=== PATIENT | female | born 1965 | race Caucasian/White ===

== ENCOUNTER 2017-01-24 21:48 | Inpatient (IN) | payer MEDICARE, OTHER ==
[~2017-01-24] VITALS: Ht 154.9 cm; Wt 74.0 kg
[~2017-01-24 21:48] MED LIST: ABILIFY2 MG PO; ACCOLATE20 MG PO; ADVAIR DISK1 INH; APAP OR; ASPIRIN81 MG PO; BACTRIM DS1 TAB PO; BUSPIRONE5 MG PO; CEPHALEXIN500 MG PO; CIPRO500 MG OR; COMBIVENT IN; DALIRESP500 MCG PO; DONEPEZIL10 MG PO; DOXYCYCL HYC100 M3 OR; DUONEB IN; EFFEXOR XR150 MG OR; EFFEXOR XR75 MG PO; FERR SULFATE325 MG PO; FIORICET PO; FLEXERIL10 MG PO; FLOVENT HFA44 MCG IN; FLUTICASONE50 MCG; GABAPENTIN300 MG PO; HUMULI1; HYDROCHLOROT12.5 MG PO; HYDROCO/APAP1 TA9 PO; K-PHO1 OR; LASIX 40 MG TAB40 MG PO; LEVAQUIN750 MG PO; LEVEMIR SC; LEVEMIR1000 UNITS SC; LORTAB 1010 MG PO; LOSARTAN POT50 MG PO; MEDDOSEPAK OR; MEDDOSEPAK PO; MEMANTINE HCL5 MG PO; NORCO1 TAB PO; NORVASC10 M1 PO; NOVOLIN R SC; NOVOLOG100 IU/1 M SC; NYSTATIN100000 M1 PO; OXYBUTYNIN5 MG PO; OXYCOD OR; PREDNISONE10 MG PO; PREVACID15 M1 PO; PREVACID30 M1 PO; PROBIOTIC COLON PO; PROTONIX40 MG PO; PROVENTIL INH17 GM IN; PROVENTIL0.083 % IN; PROZAC40 MG PO; RANITIDINE150 MG PO; RESTORIL15 MG PO; RISPERDAL0.25 MG PO; RISPERDAL0.5 MG PO; RISPERDAL1 M1 OR; RISPERIDONE0.5 MG PO; ROBITUSSIN AC10 ML PO; SINGULAIR 10 MG10 MG PO; SYMBICORT 80-4.5MCG IN; SYMBICORT1 AE1 IN; TOPAMAX25 MG PO; TRAZODONE50 MG PO; VENLAFAXINE HC150 MG PO; VENTOLIN HFA IN; XANAX XR0.5 MG PO; [UNRECOGNIZED DRUG - OTHER] PO
[2017-01-24 22:59] LABS: HEMATOCRIT 38.1 % (37.0-47.0); HEMOGLOBIN 11.6 g/dl (12.0-16.0); IMMATURE GRANULOCYTES 0.9 % (0.0-1.0); MEAN CELL VOLUME 102.7 fL CALC (80.0-100.0); MEAN CORPUSCULAR HGB 31.3 pG CALC (26.0-32.0); MEAN CORPUSCULAR HGB CONC 30.4 g/L CALC (32.0-36.0); NEUT# 10.12 thou/uL (2.00-7.15); RED BLOOD COUNT 3.71 mill/uL (4.20-5.60); RED CELL DISTRI WIDTH 14.7 % (11.5-15.5)
[2017-01-24 23:08] LABS: ALBUMIN 3.9 g/dL (3.2-5.0); ALKALINE PHOSPHATASE 122 u/l (38-126); ANION GAP 16 (6-22 (CALC)); BILIRUBIN, TOTAL 0.4 mg/dL (0.0-1.4); BUN 19 mg/dL (7-17); BUN/CREATININE RATIO 30 (12-20 (CALC)); CALCIUM 9.1 mg/dL (8.4-10.2); CARBON DIOXIDE 32 mmol/l (22-30); CHLORIDE 98 mmol/l (95-108); CREATININE 0.6 mg/dL (0.5-1.0); GFR > 60 ML/MIN (>=60 (CALC)); GFR FOR AFR.AMER. > 60 ML/MIN (>=60 (CALC)); GLUCOSE 105 mg/dL (65-105); POTASSIUM 3.2 mmol/l (3.5-5.1); SGOT/AST 19 u/l (14-36); SGPT/ALT 28 u/l (9-52); SODIUM 143 mmol/l (137-146); TOTAL PROTEIN 7.4 g/dL (6.3-8.2)
[2017-01-24 23:19] LABS: MYOGLOBIN 176 ng/mL (0 - 62)
[2017-01-25 02:21] LABS: URINE BILIRUBIN - DIPSTICK NEGATIVE (NEGATIVE); URINE BLOOD DIPSTICK NEGATIVE (NEGATIVE); URINE CLARITY CLEAR; URINE COLOR YELLOW; URINE GLUCOSE - DIPSTICK NEGATIVE (NEGATIVE); URINE KETONE NEGATIVE (NEGATIVE); URINE LEUK ESTERASE NEGATIVE (NEGATIVE); URINE NITRITE - DIPSTICK NEGATIVE (Negative); URINE PH 5.5 (4.5-8.0); URINE PROTEIN - DIPSTICK TRACE mg/dL (NEG-TRACE); URINE SPECIFIC GRAVITY >=1.030; URINE UROBILINOGEN - DIPSTICK 0.2 E.U./dL (0.2)
[2017-01-25 02:25] LABS: COCAINE NEGATIVE (NEGATIVE); METHADONE NEGATIVE (NEGATIVE); TETRAHYDROCANNABIONOL NEGATIVE (NEGATIVE)
[2017-01-25 02:26] LABS: BARBITURATES NEGATIVE (NEGATIVE); TRICYLIC ANTIDEPRESSANTS NEGATIVE (NEGATIVE)
[2017-01-25 02:27] LABS: OXCYCODONE NEGATIVE (NEGATIVE)
[2017-01-25 05:00] VITALS: BP 102/61; BP 93/61
[2017-01-25 07:47] VITALS: BP 97/60
[2017-01-25 15:38] VITALS: BP 95/50
[2017-01-25 19:10] VITALS: BP 101/71
[2017-01-25 20:21] LABS: CHOLESTEROL HDL RATIO 3.5 (<4.4 (CALC))
[2017-01-25 23:40] VITALS: BP 106/67
[2017-01-26 04:40] VITALS: BP 102/66
[2017-01-26 04:47] LABS: HEMATOCRIT 34.4 % (37.0-47.0); HEMOGLOBIN 10.7 g/dl (12.0-16.0); MEAN CELL VOLUME 101.2 fL CALC (80.0-100.0); MEAN CORPUSCULAR HGB 31.5 pG CALC (26.0-32.0); MEAN CORPUSCULAR HGB CONC 31.1 g/L CALC (32.0-36.0); RED BLOOD COUNT 3.4 mill/uL (4.20-5.60); RED CELL DISTRI WIDTH 13.9 % (11.5-15.5)
[2017-01-26 05:04] LABS: ANION GAP 16 (6-22 (CALC)); BUN 9 mg/dL (7-17); BUN/CREATININE RATIO 16 (12-20 (CALC)); CALCIUM 8.8 mg/dL (8.4-10.2); CARBON DIOXIDE 29 mmol/l (22-30); CHLORIDE 100 mmol/l (95-108); CREATININE 0.6 mg/dL (0.5-1.0); GFR > 60 ML/MIN (>=60 (CALC)); GFR FOR AFR.AMER. > 60 ML/MIN (>=60 (CALC)); GLUCOSE 261 mg/dL (65-105); MAGNESIUM 2.2 mg/dL (1.6-2.3); POTASSIUM 4.3 mmol/l (3.5-5.1); SODIUM 140 mmol/l (137-146)
[2017-01-26 08:10] VITALS: BP 113/71
[2017-01-26 11:05] VITALS: BP 108/59
[2017-01-26 15:02] VITALS: BP 100/55
[2017-01-26] MEDS ORDERED: MONTELUKAST SOD10 MG PO (17:12)
[2017-01-26] MEDS ORDERED: NORFLEX30 MG/M1 PO (17:13)
[2017-01-26] MEDS ORDERED: NOVOLIN 70/30 SC (17:16)
[2017-01-26] MEDS ORDERED: PROAIR HFA108 MCG/AC IN (18:14)
[2017-01-26] MEDS ORDERED: PROTONIX40 M2 PO (18:15)
[2017-01-26] MEDS ORDERED: RESTASIS0.05 % OU (18:19)
[2017-01-26] MEDS ORDERED: RISPERIDONE0.5 MG PO (18:20)
[2017-01-26] MEDS ORDERED: SYMBICORT1 AE1 IN (18:20)
[2017-01-26] MEDS ORDERED: TOPAMAX50 M1 PO (18:25)
[2017-01-26] MEDS ORDERED: [UNRECOGNIZED DRUG - OTHER] SC (18:33)
[2017-01-26] MEDS ORDERED: ZYRTEC10 M5 PO (18:34)
[2017-01-26] MEDS ORDERED: ABILIFY5 MG PO (18:35)
[2017-01-26] MEDS ORDERED: BUSPIRONE15 MG PO (18:36)
[2017-01-26] MEDS ORDERED: DALIRESP500 MCG PO (18:36)
[2017-01-26] MEDS ORDERED: FIORICET PO (18:37)
[2017-01-26] MEDS ORDERED: FLONASE AL50 MCG/ACT (18:39)
[2017-01-26] MEDS ORDERED: FLUOXETINE20 MG PO (18:39)
[2017-01-26] MEDS ORDERED: GABAPENTIN100 MG PO (18:40)
[2017-01-26] MEDS ORDERED: MEMANTINE HCL10 MG PO (18:41)
[2017-01-26] MEDS ORDERED: LEVEMIR100 UNIT/M SC (18:42)
[2017-01-26 20:40] VITALS: BP 108/65
[2017-01-27] VITALS (7 sets, daily range): BP systolic 102–136; BP diastolic 61–71
[2017-01-27 06:43] LABS: HEMATOCRIT 34.6 % (37.0-47.0); HEMOGLOBIN 10.8 g/dl (12.0-16.0); IMMATURE GRANULOCYTES 1.7 % (0.0-1.0); MEAN CELL VOLUME 101.8 fL CALC (80.0-100.0); MEAN CORPUSCULAR HGB 31.8 pG CALC (26.0-32.0); MEAN CORPUSCULAR HGB CONC 31.2 g/L CALC (32.0-36.0); NEUT# 15.38 thou/uL (2.00-7.15); RED BLOOD COUNT 3.4 mill/uL (4.20-5.60); RED CELL DISTRI WIDTH 14.2 % (11.5-15.5)
[2017-01-27 07:05] LABS: ANION GAP 14 (6-22 (CALC)); BUN 11 mg/dL (7-17); BUN/CREATININE RATIO 18 (12-20 (CALC)); CALCIUM 9.2 mg/dL (8.4-10.2); CARBON DIOXIDE 29 mmol/l (22-30); CHLORIDE 103 mmol/l (95-108); CREATININE 0.6 mg/dL (0.5-1.0); GFR > 60 ML/MIN (>=60 (CALC)); GFR FOR AFR.AMER. > 60 ML/MIN (>=60 (CALC)); GLUCOSE 126 mg/dL (65-105); POTASSIUM 4.4 mmol/l (3.5-5.1); SODIUM 142 mmol/l (137-146)
[2017-01-28 04:07] VITALS: BP 117/79
[2017-01-28 04:56] LABS: ANION GAP 14 (6-22 (CALC)); BUN 18 mg/dL (7-17); BUN/CREATININE RATIO 28 (12-20 (CALC)); CALCIUM 9.1 mg/dL (8.4-10.2); CARBON DIOXIDE 27 mmol/l (22-30); CHLORIDE 104 mmol/l (95-108); CREATININE 0.7 mg/dL (0.5-1.0); GFR > 60 ML/MIN (>=60 (CALC)); GFR FOR AFR.AMER. > 60 ML/MIN (>=60 (CALC)); GLUCOSE 209 mg/dL (65-105); POTASSIUM 4.3 mmol/l (3.5-5.1); SODIUM 141 mmol/l (137-146)
[2017-01-28 05:55] LABS: HEMATOCRIT 38.2 % (37.0-47.0); HEMOGLOBIN 11.7 g/dl (12.0-16.0); IMMATURE GRANULOCYTES 3.9 % (0.0-1.0); MEAN CELL VOLUME 102.7 fL CALC (80.0-100.0); MEAN CORPUSCULAR HGB 31.5 pG CALC (26.0-32.0); MEAN CORPUSCULAR HGB CONC 30.6 g/L CALC (32.0-36.0); NEUT# 8.58 thou/uL (2.00-7.15); RED BLOOD COUNT 3.72 mill/uL (4.20-5.60); RED CELL DISTRI WIDTH 14.7 % (11.5-15.5)
[2017-01-28 08:23] VITALS: BP 116/73
[2017-01-28 11:00] VITALS: BP 106/67
[2017-01-28] MEDS ORDERED: PREDNISONE10 MG PO (12:36)
[2017-01-28] MEDS ORDERED: LEVAQUIN750 MG PO (12:36)
== END 2017-01-28 13:55 | DRG 189 ==
LOC: ENPENDDIS → ED 21:48 → ED-I 01-25 01:33 → ED 01-25 01:54 → MS2 01-25 01:55
PROVIDERS: Emergency Medicine; Internal Medicine; Nurse Practitioner Family; ADMIT Internal Medicine; ATTEND Internal Medicine
DX: J96.22 Acute and chronic respiratory failure with hypercapnia (principal); G93.40 Encephalopathy, unspecified; E87.2 Acidosis; J44.0 Chronic obstructive pulmonary disease with (acute) lower respiratory infection; F03.90 Unspecified dementia, unspecified severity, without behavioral disturbance, psychotic disturbance, mood disturbance, and anxiety; J44.1 Chronic obstructive pulmonary disease with (acute) exacerbation; J96.21 Acute and chronic respiratory failure with hypoxia; J20.9 Acute bronchitis, unspecified; E11.9 Type 2 diabetes mellitus without complications; F31.9 Bipolar disorder, unspecified; G89.4 Chronic pain syndrome; S00.03XA Contusion of scalp, initial encounter; M51.26 Other intervertebral disc displacement, lumbar region; S82.831A Other fracture of upper and lower end of right fibula, initial encounter for closed fracture; R55 Syncope and collapse; W19.XXXA Unspecified fall, initial encounter; Y92.009 Unspecified place in unspecified non-institutional (private) residence as the place of occurrence of the external cause; Z99.81 Dependence on supplemental oxygen; Z79.4 Long term (current) use of insulin; Z87.891 Personal history of nicotine dependence; Z87.01 Personal history of pneumonia (recurrent)
CPT/HCPCS: J1650

== ENCOUNTER 2017-04-13 15:08 | Emergency (ER) | payer MEDICARE, OTHER ==
[~2017-04-13 15:08] MED LIST changes: +ABILIFY5 MG PO; +BUSPIRONE15 MG PO; +FLONASE AL50 MCG/ACT; +FLUOXETINE20 MG PO; +GABAPENTIN100 MG PO; +LEVEMIR100 UNIT/M SC; +MEMANTINE HCL10 MG PO; +MONTELUKAST SOD10 MG PO; +NORFLEX30 MG/M1 PO; +NOVOLIN 70/30 SC; +PROAIR HFA108 MCG/AC IN; +PROTONIX40 M2 PO; +RESTASIS0.05 % OU; +TOPAMAX50 M1 PO; +ZYRTEC10 M5 PO; +[UNRECOGNIZED DRUG - OTHER] SC
== END 2017-04-13 15:23 | disposition left against medical advice (07) ==
LOC: ED 15:08 → LWOBS 15:23
DX: Z91.19 Patient's noncompliance with other medical treatment and regimen (principal)

== ENCOUNTER 2017-07-26 13:38 | Emergency (ER) | payer MEDICARE, OTHER ==
[~2017-07-26] VITALS: Ht 154.9 cm; Wt 70.0 kg
[2017-07-26] MEDS ORDERED: MOTRIN400 MG PO (15:52)
[2017-07-26 16:30] VITALS: BP 117/81
== END 2017-07-26 16:30 | disposition home or self-care (01) ==
LOC: ED 13:38
DX: M25.512 Pain in left shoulder (principal); W18.39XA Other fall on same level, initial encounter; Y93.01 Activity, walking, marching and hiking; Y92.009 Unspecified place in unspecified non-institutional (private) residence as the place of occurrence of the external cause; M25.522 Pain in left elbow; I10 Essential (primary) hypertension

== ENCOUNTER 2018-12-07 11:01 | Inpatient (IN) | payer MEDICARE, OTHER ==
[2018-12-07] VITALS (12 sets, daily range): BP systolic 109–145; BP diastolic 64–92
[~2018-12-07] VITALS: Ht 154.9 cm; Wt 84.0 kg
[~2018-12-07 11:01] MED LIST changes: +MOTRIN400 MG PO
--- NOTE | 2018-12-07 11:01 | NUR ---
P IMMEDIATELY TO TX ROOM VIA WC IN RESP DISTRESS, SKIN PALE AND THOMPSON, PT ALERT
--- NOTE | 2018-12-07 11:10 | NUR ---
PT SITTING UPRIGHT IN STRECHER IN TRIPOD POSITION. DAUGHTER REPORTS INCREASED SOB X 1 WEEK. SHE ALSO REPORTS MOTHER HAS BEEN IN AND OUT OF HOPITAL FOR PNEUMONIA AND COPD CHANGES. PT SAO2 85% ON 3L NC AT THIS TIME. RR, 30. NUMEROUS ATTEMPTS MADE FOR IV ACCESS. DR LAST AT BEDSIDE AND IV ACCESS OBTAINED. NEB TREATMENT INITIATED.
--- NOTE | 2018-12-07 11:20 | NUR ---
PT PLACED ON BIPAP.
[2018-12-07 11:30] LABS: HEMATOCRIT 35.5 % (37.0-47.0); HEMOGLOBIN 10.8 g/dl (12.0-16.0); MEAN CELL VOLUME 102.6 fL CALC (80.0-100.0); MEAN CORPUSCULAR HGB 31.2 pG CALC (26.0-32.0); MEAN CORPUSCULAR HGB CONC 30.4 g/L CALC (32.0-36.0); RED BLOOD COUNT 3.46 mill/uL (4.20-5.60)
[2018-12-07 11:34] LABS: IMMATURE GRANULOCYTES 8.4 % (0.0-5.0); NEUT# 2.64 thou/uL (2.00-7.15)
[2018-12-07 11:50] LABS: ALBUMIN 3.7 g/dL (3.2-5.0); ALKALINE PHOSPHATASE 147 u/l (38-126); ANION GAP 13 (6-22 (CALC)); BILIRUBIN, TOTAL 0.5 mg/dL (0.0-1.4); BUN 8 mg/dL (7-17); BUN/CREATININE RATIO 18 (12-20 (CALC)); CARBON DIOXIDE 27 mmol/l (22-30); CHLORIDE 106 mmol/l (95-108); CREATININE 0.5 mg/dL (0.5-1.0); GFR > 60 ML/MIN (>=60 (CALC)); GFR FOR AFR.AMER. > 60 ML/MIN (>=60 (CALC)); POTASSIUM 3.6 mmol/l (3.5-5.1); SGOT/AST 16 u/l (14-36); SODIUM 143 mmol/l (137-146)
--- NOTE | 2018-12-07 11:50 | NUR ---
PT WANTING BIPAP TAKEN OFF, RT AT BEDSIDE AND EXPLAINED IMPORTANCE AND NEED OF BIPAP. PT AGREED TO LEAVE IT ON. PT BP 89/66, NOTIFIED. PT ALSO REPORTS MIDSTERNAL CHEST PAIN AFTER STARTING BIPAP AND REQUESTING SOMETHING FOR PAIN.
[2018-12-07 12:00] LABS: MYOGLOBIN 15 ng/mL (0 - 62)
--- NOTE | 2018-12-07 12:30 | NUR ---
PT RESTING COMFORTABLY IN STRETCHER IN NAD. PT TALKING THROUGH BIPAP WITH FAMILY MEMBER AND LAUGHING. RT AT BEDSIDE MAKING CHANGES TO BIPAP. IV FLUIDS AND ROCEPHIN INFUSING. PT REPORTS CONTINUED PAIN TO CHEST. NOTIFIED.
--- NOTE | 2018-12-07 13:05 | NUR ---
PT REPORT TO PAUL STARR.
--- NOTE | 2018-12-07 13:25 | NUR ---
PT TOLERATING BIPAP WELL WITH O2 SAT 95%. FAMILY AT BEDSIDE. UPDATED PT ON POC AND ADMIT.
--- NOTE | 2018-12-07 13:45 | NUR ---
AT BEDSIDE TALKING WITH FAMILY. FAMILY WANTS PATIENT TO STAY AT [facility] IF POSSIBLE
--- NOTE | 2018-12-07 14:00 | NUR ---
PT CONTINUES WITH IVF BOLUS ORDERED, TOLERATING WELL. NO RESP DISTRESS. MAEW. ALERT AND ORIENTED X3.
--- NOTE | 2018-12-07 14:06 | NUR ---
Dr Mendoza at bedside to examine pt
--- NOTE | 2018-12-07 14:20 | NUR ---
INITIATED ALEXA FOR PT COMFORT.EXPLAINED TO PT AND FAMILY. PT UNBALE TO RELATE ALL MEDS OR VERIFY WITH LIST THAT WAS BROUGHT. FAMILY SENT HOME TO GET MEDICATION BOTTLES AND BRING TO BEDSIDE.
--- NOTE | 2018-12-07 15:05 | NUR ---
PT MEDICATED FOR 7/10 PAIN TO LEFT SIDED RIBS. PT REPORTS PAIN TO LEFT RIBS SINCE LAST BRONCOSCOPY "A FEW WEEKS AGO". PT UPDATED ON PLAN FOR ADMISSION AND WAIT TIME. IV FLUIDS INFUSING WITH NO DIFFICULTY. DAUGHTER AT BEDSIDE. PT TOLERTING BIPAP, SAO2 96%.
[2018-12-07 15:21] LABS: URINE BILIRUBIN - DIPSTICK NEGATIVE (NEGATIVE); URINE BLOOD DIPSTICK NEGATIVE (NEGATIVE); URINE COLOR YELLOW; URINE GLUCOSE - DIPSTICK 500 mg/dL (NEGATIVE); URINE KETONE NEGATIVE (NEGATIVE); URINE LEUK ESTERASE NEGATIVE (NEGATIVE); URINE NITRITE - DIPSTICK NEGATIVE (Negative); URINE PH 6.5 (4.5-8.0); URINE PROTEIN - DIPSTICK TRACE mg/dL (NEG-TRACE); URINE SPECIFIC GRAVITY >=1.030; URINE UROBILINOGEN - DIPSTICK 0.2 E.U./dL (0.2)
[2018-12-07 15:25] LABS: BARBITURATES NEGATIVE (NEGATIVE); COCAINE NEGATIVE (NEGATIVE); METHADONE NEGATIVE (NEGATIVE); OXCYCODONE NEGATIVE (NEGATIVE); TETRAHYDROCANNABIONOL NEGATIVE (NEGATIVE); TRICYLIC ANTIDEPRESSANTS NEGATIVE (NEGATIVE)
--- NOTE | 2018-12-07 15:35 | NUR ---
MD AND PTS CARE NURSE NOTIFIED OF LACTIC ACID 5.0.
--- NOTE | 2018-12-07 15:37 | NUR ---
REPORT CALLED TO PAUL NOBLE.
--- NOTE | 2018-12-07 15:53 | NUR ---
SWEETIE LAZO DISCUSSED CONTINUED HYPOTENSION AND ELEVATED LACTIC ACID. NEW ORDERS RECEIVED, PLAN FOR CENTRAL LINE PLACEMENT DISCUSSED WITH DR LAST. PT TALKING THROUGH MASK TO FAMILY AND HAS AGREED FOR CENTRAL LINE PLACEMENT. VERISITE OBTAINED.
--- NOTE | 2018-12-07 16:25 | NUR ---
CENTRAL LINE INITIATED TO RIGHT SUBCLAVIAN BY DR LAST. PT TOLERATED WELL, BLOOD RETURN NOTED TO ALL 3 PORTS.
--- NOTE | 2018-12-07 16:51 | NUR ---
LEVOPHED INITAIED AT 8 MCG/MIN BP 95/63 AT THIS TIME.
--- NOTE | 2018-12-07 16:52 | NUR ---
Admission Note Report Given to: PAUL NOBLE Transported by: Wheelchair X Stretcher Transported with: X Nurse Transporter X Patent IV X O2 X Auto Body Mechanic Apprentice PT TO ICU ROOM 5 ON BIPAP IN STABLE CONDITION ON LEVOPHED INFUSION. PT CARE RELINQUISHED TO PAUL NOBLE.
--- NOTE | 2018-12-07 17:05 | NUR ---
PT ADMITTED TO ICU BED 5 FROM ED, PT TRANFERRED FROM STRETCHER TO BED WITH AX3. PT IS ON BIPAP, SEE RT NOTES. PT HAS 22G TO RFA/SL, 22G TO LH WITH NS RUNNING AT 999ML/HR. NO S/S OF REDNESS/SWELLING OR INFILTRATION NOTED AT SITE. PT HAS CENTRAL LINE/TL TO R SUBCLAVIAN WITH LEVOPHED AT 8MCG/MIN PER PROTOCOL, NO S/S OF INFILTRATION NOTED AT THIS TIME.ASSESSMENT COMPLETED. SEPSIS PROTOCOL IN PLACE. PT A&OX3, ABLE TO MAKE NEEDS KNOWN. ORIENTED TO ROOM, UNIT AND CALL LIGHT. CALL LIGHT IN REACH, WILL MONITOR.
--- NOTE | 2018-12-07 19:10 | NUR ---
PATIENT IS ALERT AND ORIENTED X4. ON CONTINUOUS BIPAP. COARSE LUNG SOUNDS ON RIGHT FRONT AND POSTERIOR SIDES. PUPILS 4 MM SLUGGISH. AFEBRILE. SINUS RHYTHM. ABDOMEN DISTENDED AND SOFT, ACTIVE BOWEL SOUNDS, RADIAL AND PEDAL PULSES STRONG, NO PEDAL EDEMA. NO OPEN SKIN AREAS JUST BRUISING. RIGHT SUBCLAVIAN TRIPLE LUMEN CENTRAL LINE INTACT AND BROWN AND RED LUMENS FLUSH AND RETURN BLOOD PROPERLY. WHITE LUMEN FLUSHES BUT DOES NOT RETURN BLOOD. LEVOPHED DRIP IS INFUSING AT 5 MCG/HR OR 18.8 ML/HR. RFA 22 GAUGE IV INTACT AND FLUSHES PROPERLY, LH 22 GAUGE INTACT AND FLUSHES PROPERLY. PATIENT HAS BEEN EDUCATED ABOUT BIPAP AND PLAN OF CARE, I HAVE REPORTED TO HER THE MEDICATIONS SHE WILL BE RECEIVING TONIGHT. CALL LIGHT WITHIN REACH.
--- NOTE | 2018-12-07 21:00 | NUR ---
DAUGHTER AND MALE VISITOR AT BEDSIDE.
--- NOTE | 2018-12-07 21:20 | NUR ---
I HAVE MET AT BEDSIDE WITH PATIENT'S DAUGHTER AND HAVE GIVEN UPDATES. BOX OF MEDICATIONS WAS BROUGHT EARLIER BY DAUGHTER AND I ASKED HER IF ALL THE MEDICATIONS IN THE BOX WERE CURRENT, DAUGHTER SAID IT WAS BEST TO CALL HER PHARMACIES WHICH ARE [facility] AND [facility] TO GET AN ACCURATE LIST. DAUGHTER AND I HAVE LOOKED AT ALL MEDICATIONS IN THE BOX, EMPTY LYRICA BOTTLE FOUND, AND MEDICATION BOTTLE OF FIORICET IN BOX, DAUGHTER WILL BE TAKING BOX OF MEDICATIONS HOME WHICH PATIENT AGREES.
--- NOTE | 2018-12-07 22:14 | NUR ---
PATIENT HOB 45 DEGREES. ON BIPAP. NO ACUTE DISTRESS SHOWN. I HAVE EXPLAINED TO HER BS IS 350 AND HAVE GIVEN HER 4 UNITS INSULIN, DAUGHTER HAD BROUGHT HER A PEPSI AND POURED IT IN A CUP, I HAVE GIVEN PATIENT WATER AND ENCOURAGED HER TO DRINK WATER, TO HELP CONTROL BLOOD SUGAR WELL, PATIENT REPORTS SHE HAS NOT DRANK OUT OF THE PEPSI. CALL LIGHT WITHIN REACH.
[2018-12-08] VITALS (34 sets, daily range): BP systolic 83–120; BP diastolic 56–80
--- NOTE | 2018-12-08 00:03 | NUR ---
RT IN ROOM. PATIENT WITH HOB 45 DEGREES, SLEEPING. NO ACUTE DISTRESS SHOWN. ON CONTINUOUS BIPAP, SATS 92%. NO NEEDS AT THIS TIME. AFEBRILE. LEVOPHED AT 2.5 MCG/MIN. NORMAL SALINE AT 100ML/HR. CALL LIGHT WITHIN REACH.
--- NOTE | 2018-12-08 01:07 | NUR ---
ASSISTED PATIENT TO BEDSIDE COMMODE WITH MINIMAL ASSIST. BIPA ON. PATIENT WEARS PULL UP BRIEFS AND SHE IS INCONTINENT AT TIMES. URINE IS YELLOW AND CLEAR. TRANSFERRED BACK TO BED SAFELY. CALL LIGHT WITHIN REACH.
--- NOTE | 2018-12-08 02:00 | NUR ---
PATIENT WITH HOB 45 DEGREES, SLEEPING. NO ACUTE DISTRESS SHOWN, CONTINUES TO BE ON BIPAP. SATS 92%. NO NEEDS AT THIS TIME. CALL LIGHT WITHIN REACH.
--- NOTE | 2018-12-08 03:00 | NUR ---
RT IN ROOM.
--- NOTE | 2018-12-08 04:35 | NUR ---
PATIENT WITH HOB 45 DEGREES, ON CONTINUOUS BIPAP, SATS 91%-93%. NO ACUTE DISTRESS SHOWN. LUNGS SOUNDS ARE COARSE AND EXPIRATORY WHEEZING NOTED POSTERIORLY. PATIENT SLEEPING BUT ABLE TO AROUSE EASILY. ASSISTED TO REMOVE MASK TO DRINK WATER. NO NEEDS AT THIS TIME. CALL LIGHT WITHIN REACH. WILL CONTINUE TO MONITOR.
[2018-12-08 05:20] LABS: MEAN CELL VOLUME 102.9 fL CALC (80.0-100.0); MEAN CORPUSCULAR HGB 31.5 pG CALC (26.0-32.0); MEAN CORPUSCULAR HGB CONC 30.6 g/L CALC (32.0-36.0); RED BLOOD COUNT 2.76 mill/uL (4.20-5.60)
[2018-12-08 05:37] LABS: CHOLESTEROL HDL RATIO 4.7 (<4.4 (CALC)); HEMATOCRIT 28.4 % (37.0-47.0); HEMOGLOBIN 8.7 g/dl (12.0-16.0); MAGNESIUM 1.9 mg/dL (1.6-2.3)
[2018-12-08 05:40] LABS: ANION GAP 7 (6-22 (CALC)); BUN 8 mg/dL (7-17); BUN/CREATININE RATIO 19 (12-20 (CALC)); CARBON DIOXIDE 31 mmol/l (22-30); CHLORIDE 107 mmol/l (95-108); CREATININE 0.4 mg/dL (0.5-1.0); GFR > 60 ML/MIN (>=60 (CALC)); GFR FOR AFR.AMER. > 60 ML/MIN (>=60 (CALC)); POTASSIUM 3.7 mmol/l (3.5-5.1); SODIUM 142 mmol/l (137-146)
--- NOTE | 2018-12-08 06:15 | NUR ---
PATIENT SLEEPING, EASILY AROUSES. ON CONTINUOUS BIPAP, SATS 90%. NORMAL SALINE INFUSING AT 100 ML/HR. NO REPORTS OF PAIN, NO NEEDS AT THIS TIME. CALL LIGHT WITHIN REACH. WILL CONTINUE TO MONITOR.
--- NOTE | 2018-12-08 06:45 | NUR ---
RESPIRATORY REMOVED PT FROM BIPAP AND PLACED PT ON O2 4L NC.
--- NOTE | 2018-12-08 07:00 | NUR ---
PT RESTING IN BED AWAKE. PT IS ALERT AND ORIENTED X3. SHIFT ASSESSMENT COMPLETED AT THIS TIME. IV PATENT X3. CALL LIGHT IN REACH. WILL CONTINUE TO MONITOR.
--- NOTE | 2018-12-08 07:30 | NUR ---
ASSISTED PT TO BSC TO VOID. PT ABLE TO TRANSFER SELF WITH MINIMAL ASSIST.
--- NOTE | 2018-12-08 07:40 | NUR ---
OBTIANED NORSE CULTURE FOR HISTORY OF MRSA PER PATIENT AND PLACED PT ON CONTACT PRECAUTIONS
--- NOTE | 2018-12-08 07:45 | NUR ---
PT SET UP FOR AM MEAL
--- NOTE | 2018-12-08 09:45 | NUR ---
PT RESTING IN BED AWAKE TALKING ON PHONE RESP ARE EVEN AND UNLABORED. NO DISTRESS NOTED. CALL LIGHT IN REACH. WILL CONTINUE TO MONITOR.
--- NOTE | 2018-12-08 10:30 | NUR ---
OBTAINED CONSENT FROM PATIENT FOR MEDICAL RECORD RELEASE FOR [facility] AND [facility]. RELEASES FAXED TO BOTH FOR RECORDS
--- NOTE | 2018-12-08 10:45 | NUR ---
DR JOVEL AT BEDSIDE TO DISCUSS PLAN OF CARE WITH PATIENT
--- NOTE | 2018-12-08 10:53 | NUR ---
DAUGHTER ABISAI CALLED UPSET SHOUTING ON PHONE AND THREATENING TO SHOW OUT AND WANTING ANOTHER DRUG TEST TO BE DONE STATING MOTHER IS TO SICK TO DO DRUGS AND THREATENING TO COME HOSPITAL AND SHOW OUT. DAUGHTER ALSO UPSET THAT PATIENT WAS TOLD TO CLEAN OUT MEDICINE CONTAINER AND HAVE DAUGHTER BRING BACK MEDICINE TO UPDATE MED LIST. DAUGHTER ASKED NOT TO YELL AT STAFF. DAUGHTER HUNG UP PHONE
--- NOTE | 2018-12-08 11:01 | NUR ---
EXPLAINED TO BRISEYDA THAT DAUGHTER CALLED STAFF YELLING AND UPSET AND REQUESTED THAT PATIENT BE RETESTED. EXPLAINED THAT PATIENT TESTED POSITIVE IN 2017. PT CONTINUES TO DENY DRUG USE. EXPLAINED THAT WE COULD RETEST. FRESH HAT AND URINE SPECIMEN CUP IN ROOM FOR PATIENT TO VOID. PT AGREED TO BE RETESTED.
--- NOTE | 2018-12-08 11:45 | NUR ---
DAUGHTER ABISAI CALLED AGAIN UPSET ABOUT DRUG TEST AND WANTIGN TO BE NOTIFIED ONCE REPEAT IS DOEN. EXPLAINED THAT THE PATIENT COULD NOTIFY HER. DAUGHTER WAS UPSET. PATIENT GAVE PERMISSION TO NOTIFY DAUGHTER ABISAI OF REPEAT UDS SHE IS HER POA. DAUGHTER STATES THAT SHE IS UNABLE TO BRING MEDICATIONS DUE TO NO TRANSPORTATION. EXPLAINED THAT WAS OK. DAUGHTER VERY UPSET AT THIS TIME STILL. AFTER SPEAKING WITH PATIENT WE DECIDED TO HAVE DA[facility] AND GO THROUGH MEDICATION BOX VIA PHONE WITH NURSE AND PROVIDE MEDICATION LIST.
--- NOTE | 2018-12-08 12:30 | NUR ---
PT REFUSED ALL PERSONAL CARE STATING THAT SHE IS TIRED AND WILL WAIT UNTIL TOMORROW
--- NOTE | 2018-12-08 12:54 | NUR ---
VISITORS INTO ROOM AT THIS TIME.
--- NOTE | 2018-12-08 13:10 | NUR ---
NURSE INTO ROOM TO DISCUSS PLAN OF CARE WITH VISITORS PER PT REQUEST. PLAN OF CARE REVIEWED WITH FRIEND JUNAID. EXPLAINED THAT WE ARE AWAITING MEDICAL RECORDS FROM PREVIOUS ADMITS FROM [facility] AND [facility]. JUNAID STATES THAT SHE WILL GO AND DEVELOPMENT TECHNICAL LEAD MEDICATIONS AND BRING TO HOSPITAL FOR MEDCIATION RECONCILLIATION.
--- NOTE | 2018-12-08 13:30 | NUR ---
PT ASSISTED UP TO BSC TO VOID. URINE SPECIMEN OBTAINED DRUG SCREEN AND SENT TO LAB PER PATIENT AND DAUGHTER REQUEST.
[2018-12-08 13:43] LABS: BARBITURATES NEGATIVE (NEGATIVE); COCAINE NEGATIVE (NEGATIVE); METHADONE NEGATIVE (NEGATIVE); OXCYCODONE NEGATIVE (NEGATIVE); TETRAHYDROCANNABIONOL NEGATIVE (NEGATIVE); TRICYLIC ANTIDEPRESSANTS NEGATIVE (NEGATIVE)
--- NOTE | 2018-12-08 14:01 | NUR ---
REVIEWED UDS RESULTS WITH PATIENT. OFFERRED TO CALL RESULTS TO DAUGHTER PER PREVIOUS REQUEST. PATIENT STATES SHE HAS BEEN UNABLE TO REACH DAUGHTER AT THIS TIME AND WILL LET HER KNOW THE RESULTS SOON SHE IS ABLE TO GET IN TOUCH WITH HER.
--- NOTE | 2018-12-08 14:40 | NUR ---
FRIEND JUNAID AT BEDSIDE AND BROUGHT HOME MEDICATIONS IN. MADE LIST OF ALL HOME MEDICAITONS. DAUGHTER DEMETRIA ON PHONE OFFERRED TO RN CORRECTIONS RESULTS OF URINE DRUG SCREEN FRIEND JUNAID STATES THAT DAUGHTER WILL NOT SPEAK TO THIS NURSE. THIS NURSE VERBALIZED UNDERSTANDING. FRIEND STATED SHE WOULD NOTIFY OF RESULTS. CODE PROVIDED TO JUNAID TO PROVIDE TO NECESSARY FAMILY MEMBERS TO BE ABLE TO CALL FOR UPDATES.
[2018-12-08] MEDS ORDERED: BENZTROPINE0.5 MG PO (14:45)
[2018-12-08] MEDS ORDERED: BACLOFEN10 MG PO (14:47)
[2018-12-08] MEDS ORDERED: PREDNISONE10 MG PO (14:49)
[2018-12-08] MEDS ORDERED: PROTONIX40 MG PO (15:00)
[2018-12-08] MEDS ORDERED: RISPERDAL1 M1 PO (15:02)
[2018-12-08] MEDS ORDERED: DALIRESP500 MCG PO (15:03)
[2018-12-08] MEDS ORDERED: LYRICA25 MG PO (15:03)
[2018-12-08] MEDS ORDERED: MOTRIN800 MG PO (15:04)
[2018-12-08] MEDS ORDERED: PROZAC40 MG PO (15:06)
[2018-12-08] MEDS ORDERED: TRAZODONE300 MG PO (15:07)
[2018-12-08] MEDS ORDERED: TOPAMAX50 M1 PO (15:08)
[2018-12-08] MEDS ORDERED: ARIPIPRAZOLE5 MG PO (15:08)
[2018-12-08] MEDS ORDERED: ZANTAC150 M1 PO (15:10)
[2018-12-08] MEDS ORDERED: SINGULAIR10 MG PO (15:12)
[2018-12-08] MEDS ORDERED: EFFEXOR XR150 MG PO (15:14)
[2018-12-08] MEDS ORDERED: LEVEMIR100 UNIT/M SC (15:25)
[2018-12-08] MEDS ORDERED: [UNRECOGNIZED DRUG - OTHER] OU (15:32)
--- NOTE | 2018-12-08 16:00 | NUR ---
PT SITTING UP IN BED TALKING ON PHONE. CALL LIGHT IN REACH. WILL CONTINUE TO MONITOR
--- NOTE | 2018-12-08 16:45 | NUR ---
PER PATIENT REQUEST IV site LH discontinued, cath intact. No edema , no redness, voices no discomfort.
--- NOTE | 2018-12-08 17:14 | NUR ---
PT ASSISTED TO BSC TO VOID
--- NOTE | 2018-12-08 17:45 | NUR ---
PT SET UP FOR PM MEAL.
--- NOTE | 2018-12-08 18:15 | NUR ---
PT SITTING UP IN BED WATCHING TV. RESP ARE EVEN AND UNLABORED. NO DISTRESS NOTED. CALL LIGHT IN REACH. WILL CONTINUE TO MONITOE.
--- NOTE | 2018-12-08 19:35 | NUR ---
PATIENT IS SITTING UP IN BED. ON 4 LITERS NASAL CANNULA. NO ACUTE RESPIRATORY DISTRESS NOTED. ALERT AND ORIENTED X4. PUPILS 4MM AND SLUGGISH. ABDOMEN SOFT AND DISTENDED WITH ACTIVE BOWEL SOUNDS. PATIENT HAS POSTERIOR COARSE AND EXPIRATORY WHEEZING LS. NO EDEMA PRESENT. RADIAL AND PEDAL PULSES STRONG. URINE IS YELLOW AND CLEAR, INCONTINENT AT TIMES, WEARS PULL UP BRIEFS. NO SKIN ISSUES. REPORTS NO PAIN. RIGHT SUBCLAVIAN CENTRAL LINE TRIPLE LUMEN FLUSHES IN ALL AND ONLY RETURNS BLOOD IN BROWN AND BLUE LINES. RFA 22 GAUGE IV IS INTACT AND FLUSHES PROPERLY. NORMAL SALINE INFUSING AT 100ML/HR. PATIENT HAS A LOOSE NONPRODUCTIVE COUGH. NO NEEDS AT THIS TIME. CALL LIGHT WITHIN REACH WILL CONTINUE TO MONITOR.
--- NOTE | 2018-12-08 21:30 | NUR ---
PATIENT REQUESTED TO SLEEP WITH N/C., NOT TO BE PLACED ON BIPAP. RN WILL CALL IF SPO2 DROP LOWER THAN 90%
--- NOTE | 2018-12-08 21:40 | NUR ---
PATIENT ASSISTED TO BSC WITH MINIMAL ASSIST. BRIEF WAS CHANGED DUE TO INCONTINENCE. PATIENT SAFELY TRANSFERRED BACK TO BED WITH HOB 45 DEGREES. BECOMES SHORT OF BREATH WITH EXERTION. ON 4 LITERS NASAL CANNULA. CALL LIGHT WITHIN REACH.
[2018-12-09] VITALS (20 sets, daily range): BP systolic 101–146; BP diastolic 57–84
--- NOTE | 2018-12-09 00:10 | NUR ---
PATIENT WITH HOB 45 DEGREES, ON NASAL CANNULA AT 4 LITERS/MIN. NO ACUTE DISTRESS SHWON. SLEEPING, AROUSES EASILY. AFEBRILE. SELF REPOSITIONS. NO COMPLAINTS OF PAIN. CALL LIGHT WITHIN REACH. WILL CONTINUE TO MOITOR.
--- NOTE | 2018-12-09 00:30 | NUR ---
PATIENT ASSISTED TO AND FROM BSC WITH MINIMAL ASSIST. SHORT OF BREATH WITH EXERTION. CALL LIGHT WITHIN REACH.
--- NOTE | 2018-12-09 02:19 | NUR ---
PATIENT WITH HOB 45 DEGREES, ON NASAL CANNULA AT 4L/MIN. NO ACUTE DISTRESS SHOWN. CALL IGHT WITHIN REACH.
--- NOTE | 2018-12-09 04:43 | NUR ---
PATIENT ASSISTED TO AND FROM [facility] WITH MINIMAL ASSIST, SHE HAD 200ML AND WAS INCONTINENT ON HER BRIEF. ON 4 LITERS NASAL CANNULA. SOB WITH EXERTION. NO COMPLAINTS OF PAIN. CALL LIGHT WITHIN REACH.
[2018-12-09 05:17] LABS: HEMATOCRIT 29.2 % (37.0-47.0); HEMOGLOBIN 8.7 g/dl (12.0-16.0); MEAN CELL VOLUME 105.8 fL CALC (80.0-100.0); MEAN CORPUSCULAR HGB 31.5 pG CALC (26.0-32.0); MEAN CORPUSCULAR HGB CONC 29.8 g/L CALC (32.0-36.0); RED BLOOD COUNT 2.76 mill/uL (4.20-5.60); RED CELL DISTRI WIDTH 19.7 % (11.5-15.5)
--- NOTE | 2018-12-09 06:14 | NUR ---
PATIENT IS SLEEPING, EASILY AROUSES. ON 4 LITERS NASAL CANNULA, SATS 94%. NO ACUTE DISTRESS SHOWN. NO NEEDS AT THIS TIME. WILL CONTINUE TO MONITOR. CALL LIGHT WITHIN RECH.
[2018-12-09 06:15] LABS: ANION GAP 6 (6-22 (CALC)); BUN 11 mg/dL (7-17); BUN/CREATININE RATIO 22 (12-20 (CALC)); CARBON DIOXIDE 34 mmol/l (22-30); CHLORIDE 106 mmol/l (95-108); CREATININE 0.5 mg/dL (0.5-1.0); GFR > 60 ML/MIN (>=60 (CALC)); GFR FOR AFR.AMER. > 60 ML/MIN (>=60 (CALC)); MAGNESIUM 2.2 mg/dL (1.6-2.3); POTASSIUM 3.7 mmol/l (3.5-5.1); SODIUM 142 mmol/l (137-146)
--- NOTE | 2018-12-09 07:20 | NUR ---
PT RESTING IN BED WITH EYES CLOSED AROUSES TO VERBAL STIMULI. PT IS ALERT AND ORIENTED X3.SHIFT ASSESSMENT COMPLETED AT THIS TIME. IV PATNET X2. CALL LIGHT IN REACH. WILL CONTINUE TO MONITOR.
--- NOTE | 2018-12-09 07:40 | NUR ---
PT ASSISTED TO BSC FOR VOID AND BM. MINIMAL ASSIST.
--- NOTE | 2018-12-09 07:45 | NUR ---
PT SET UP FOR AM MEAL
[2018-12-09] MEDS ORDERED: FLONASE AL50 MCG/ACT (08:43)
[2018-12-09] MEDS ORDERED: SYMBICORT1 AE1 IN (08:44)
[2018-12-09] MEDS ORDERED: POM PO ×2 (08:45→08:55)
[2018-12-09] MEDS ORDERED: MEMANTINE HCL10 MG PO (08:48)
[2018-12-09] MEDS ORDERED: PERCOCET1 TA4 PO (08:57)
--- NOTE | 2018-12-09 09:05 | NUR ---
PT TO MS FLOOR VIA WC FOR SHOWER ON O2 4L NC. PT TOLERATED WELL.
--- NOTE | 2018-12-09 09:50 | NUR ---
PT RETURNED TO ICU BED 5 VIA WC. PT REFUSED ORAL CARE. CALL LIGHT IN REACH. WILL CONTINUE TO MONITOR.
--- NOTE | 2018-12-09 11:00 | NUR ---
DR MARQUES AT BEDSIDE TO DISCUSS PLAN OF CARE WITH PATIENT
--- NOTE | 2018-12-09 11:30 | NUR ---
PT SET UP FOR NOON MEAL
--- NOTE | 2018-12-09 11:45 | NUR ---
FRIEND JUNAID CALLED AND STATES THAT HOME O2 MACHINE HAD MOLD IN IT. SPOKE TO DR MARQUES WILL PLACE CASE MANAGEMENT CONSULT
--- NOTE | 2018-12-09 12:00 | NUR ---
TYPED UPDATED MED LIST PROVIDED FOR PATIENT WITH EDUCATION ON IMPORTANCE OF MAINTAINING AN UP TO DATE MED LIST. SPACE PROVIDED ON THIS LIST TO ADD NEW MEDS WELL. PATIENT AND FRIEND JUNAID VERBALIZED UNDERSTANDING.
--- NOTE | 2018-12-09 13:04 | NUR ---
MEDICATED PT PER MAR FOR PAIN AND COUGH. PT ASSISTED TO BSC TO VOID AND BM AND THEN BACK TO BED. CALL LIGHT IN REACH. WILL CONTINUE TO MONITOR
--- NOTE | 2018-12-09 14:00 | NUR ---
PT SITTING UP IN BED TALKING ON PHONE. RESP ARE EVEN AND UNLABORED. NO DISTRESS NOTED.CALL LIGHT IN REACH. WILL CONTINUE TO MONITOR.
--- NOTE | 2018-12-09 16:00 | NUR ---
PT SITTING UP IN BED WATCHING TV. RESP ARE EVEN ADN UNLABORED. NO DISTRESS NOTED. CALL LIGHT IN REACH. WILL CONTINUE TO MONITOR.
--- NOTE | 2018-12-09 17:26 | NUR ---
PT SET UP FOR PM MEAL AND MEDICATED PER SEP FOR PAIN AND COUGH. CALL LIGHT IN REACH. WILL CONTINUE TO MONITOR.
--- NOTE | 2018-12-09 18:50 | NUR ---
REPORT FROM Mattie HAUSER RN. ASSUMED PT. CARE.
--- NOTE | 2018-12-09 20:05 | NUR ---
PT. FOUND RESTING IN BED IN NO DISTRESS. RESPS EVEN AND UNLABORED. SKIN WARM AND DRY. AFEBRILE. C/O 7/10 PAIN TO LT. CHEST WALL WORSE WITH INSPIRATION, COUGH, DEEP BREATHING AND PALPATION. PT. DENIES OTHER COMPLAINT OF PAIN. PT. AMBULATORY TO AND FROM BEDSIDE COMMODE WITHOUT DIFFICULTIES. WATCHING TELEVISION AND SPEAKING ON TELEPHONE WITH FULL SENTENCES. ABD SOFT, DISTENDED. CALL LIGHT WITHIN REACH. SPO2 IS 85-94% ON 2L NC AT THIS TIME. LUNGS COARSE WITH WHEEZES THROUGHOUT. NO COUGH APPRECIATED AT THIS TIME. PT. ENCOURAGED TO PROVIDE SPUTUM SPECIMEN SOON POSSIBLE. ALERT, ORIENTED X 3. WILL CONTINUE TO MONITOR.
--- NOTE | 2018-12-09 21:14 | NUR ---
NEB TREATMENT IN PROGRESS AT THIS TIME.
--- NOTE | 2018-12-09 22:18 | NUR ---
PT. MEDICATED AND PROVIDED SNACK. ASSISTED TO BSC. TOLERATED WELL WITH MILD DUGGAN. BACK TO BED AND PLACED BACK ON THE MONITOR. REMAINS STABLE ON 2L NC. WILL CONTINUE TO ASSESS.
[2018-12-10] VITALS (11 sets, daily range): BP systolic 118–152; BP diastolic 68–90
--- NOTE | 2018-12-10 00:10 | NUR ---
PT. RESTING IN BED WITH EYES CLOSED. RESPS EVEN, SHALLOW, UNLABORED AT THIS TIME. BP/HR STABLE AT THIS TIME. CALL LIGHT WITHIN REACH. WILL CONTINUE TO MONITOR.
--- NOTE | 2018-12-10 02:05 | NUR ---
PT. INCONTINENT IN HER BRIEF. LINENS CHANGED AT THIS TIME. PT. ASSISTED TO BSC AND THEN BACK TO BED. REMAINS STABLE AT THIS TIME. CALL LIGHT PLACED BACK WITHIN REACH. WILL CONTINUE TO ASSESS.
--- NOTE | 2018-12-10 04:02 | NUR ---
LIGHTS DIMMED FOR COMFORT. IV FLUIDS CONTINUE TO INFUSE ORDERED. RESPS REMAINS EVEN, SHALLOW AND UNLABORED. SPO2 IS 94% ON 2L NC. CALL LIGHT REMAINS WITHIN REACH.
--- NOTE | 2018-12-10 05:01 | NUR ---
LABS DRAWN AT THIS TIME. PT. REMAINS RESTING IN BED WITH EYES CLOSED. DENIES OTHER COMPLAINTS.
[2018-12-10 05:22] LABS: HEMATOCRIT 30.2 % (37.0-47.0); MEAN CELL VOLUME 104.9 fL CALC (80.0-100.0); MEAN CORPUSCULAR HGB 31.3 pG CALC (26.0-32.0); MEAN CORPUSCULAR HGB CONC 29.8 g/L CALC (32.0-36.0); RED BLOOD COUNT 2.88 mill/uL (4.20-5.60); RED CELL DISTRI WIDTH 19.1 % (11.5-15.5)
[2018-12-10 05:41] LABS: ANION GAP 6 (6-22 (CALC)); BUN 15 mg/dL (7-17); BUN/CREATININE RATIO 30 (12-20 (CALC)); CARBON DIOXIDE 37 mmol/l (22-30); CHLORIDE 101 mmol/l (95-108); CREATININE 0.5 mg/dL (0.5-1.0); GFR > 60 ML/MIN (>=60 (CALC)); GFR FOR AFR.AMER. > 60 ML/MIN (>=60 (CALC)); POTASSIUM 3.7 mmol/l (3.5-5.1); SODIUM 140 mmol/l (137-146)
--- NOTE | 2018-12-10 07:00 | NUR ---
PT SITTING UP IN BED WATCHING TV. PT IS ALERT AND ORITNED X3. SHIFT ASSESSMENT COMPLETED AT THIS TIME. IV PATENT X2. CALL LIGHT IN REACH. WILL CONTINUE TO MONITOR.
--- NOTE | 2018-12-10 07:45 | NUR ---
PT SET UP FOR AM MEAL
--- NOTE | 2018-12-10 08:30 | NUR ---
PT HAD REMOVED O2. PT IS 77% ON ROOM AIR. INSTRUCTED PT TO PLACE O2 BACK ON AND THE IMPORTANCE OF LEAVING O2 IN PLACE.PT VERBALIZED UNDERSTANDING.
--- NOTE | 2018-12-10 10:30 | NUR ---
DR HIGGINS AT BEDSIDE TO DISCUSS PLAN OF CARE
--- NOTE | 2018-12-10 11:30 | NUR ---
PT SET UP FOR NOON MEAL
--- NOTE | 2018-12-10 11:52 | NUR ---
JACK QUIROGA CALLED FOR UPDATE. VERY UPSET THAT PT HAD STATED SHE WAS BEING TRANSFERRED. EXPLAINED THAT AT THIS TIME THE PATIENT WAS NOT BEING TRANSFERRED. REVEIWED PLAN OF CARE WITH JUNAID VIA PHONE. JUNAID REQUESTED THAT PATIENT NOT BE TRANSFERRED TO [facility]. REQUESTING IF TRANSFER IS NEEDED TO TRNASFER TO [facility]. DR HIGGINS INFORMED OF FAMILY AND PATIENT REQUEST.
--- NOTE | 2018-12-10 13:47 | NUR ---
PT SITTING UP IN BED AWAKE WATCHING TV. RESP ARE EVEN AND UNLABORED. NO DISTRESS NOTED. CALL LIGHT IN REACH. WILL CONTINUE TO MONITOR
--- NOTE | 2018-12-10 14:10 | NUR ---
PT TO RADIOLOGY VIA WHEELCHAIR ON O2 2L NC.
--- NOTE | 2018-12-10 14:35 | NUR ---
PT RETURNED FROM RADIOLOGY VIA WHEELCHAIR IN STABLE CONDITION. ASSISTED BACK TO BED.
--- NOTE | 2018-12-10 16:30 | NUR ---
#22 RFA IV site discontinued, cath intact. No edema , no redness, voices no discomfort.
--- NOTE | 2018-12-10 17:30 | NUR ---
PT SET UP FOR PM MEAL.
--- NOTE | 2018-12-10 18:00 | NUR ---
PT SITTING UP IN BED WATCHING TV. RESP ARE EVEN AND UNLABORED. CALL LIGHT IN REACH. WILL CONTINUE TO MONITOR
--- NOTE | 2018-12-10 18:45 | NUR ---
REPORT FROM Mattie HAUSER RN. ASSUMED PT. CARE.
--- NOTE | 2018-12-10 20:55 | NUR ---
PT. FOUND AWAKE, ALERT, ORIENTED X 3 IN NO DISTRESS. RESPS EVEN, SHALLOW, UNLABORED. SKIN IS WARM AND DRY. PEARL. GARSIA. DENIES COMPLAINTS OF SOB AT THIS TIME. NO COUGH NOTED. DIMINISHED WITH EXP WHEEZES NOTED THROUGHT. ABD DISTENDED, SOFT. BOWEL SOUNDS PRESENT IN ALL QUADS. STATES HER PAIN HAS BEEN BETTER TODAY AND CURRENTLY RATES A 6/10 TO LT. CHEST WALL. PT. DENIES OTHER COMPLAINTS AT THIS TIME. SITTING UP AND DRINKING COFFEE. BP/HR STABLE. SPOW IS 97% ON 2.5L NC.
--- NOTE | 2018-12-10 21:23 | NUR ---
FAMILY AT BEDSIDE AT THIS TIME. PT. ASSISTED TO BSC.
--- NOTE | 2018-12-10 23:46 | NUR ---
PT. MEDICATED WITH SLEEPING PILL AND COUGH MEDICATION PER REQUEST. IV ANTIBIOTICS INFUSING WITHOUT SX OF INFILTRATION OR REACTIONS. CALL LIGHT REMANIS WITHIN REACH. WILL CONTINUE TO ASSESS.
[2018-12-11] VITALS (10 sets, daily range): BP systolic 117–144; BP diastolic 71–90
--- NOTE | 2018-12-11 00:05 | NUR ---
ZOSYN INFUSED. NO REACTIONS NOTED. PT. FOUND RESTING WITH EYES CLOSED IN NO DISTRESS. RESPS EVEN, SHALLOW, UNLABORED. CALL LIGHT REMAINS WITHIN REACH. WILL CONTINUE TO MONITOR.
--- NOTE | 2018-12-11 02:15 | NUR ---
PT. RESTING IN BED WITH SNORING RESPIRATIONS AT THIS TIME. SPO2/HR STABLE. CALL LIGHT REMAINS WITHIN REACH. WILL CONTIUE TO ASSESS.
--- NOTE | 2018-12-11 04:30 | NUR ---
PT. AWAKE, ALERT, ORIENTED X 3. PT. RESTED CONTINUOUS SINCE 23:45 UNTIL THIS TIME. STATES SHE WAS ABLE TO GET SOME UNINTERRUPTED SLEEP. ASSISTED TO BSC AND BACK TO BED. C/O / PAIN AND WAS MEDICATED PER PHYSICIAN ORDERS. PROVIDED WITH COFFEE PER HER REQUEST. WILL CONTINUE TO ASSESS.
--- NOTE | 2018-12-11 05:00 | NUR ---
LAB SPECIMENS OBTAINED AND ALL CENTRAL LINES FLUSHED PER PROTOCOL AT THIS TIME. WILL CONTINUE TO ASSESS.
[2018-12-11 05:21] LABS: HEMATOCRIT 32.4 % (37.0-47.0); HEMOGLOBIN 9.8 g/dl (12.0-16.0); IMMATURE GRANULOCYTES 5.3 % (0.0-5.0); MEAN CELL VOLUME 105.2 fL CALC (80.0-100.0); MEAN CORPUSCULAR HGB 31.8 pG CALC (26.0-32.0); MEAN CORPUSCULAR HGB CONC 30.2 g/L CALC (32.0-36.0); PLATELET COUNT 234 thou/uL (130-400); RED BLOOD COUNT 3.08 mill/uL (4.20-5.60); RED CELL DISTRI WIDTH 18.8 % (11.5-15.5)
[2018-12-11 05:41] LABS: ALBUMIN 3.2 g/dL (3.2-5.0); ALKALINE PHOSPHATASE 101 u/l (38-126); ANION GAP 8 (6-22 (CALC)); BILIRUBIN, TOTAL 0.4 mg/dL (0.0-1.4); BUN 16 mg/dL (7-17); BUN/CREATININE RATIO 33 (12-20 (CALC)); CARBON DIOXIDE 36 mmol/l (22-30); CHLORIDE 101 mmol/l (95-108); CREATININE 0.5 mg/dL (0.5-1.0); GFR > 60 ML/MIN (>=60 (CALC)); GFR FOR AFR.AMER. > 60 ML/MIN (>=60 (CALC)); LIPASE 53 u/l (23-300); MAGNESIUM 2.1 mg/dL (1.6-2.3); POTASSIUM 3.6 mmol/l (3.5-5.1); SGOT/AST 27 u/l (14-36); SODIUM 142 mmol/l (137-146); TOTAL PROTEIN 5.8 g/dL (6.3-8.2)
[2018-12-11 05:49] LABS: AMYLASE < 30 u/l (30-110)
--- NOTE | 2018-12-11 06:05 | NUR ---
PT. FOUND RESTING WITH EYES CLOSED AND IN NO DISTRESS. RESPS REMAIN EVEN, SHALLOW AND UNLABORED. ZOSYN INITIATED AT THIS TIME AND SOLUMEDROL GIVEN PER MD ORDERS. WILL CONTINUE TO ASSESS.
[2018-12-11 06:16] LABS: MANUAL DIFFERENTIAL YES
[2018-12-11 06:17] LABS: OTHER CELL TYPE 2; PLATELET ESTIMATE NORMAL
--- NOTE | 2018-12-11 07:20 | NUR ---
PT ALERT AND ORIENTED SITTING UP IN BED, AM ASSESSMENT COMPLETED SEE INTERVENTIONS, SKIN WARM AND DRY, WITH NO BREAKDOWN NOTED, ABD SOFT BS ACTIVE WITH LAST BM LAST PM PER REPORT, O2 ON AT 2L VIA NC WITH SATS MAINTAINED, PT HAS EXERTIONAL SOB NOT NEW PER PT, LUNG SOUNDS COARSE WTIH MOIST MINIMALLY PRODUCTIVE COUGH, CONTACT PRECAUTIONS MAINTAINED FOR HX OF MRSA, NO EDEMA NOTED, TELE READING SR RATE 80-90'S BP STABLE AND PT AFEBRILE, SAFETY MEASURES REINFORCED, CALL PASCAL WITHIN REACH, WILL CONTINUE TO MONITOR.
--- NOTE | 2018-12-11 08:15 | NUR ---
PT OOB TO BSC INDEPENDENTLY, CONTINENT OF URINE AND LARGE SOFT BROWN BM, SELF YANI CARE PROVIDED, AND BACK TO BED, CALL PASCAL WITHIN REACH.
--- NOTE | 2018-12-11 09:25 | NUR ---
TAKES AM MEDIATIONS W/O INCIDENT, OFFERS NO NEW COMPLAINTS, CALL PASCAL WITHIN REACH
--- NOTE | 2018-12-11 10:19 | NUR ---
IN TO SEE PATIENT
--- NOTE | 2018-12-11 10:23 | NUR ---
PT AWARE OF PLANNED TRASNFER, WILL CALL MED SURG FOR BED PLACEMENT, DIETARY AWARE OF PT REQUEST FOR UN-SWEET TEA.
--- NOTE | 2018-12-11 11:37 | NUR ---
PT EDUCATED REGARDING BACTROBAN OINTMENT AND USAGE, INCLUDING REASON FOR ADMNISTRATION, EXPECTATIONS AND POSSIBLE SIDE EFFECTS, ALL QUESTIONS ANSWERED PT USES W/O INCIDENT, ACCU CHECKC OMPLETED AND COVERAGE GIVEN ORDERED, WILL CONTINUE TO MONITOR.
--- NOTE | 2018-12-11 11:38 | NUR ---
SET UP ASSIST PROVIDED FOR AFTERNOON MEAL, CALL PASCAL WITHIN REACH
--- NOTE | 2018-12-11 12:10 | NUR ---
TOLERATED MEAL W/O INCIDENT, CALL PASCAL WITHIN REACH
--- NOTE | 2018-12-11 13:13 | NUR ---
COFFEE PROVIDED FOR PT REQUESTED, COMFORT MEASURES PROVIDED WELL, CALL PASCAL WITHIN REACH, WILL CONTINUE TO MONITOR.
--- NOTE | 2018-12-11 14:54 | NUR ---
LIGHT BULB REPLACER AT BEDSIDE FOR ECHO ORDERED, PT OFFERS NO COMPLAINTS, CALL PASCAL WITHIN REACH
--- NOTE | 2018-12-11 15:33 | NUR ---
REPORT CALLED TO TAMMY BURDICK ON MED SURG, ROOM [id number] ASSIGNED.
--- NOTE | 2018-12-11 15:45 | NUR ---
PT ARRIVED TO FLOOR VIA W/C ACCOMPANIED BY PAUL CHAVEZ; PT AMBULATED WITH SLOW STEADY GAIT TO DIGITAL GAIT, WT AND VITALS OBTAINED; RESP EVEN AND UNLABORED ON 02@2L NC; RT CENTRAL LINE, NS KVO; PT ASK FOR A FAN; VOICE NO OTHER CONCERNS; CALL PASCAL IN REACH; SAFETY PRECAUTION REINFORCED;
--- NOTE | 2018-12-11 16:38 | NUR ---
PT SITTING UP ON EDGE OF BED WITH ONE LEG IN BED, OTHER LEG HANDING OUT; ASK FOR COFFEE AND CRAKERS (DONE); RESP SOME WHAT LABORED; NO S/S OF DISTRESS NOTED;
--- NOTE | 2018-12-11 19:14 | NUR ---
REPORT RECEIVED FROM DAY NURSE. PT IN BED NO S/O DISTRESS. IV ANTIBIOTIC THERAPY IS JUST COMPLETING. PT ASSISTED TO BSC PRIOR TO US LEAVING THE ROOM. DAY NURSE STAYED W/PT TO ASSIST IN GETTING BACK TO BED. PT IS ASKING FOR COFFEE/PROVIDED.
--- NOTE | 2018-12-11 21:06 | NUR ---
PT ASSISTED TO BSC/MODERATE BROWN SOFT STOOL W/URINE OUTPUT. PT BRIEF SOAKED/CHANGED TO BRIEFS BROUGHT FROM HOME/REQUEST AND NEW GOWN CHANGED. PT MEDICATED ORDERS PROVIDE AND ASSESSMENT COMPLETED AT THIS TIME. PT IS ASKING FOR SANDWICH AND COKE/DENIES DIET COKE. ACCU-CHECK SHOWS BLOOD SUGAR AT 205 AT THIS TIME/SNACK PROVIDED. PT ASSISTED BACK TO BED. DENIES ANY OTHER NEEDS AT THIS TIME, CALL LIGHT AT SIDE.
--- NOTE | 2018-12-12 00:23 | NUR ---
PT MEDICATED ORDERS PROVIDE W/IV ANTIBIOTIC THERAPY. PT RQUESTING COFFEE/DECAF PROVIDED DUE TO PT PREVIOUS REQUEST FOR SLEEPING PILL EARLIER AND PROVIDED. DENIES ANY OTHER NEEDS AT THIS TIME.
[2018-12-12 03:38] VITALS: BP 123/80
--- NOTE | 2018-12-12 03:50 | NUR ---
BLOOD DRAWN FROM CENTRAL LINE FOR LAB DRAWS. SITE FLUSHED ORDERS PROVIDE. PT SITTING UP IN BED AWAKE W/TV ON AND LIGHTS OFF. DENIES BEING ABLE TO SLEEP AND HAS ASKED FOR COFFEE MULTIPLE TIMES THROUGHOUT THE NIGHT/PROVIDED DECAF TWICE. DENIES ANY NEEDS AT THIS TIME. BSC BEDSIDE, PT ASKED TO CALL FOR ASSISTANCE PRIOR TO AMBULATING. CALL LIGHT IN HAND.
--- NOTE | 2018-12-12 05:29 | NUR ---
PT MEDICATED W/IV ANTIBIOTIC THERAPY AND NEW IV FLUIDS. NEW TUBING CHANGED OUT. IV SITE APPEARS HEALTHY AT THIS TIME.
[2018-12-12 05:49] LABS: HEMATOCRIT 32.4 % (37.0-47.0); HEMOGLOBIN 9.9 g/dl (12.0-16.0); IMMATURE GRANULOCYTES 5.9 % (0.0-5.0); MEAN CELL VOLUME 106.2 fL CALC (80.0-100.0); MEAN CORPUSCULAR HGB 32.5 pG CALC (26.0-32.0); MEAN CORPUSCULAR HGB CONC 30.6 g/L CALC (32.0-36.0); RED BLOOD COUNT 3.05 mill/uL (4.20-5.60)
[2018-12-12 06:08] LABS: ALBUMIN 3.2 g/dL (3.2-5.0); ALKALINE PHOSPHATASE 131 u/l (38-126); ANION GAP 9 (6-22 (CALC)); BILIRUBIN, TOTAL 0.4 mg/dL (0.0-1.4); BUN 15 mg/dL (7-17); BUN/CREATININE RATIO 29 (12-20 (CALC)); CARBON DIOXIDE 37 mmol/l (22-30); CHLORIDE 97 mmol/l (95-108); CREATININE 0.5 mg/dL (0.5-1.0); GFR > 60 ML/MIN (>=60 (CALC)); GFR FOR AFR.AMER. > 60 ML/MIN (>=60 (CALC)); MAGNESIUM 2.1 mg/dL (1.6-2.3); POTASSIUM 3.5 mmol/l (3.5-5.1); SGOT/AST 18 u/l (14-36); SODIUM 139 mmol/l (137-146); TOTAL PROTEIN 5.6 g/dL (6.3-8.2)
[2018-12-12 06:36] LABS: MANUAL DIFFERENTIAL YES
[2018-12-12 06:37] LABS: OTHER CELL TYPE 5
[2018-12-12 06:38] LABS: PLATELET COUNT 254 thou/uL (130-400)
--- NOTE | 2018-12-12 06:55 | NUR ---
REPORT RECEIVED FROM PAUL CABRERA; PT APPEARS TO BE SLEEPING; NO S/S OF DISTRESS NOTED; CALL PASCAL IN REACH.
[2018-12-12 08:14] VITALS: BP 142/85
--- NOTE | 2018-12-12 08:41 | NUR ---
PT SITTING UP IN BED EATING BREAKFAST AND WATCHING TV; ASSESSMENT COMPLETED; 02@2L NC; TRIPLE LUMEN CENTRAL LINE, FLUSHED, NS INFUSING AT 100CC/HR; VITALS STABLE; AM MEDS ADMINISTERED, TOLERATED WELL; BSC, CALL PASCAL IN REACH; NO DISTRESS NOTED; VOICE NO CONCERNS; WILL CONTINUE TO MONITOR.
--- NOTE | 2018-12-12 12:01 | NUR ---
PT SITTING UP IN BED EATING LUNCH; ZOSYN INFUSING WITHOUT DIFFICULTY; 02@2L NC; BSC & CALL PASCAL IN REACH; PT VOICE NO CONCERNS; WILL CONTINUE TO MONITOR.
--- NOTE | 2018-12-12 13:20 | NUR ---
DR HIGGINS AT BEDSIDE TO DISCUSS POC;
--- NOTE | 2018-12-12 14:37 | NUR ---
PT AMBULATING IN HER ROOM WITH PHYSICAL THERAPY; NO S/S OF DISTRESS NOTED;
[2018-12-12] MEDS ORDERED: PREDNISONE10 MG PO (14:47)
[2018-12-12] MEDS ORDERED: LEVAQUIN500 MG PO (14:48)
[2018-12-12] MEDS ORDERED: LASIX20 MG PO (14:49)
[2018-12-12] MEDS ORDERED: SONATA5 MG PO (14:49)
--- NOTE | 2018-12-12 14:50 | NUR ---
PT WAS SEEN FOR WALKER PRESCRIPTION. SHE TELLS ME THAT THE WALKER SHE HAS AT HOME WAS TOO BIG FOR HER. SHE HAS WEAKNESS ON B LE, L WEAKER THAN R WITH NUMBNESS ON B FEET DUE TO DIABETIC NEUROPATHY. SHE REPORTS THAT SHE HAS HAD MULTIPLE FALLS AT HOME BECAUSE OF THIS. ASSESSMENT OF BALANCE SHOWED MILD IMPAIRMENT WITH ABILITY TO REGAIN BALANCE THROUGH STEPPING STRATEGY. STANDING TOLERANCE = >1 MIN. GAIT ASSESSMENT SHOWED INCORRECT WAY OF UTILIZING A WALKER SHE TENDS TO PUSH THE WALKER WHILE SHE STAYS BEHIND IT. THIS WAS CORRECTED, PT WAS ABLE TO DEMONSTRATE CORRECTLY. PROPER FITTING WALKER WAS LEFT IN THE ROOM FOR DME REFERENCE.
[2018-12-12 16:00] VITALS: BP 112/71
--- NOTE | 2018-12-12 17:32 | NUR ---
PT SITTING UP IN RECLINER; 02@2L; D/C INSTRUCTIONS GIVEN TO PT ALONG WITH HOME MEDS AND NEW PRESCRIPTIONS; PT VERBALIZED UNDERSTANDING; PT WANTS TO EAT SUPPER BEFORE SHE GOES. TOLD HER TO PUSH RED BUTTON FINANCE LECTURER PASCAL WHEN RIDE GETS HERE.
--- NOTE | 2018-12-12 19:06 | NUR ---
R SUBCLAVIAN CENTRAL LINE D/C'D FOR DISCHARGE HOME. SUTURES REMOVED. 20 CM 7FR LINE REMOVED. PRESSURE HELD FOR 5 MINUTES PER PROTOCOL. GAUZE/TRANSPARENT DRESSING APPLIED.
--- NOTE | 2018-12-12 19:08 | NUR ---
Discharge instructions given. Patient verbalizes understanding of same. Discharged in stable condition via Wheelchair to Home with family. All belongings sent with pt, along with 02
== END 2018-12-12 19:08 | disposition home health service (06) | DRG 871 ==
LOC: ED 11:01 → ED-I 12:50 → ED 14:16 → ICU 14:17 → MS2 12-11 15:42
PROVIDERS: Emergency Medicine; Internal Medicine Nephrology; ADMIT Internal Medicine; ATTEND Internal Medicine
PROC: 5A09357 Assistance with Respiratory Ventilation, Less than 24 Consecutive Hours, Continuous Positive Airway Pressure (ICD-10-PCS; principal; 2018-12-07)
PROC: 02HV33Z Insertion of Infusion Device into Superior Vena Cava, Percutaneous Approach (ICD-10-PCS; 2018-12-07)
DX: A41.9 Sepsis, unspecified organism (principal); J96.22 Acute and chronic respiratory failure with hypercapnia; J96.21 Acute and chronic respiratory failure with hypoxia; R65.21 Severe sepsis with septic shock; J18.8 Other pneumonia, unspecified organism; J43.9 Emphysema, unspecified; I95.89 Other hypotension; I10 Essential (primary) hypertension; E11.9 Type 2 diabetes mellitus without complications; G89.4 Chronic pain syndrome; F31.9 Bipolar disorder, unspecified; F03.90 Unspecified dementia, unspecified severity, without behavioral disturbance, psychotic disturbance, mood disturbance, and anxiety; F41.9 Anxiety disorder, unspecified; F17.200 Nicotine dependence, unspecified, uncomplicated; Z87.01 Personal history of pneumonia (recurrent); Z99.81 Dependence on supplemental oxygen; Z79.4 Long term (current) use of insulin; Z22.322 Carrier or suspected carrier of Methicillin resistant Staphylococcus aureus

== ENCOUNTER 2018-12-24 09:53 | Emergency (ER) | payer MEDICARE, OTHER ==
[~2018-12-24] VITALS: Ht 154.9 cm; Wt 78.0 kg
[~2018-12-24 09:53] MED LIST changes: +ARIPIPRAZOLE5 MG PO; +BACLOFEN10 MG PO; +BENZTROPINE0.5 MG PO; +EFFEXOR XR150 MG PO; +LASIX20 MG PO; +LEVAQUIN500 MG PO; +LYRICA25 MG PO; +MOTRIN800 MG PO; +PERCOCET1 TA4 PO; +POM PO; +RISPERDAL1 M1 PO; +SINGULAIR10 MG PO; +SONATA5 MG PO; +TRAZODONE300 MG PO; +ZANTAC150 M1 PO; +[UNRECOGNIZED DRUG - OTHER] OU
[2018-12-24 10:53] LABS: ANION GAP 17 (6-22 (CALC)); BUN 17 mg/dL (7-17); BUN/CREATININE RATIO 35 (12-20 (CALC)); CHLORIDE 104 mmol/l (95-108); CREATININE 0.5 mg/dL (0.5-1.0); GFR > 60 ML/MIN (>=60 (CALC)); GFR FOR AFR.AMER. > 60 ML/MIN (>=60 (CALC)); POTASSIUM 3.8 mmol/l (3.5-5.1); SODIUM 143 mmol/l (137-146)
[2018-12-24 10:58] LABS: CARBON DIOXIDE 26 mmol/l (22-30)
[2018-12-24 11:45] LABS: MEAN CELL VOLUME 100.5 fL CALC (80.0-100.0); MEAN CORPUSCULAR HGB 31.6 pG CALC (26.0-32.0); MEAN CORPUSCULAR HGB CONC 31.4 g/L CALC (32.0-36.0); NEUT# 10.44 thou/uL (2.00-7.15); RED BLOOD COUNT 4.02 mill/uL (4.20-5.60)
[2018-12-24 11:47] LABS: HEMATOCRIT 40.4 % (37.0-47.0); HEMOGLOBIN 12.7 g/dl (12.0-16.0); IMMATURE GRANULOCYTES 4.8 % (0.0-5.0)
[2018-12-24 15:01] VITALS: BP 121/71
== END 2018-12-24 16:11 | disposition home or self-care (01) ==
LOC: ED 09:53
PROVIDERS: Family Medicine
DX: I20.9 Angina pectoris, unspecified (principal); I10 Essential (primary) hypertension; J44.9 Chronic obstructive pulmonary disease, unspecified; E11.9 Type 2 diabetes mellitus without complications; Z79.4 Long term (current) use of insulin

== ENCOUNTER 2019-01-01 12:10 | Observation (INO) | payer MEDICARE, OTHER ==
[~2019-01-01] VITALS: Ht 154.9 cm; Wt 78.5 kg
--- NOTE | 2019-01-01 12:13 | NUR ---
PT DIRECTLY TO ROOM 12 VIA WHEELCHAIR, PT CONVERSTATIONALLY DYSPNIC. MD AWARE OF PT STATUS.
[2019-01-01 13:02] LABS: HEMATOCRIT 40.3 % (37.0-47.0); HEMOGLOBIN 12.6 g/dl (12.0-16.0); IMMATURE GRANULOCYTES 1.3 % (0.0-5.0); MEAN CORPUSCULAR HGB 31.9 pG CALC (26.0-32.0); MEAN CORPUSCULAR HGB CONC 31.3 g/L CALC (32.0-36.0); NEUT# 6.92 thou/uL (2.00-7.15); RED BLOOD COUNT 3.95 mill/uL (4.20-5.60); RED CELL DISTRI WIDTH 16.3 % (11.5-15.5)
[2019-01-01 13:21] LABS: ALKALINE PHOSPHATASE 132 u/l (38-126); BUN 8 mg/dL (7-17); BUN/CREATININE RATIO 19 (12-20 (CALC)); CHLORIDE 100 mmol/l (95-108); CREATININE 0.4 mg/dL (0.5-1.0); GFR > 60 ML/MIN (>=60 (CALC)); GFR FOR AFR.AMER. > 60 ML/MIN (>=60 (CALC)); POTASSIUM 3.5 mmol/l (3.5-5.1); SGOT/AST 15 u/l (14-36); SODIUM 142 mmol/l (137-146)
[2019-01-01 13:22] LABS: ALBUMIN 3.9 g/dL (3.2-5.0); ANION GAP 13 (6-22 (CALC)); BILIRUBIN, TOTAL 0.7 mg/dL (0.0-1.4); CARBON DIOXIDE 33 mmol/l (22-30)
--- NOTE | 2019-01-01 13:59 | NUR ---
PT PROVIDED MEDS ORDERED, NO ACUTE RESPIRATORY DISTRESS NOTED. MAGNESIUM INFUSING AT THIS TIME.
[2019-01-01] MEDS ORDERED: PREDNISONE10 MG PO (14:08)
--- NOTE | 2019-01-01 14:28 | NUR ---
EDP SPEAKS WITH PT REGARDING ADMISSION, WHICH WAS AGREED UPON. ABG DRAWN BY RT.
--- NOTE | 2019-01-01 15:55 | NUR ---
REPORT TO TAMMY, TO ROOM SOON.
[2019-01-01 16:03] VITALS: BP 111/80
--- NOTE | 2019-01-01 16:36 | NUR ---
PT ARRIVED TO FLOOR @1600 VIA STRETCHER IN STABLE CONDITION, ACCOMPANIED BY ARNIE RN; PT AMBULATED TO STANDING DIGITAL SCALE; WT AND VITALS OBTAINED; 02@3L NC; MARSA SWAB OBTAINED, LT NARE; SKIN INTACT; RT SIDE OF FACE APPEARS SWOLLEN; PT'S AWARE OF SWOLLEN FACIAL CHEEK BUT NOT SURE WHEN AND HOW IT HAPPENED; C/O OF NO PAIN OR DISCOMFORT AT THIS TIME; STATES SHE HAS A PRODUCTIVE COUGH AND BEEN SPITTING UP SM AMT OF GREENISH SPUTUM; NO COUGH NOTED SINCE SHE GOT HERE; ORIENT TO ROOM AND CALL PASCAL SYSTEM.
--- NOTE | 2019-01-01 17:35 | NUR ---
PT SITTING UP IN BED EATING SUPPER; 02@3L NC; RESP LABORED; VOICE NO CONCERNS; CALL PASCAL IN REACH.
[2019-01-01 17:37] LABS: URINE BILIRUBIN - DIPSTICK NEGATIVE (NEGATIVE); URINE BLOOD DIPSTICK NEGATIVE (NEGATIVE); URINE COLOR YELLOW; URINE GLUCOSE - DIPSTICK >=1000 mg/dL (NEGATIVE); URINE KETONE 15 mg/dL (NEGATIVE); URINE LEUK ESTERASE NEGATIVE (NEGATIVE); URINE NITRITE - DIPSTICK NEGATIVE (Negative); URINE PROTEIN - DIPSTICK NEGATIVE (NEG-TRACE); URINE UROBILINOGEN - DIPSTICK 0.2 E.U./dL (0.2)
[2019-01-01 19:37] VITALS: BP 117/78
--- NOTE | 2019-01-01 20:10 | NUR ---
WENT IN TO SPEAK WITH PT. HER DAUGHTER CALLED AND REPORTED THAT SHE CALLED HER SAYING THE HOSPITAL WAS NOT DOING ANYTHING FOR HER AND THAT SHE WILL GO HOME IF WE ARE NOT GOING TO DO ANYTHING. WENT IN AND SPOKE WITH PT. IN REGARDS TO HER CONCERNS. PT. REPORTS SHE SHOUD BE GETTING ANTIBIOTICS AND IF SHE IS NOT GOING TO GET ANY THEN WHY IS SHE HERE. PT. REQUESTS THAT THIS SHELL TRIM TOOL SETTER SPEAK WITH MD IRRIGATION SUPERVISOR TO ASK IF SHE NEEDS ANTIBIOTICS. PT. IS EDUCATED ON SOLU-MEDROL AND DUONEBS THAT SHE IS RECEIVING FOR HER LUNGS WELL TREATMENT FOR ELEVATED BS. PT. VERBALIZES UNDERSTANDING. WILL CALL MD PER HER REQUEST TO ASK IN REGARDS TO ANTIBIOTICS.
--- NOTE | 2019-01-01 20:15 | NUR ---
SPOKE WITH DR. ALCANTARA AND NOTIFIED HIM OF PREVIOUS NOTE WELL CT RESULTS. PER MD NO ANTIBIOTICS AT THIS TIME. ORDERS RECEIVED TO INCREASE SLIDING SCALE AND LEVEMIR R/T ELEVATED BLOOD SUGARS. WILL CARRY THESE OUT.
--- NOTE | 2019-01-01 20:20 | NUR ---
NOTIFIED PT. OF UPDATE IN POC AND PT. IS IN AGREEMENT WITH TREATMENT. PT. IS EDUCATED ON DIABETIC DIET WELL SIDE EFFECTS OF INSULIN ELEVATING BS WELL. PT. WILL CONTINUOUSLY CALL FOR MORE SUGAR PACKETS FOR HER SWEET TEA AND SNACKS. PT. VERBALIZES SHE WILL CALL HER DAUGHTER AND UPDATE HER THERE IS NO NEED FOR STAFF MEMBER TO CALL HER BACK.
--- NOTE | 2019-01-01 21:10 | NUR ---
UPDATED MD ON BS FOR PM BEING 430 AND OF ORDERED INSULINS TO BE GIVEN. NO NEW ORDERS RECEIVED.
--- NOTE | 2019-01-01 21:29 | NUR ---
SCHED. MEDS GIVEN. NO DISTRESS NOTED; EDUCATED AGAIN ON DIABETIC DIET. CALL LIGHT IS IN REACH.
--- NOTE | 2019-01-01 23:12 | NUR ---
PT. SITTING UP IN BED; SCHED MEDS GIVEN. PT. AGAIN ASKING FOR MORE FOOD; EDUCATED AGAIN ON DIET AND ALSO PROVIDED WITH SALTINE CRACKERS. DENIES FURTHER NEEDS. CALL LIGHT IS IN REACH.
--- NOTE | 2019-01-02 01:58 | NUR ---
PT. RESTING IN BED ON RIGHT SIDE WITH EYES CLOSED; RESP. EVEN AND UNLABORED. NO DISTRESS NOTED. CALL LIGHT IS IN REACH; WILL CONTINUE TO MONITOR.
[2019-01-02 02:50] VITALS: BP 116/78
--- NOTE | 2019-01-02 02:50 | NUR ---
PT. C/O SEVERE CRAIG AND MEDICATED WITH ORDERED PERCOCET; WILL REASSESS. VSS. NO DISTRESS NOTED. BSC EMPTIED. CALL LIGHT IS IN REACH.
--- NOTE | 2019-01-02 05:19 | NUR ---
SCHED MED GIVEN. DENIES NEEDS. CALL LIGHT IS IN REACH.
--- NOTE | 2019-01-02 06:45 | NUR ---
REPORT RECEIVED FROM PAUL SANCHEZ; PT LAYING IN BED ON RT SIDE; RESP EVEN AND UNLABORED ON 02@3L; CALL APSCAL IN REACH.
[2019-01-02 07:16] VITALS: BP 102/70
--- NOTE | 2019-01-02 07:23 | NUR ---
PT APPEARS TO BE SLEEPING BUT EASILY AWAKENS; VITALS OBTAINED; #20G LFA, FLUSHED WELL, SITE APPEARS HEALTHY; ACCU CHECK (362) MEDICATED PER EMAR; C/O OF NO PAIN; EMPTIED 300CC CLEAR, YELLOW URINE FROM BSC; CALL PASCAL IN REACH; SAFETY PRECAUTION REINFORCE;
--- NOTE | 2019-01-02 11:44 | NUR ---
PT SITTING UP IN BED EATING LUNCH; RESP EVEN AND UNLABORED, 02@3L NC; C/O OF HEADACHE 12/23, MEDICATED PER EMAR; VOICE NO OTHER CONCERNS.
--- NOTE | 2019-01-02 11:47 | NUR ---
DR HIGGINS AT BEDSIDE TO DISCUSS POC
--- NOTE | 2019-01-02 14:09 | NUR ---
PT SITTING UP IN BED, AWAKE; LUNCH TRAY PICKED UP, ATE 100% OF MEAL; IV INTACT, S/LOCKED; CALL PASCAL IN REACH; VOICE NO CONCERNS.
--- NOTE | 2019-01-02 15:18 | NUR ---
PT SITTING UP IN BED WATCHING TV; [address]; PHYSICAL SCIENCE TEACHER OFFER PT A BATH, PT STATED "I'M OK FOR TODAY" REQ A DIET COKE (PROVIDED) EMPTIED 1000CC, CLEAR, YELLOW URINE FROM BSC; PT ASKED IF SHE CAN BE DISCHARGE TODAY; MD SAYS NO, D/C WILL BE TOMORROW; PT AGREED; CALL PASCAL IN REACH; VOICE NO OTHER CONCERNS; LOG TURNER AT BED SIDE TO OBTAIN VITALS.
[2019-01-02 16:00] VITALS: BP 111/67
--- NOTE | 2019-01-02 17:23 | NUR ---
PT SITTING UP IN BED; ACCU CHECK (447) AWARE; MEDICATED PER EMAR;
--- NOTE | 2019-01-02 17:53 | NUR ---
EATING SUPPER IN BED WITH HOB ELEVATED; VOICE NO CONCERNS; CALL PASCAL IN REACH.
--- NOTE | 2019-01-02 19:06 | NUR ---
REPORT FROM TAMMY BURDICK. PT SITTING UP IN BED. ALERT AND ORIENTED. FACE APPEARS PUFFY. NO RESPIRATORY DISTRESS NOTED. O2 AT 3L/M VIA NC. DISCUSSED POC. PT VERBALIZED UNDERSTANDING. REMAINS ON CONTACT PRECAUTIONS FOR HX OF MRSA, NASAL SWAB PENDING. IV SITE APPEARS HEALTHY. CALL LIGHT WITHIN REACH. WILL CONTINUE TO MONITOR.
--- NOTE | 2019-01-02 19:20 | NUR ---
PT CALLED LABORER STORES TO ROOM STATING SHE NEEDED TO BE DISCHARGED. EDUCATED PT AT THIS TIME, EXPLAINED NO PENDING DISCHAGE AT THIS TIME. PT WISHED TO LEAVE AMA DUE TO PROBLEMS AT HER HOUSE THAT NEEDED TENDING TO. PT SIGNED AMA PAPER. NOTIFIED MINING PLANT OPERATOR PHYSICIAN AND FLIGHT SOFTWARE TEST ENGINEER. IV SITE REMOVED AND PT ESCORTED DOWN STAIR WITH OWN PORTABLE OXYGEN TANK VIA WHEELCHAIR BY [facility] STAFF.
== END 2019-01-02 19:27 | disposition left against medical advice (07) ==
LOC: ED 12:10 → ED-I 14:23 → ED 15:26 → MS2 15:27
PROVIDERS: Emergency Medicine; ADMIT Internal Medicine Nephrology; ATTEND Internal Medicine Nephrology
DX: J43.9 Emphysema, unspecified (principal); J18.9 Pneumonia, unspecified organism; I11.0 Hypertensive heart disease with heart failure; I50.9 Heart failure, unspecified; E11.9 Type 2 diabetes mellitus without complications; G89.4 Chronic pain syndrome; F31.9 Bipolar disorder, unspecified; M51.9 Unspecified thoracic, thoracolumbar and lumbosacral intervertebral disc disorder; F03.90 Unspecified dementia, unspecified severity, without behavioral disturbance, psychotic disturbance, mood disturbance, and anxiety; F17.290 Nicotine dependence, other tobacco product, uncomplicated; Z99.81 Dependence on supplemental oxygen; Z87.01 Personal history of pneumonia (recurrent); Z79.4 Long term (current) use of insulin
CPT/HCPCS: J3475

== ENCOUNTER 2019-01-13 15:45 | Inpatient (IN) | payer MEDICARE, OTHER ==
[2019-01-13] VITALS (8 sets, daily range): BP systolic 96–119; BP diastolic 59–83
[~2019-01-13] VITALS: Ht 154.9 cm; Wt 70.0 kg
[2019-01-13 16:04] LABS: HEMATOCRIT 42.4 % (37.0-47.0); HEMOGLOBIN 13.3 g/dl (12.0-16.0); IMMATURE GRANULOCYTES 1.7 % (0.0-5.0); MEAN CELL VOLUME 101.9 fL CALC (80.0-100.0); MEAN CORPUSCULAR HGB CONC 31.4 g/L CALC (32.0-36.0); NEUT# 17.45 thou/uL (2.00-7.15); RED BLOOD COUNT 4.16 mill/uL (4.20-5.60); RED CELL DISTRI WIDTH 16.8 % (11.5-15.5)
[2019-01-13 16:22] LABS: ALBUMIN 3.7 g/dL (3.2-5.0); ALKALINE PHOSPHATASE 179 u/l (38-126); ANION GAP 10 (6-22 (CALC)); BILIRUBIN, TOTAL 0.5 mg/dL (0.0-1.4); BUN 3 mg/dL (7-17); BUN/CREATININE RATIO 9 (12-20 (CALC)); CARBON DIOXIDE 39 mmol/l (22-30); CHLORIDE 96 mmol/l (95-108); CREATININE 0.4 mg/dL (0.5-1.0); GFR > 60 ML/MIN (>=60 (CALC)); GFR FOR AFR.AMER. > 60 ML/MIN (>=60 (CALC)); POTASSIUM 2.9 mmol/l (3.5-5.1); SGOT/AST 14 u/l (14-36); SODIUM 142 mmol/l (137-146); TOTAL PROTEIN 6.8 g/dL (6.3-8.2)
[2019-01-13 16:35] LABS: MYOGLOBIN 12 ng/mL (0 - 62)
[2019-01-13 18:58] LABS: URINE BILIRUBIN - DIPSTICK NEGATIVE (NEGATIVE); URINE BLOOD DIPSTICK NEGATIVE (NEGATIVE); URINE COLOR YELLOW; URINE GLUCOSE - DIPSTICK >=1000 mg/dL (NEGATIVE); URINE KETONE TRACE mg/dL (NEGATIVE); URINE LEUK ESTERASE NEGATIVE (NEGATIVE); URINE NITRITE - DIPSTICK NEGATIVE (Negative); URINE PROTEIN - DIPSTICK TRACE mg/dL (NEG-TRACE); URINE SPECIFIC GRAVITY 1.025; URINE UROBILINOGEN - DIPSTICK 0.2 E.U./dL (0.2)
[2019-01-13 19:01] LABS: BARBITURATES POSITIVE (NEGATIVE); COCAINE NEGATIVE (NEGATIVE); METHADONE NEGATIVE (NEGATIVE); OXCYCODONE POSITIVE (NEGATIVE); TETRAHYDROCANNABIONOL NEGATIVE (NEGATIVE); TRICYLIC ANTIDEPRESSANTS NEGATIVE (NEGATIVE)
[2019-01-14] VITALS (21 sets, daily range): BP systolic 83–147; BP diastolic 52–93
[2019-01-14 05:34] LABS: HEMATOCRIT 36.8 % (37.0-47.0); IMMATURE GRANULOCYTES 2.1 % (0.0-5.0); MEAN CELL VOLUME 103.7 fL CALC (80.0-100.0); MEAN CORPUSCULAR HGB 31.8 pG CALC (26.0-32.0); MEAN CORPUSCULAR HGB CONC 30.7 g/L CALC (32.0-36.0); NEUT# 8.12 thou/uL (2.00-7.15); RED BLOOD COUNT 3.55 mill/uL (4.20-5.60); RED CELL DISTRI WIDTH 16.6 % (11.5-15.5)
[2019-01-14 05:36] LABS: HEMOGLOBIN 11.3 g/dl (12.0-16.0)
[2019-01-14 05:58] LABS: ALKALINE PHOSPHATASE 139 u/l (38-126); BILIRUBIN, TOTAL 0.3 mg/dL (0.0-1.4); BUN 9 mg/dL (7-17); BUN/CREATININE RATIO 23 (12-20 (CALC)); CHLORIDE 105 mmol/l (95-108); CREATININE 0.4 mg/dL (0.5-1.0); GFR > 60 ML/MIN (>=60 (CALC)); GFR FOR AFR.AMER. > 60 ML/MIN (>=60 (CALC)); MAGNESIUM 1.9 mg/dL (1.6-2.3); SGOT/AST 9 u/l (14-36); SODIUM 140 mmol/l (137-146)
[2019-01-14 06:22] LABS: ALBUMIN 2.9 g/dL (3.2-5.0); ANION GAP 9 (6-22 (CALC)); CARBON DIOXIDE 31 mmol/l (22-30); POTASSIUM 4.5 mmol/l (3.5-5.1); TOTAL PROTEIN 5.4 g/dL (6.3-8.2)
[2019-01-15] VITALS (24 sets, daily range): BP systolic 92–148; BP diastolic 61–99
[2019-01-15 05:40] LABS: HEMATOCRIT 34.5 % (37.0-47.0); HEMOGLOBIN 10.6 g/dl (12.0-16.0); IMMATURE GRANULOCYTES 1.4 % (0.0-5.0); MEAN CORPUSCULAR HGB 31.6 pG CALC (26.0-32.0); MEAN CORPUSCULAR HGB CONC 30.7 g/L CALC (32.0-36.0); NEUT# 12.15 thou/uL (2.00-7.15); RED BLOOD COUNT 3.35 mill/uL (4.20-5.60); RED CELL DISTRI WIDTH 16.1 % (11.5-15.5)
[2019-01-15 06:02] LABS: ALBUMIN 2.8 g/dL (3.2-5.0); ALKALINE PHOSPHATASE 128 u/l (38-126); ANION GAP 10 (6-22 (CALC)); BILIRUBIN, TOTAL 0.2 mg/dL (0.0-1.4); BUN 12 mg/dL (7-17); BUN/CREATININE RATIO 29 (12-20 (CALC)); CARBON DIOXIDE 31 mmol/l (22-30); CHLORIDE 103 mmol/l (95-108); CREATININE 0.4 mg/dL (0.5-1.0); GFR > 60 ML/MIN (>=60 (CALC)); GFR FOR AFR.AMER. > 60 ML/MIN (>=60 (CALC)); MAGNESIUM 2.2 mg/dL (1.6-2.3); POTASSIUM 3.9 mmol/l (3.5-5.1); SGOT/AST 10 u/l (14-36); SODIUM 139 mmol/l (137-146); TOTAL PROTEIN 5.3 g/dL (6.3-8.2)
[2019-01-16] VITALS (12 sets, daily range): BP systolic 86–146; BP diastolic 53–87
[2019-01-16 05:15] LABS: HEMATOCRIT 32.6 % (37.0-47.0); HEMOGLOBIN 10.2 g/dl (12.0-16.0); IMMATURE GRANULOCYTES 1.8 % (0.0-5.0); MEAN CELL VOLUME 102.8 fL CALC (80.0-100.0); MEAN CORPUSCULAR HGB 32.2 pG CALC (26.0-32.0); MEAN CORPUSCULAR HGB CONC 31.3 g/L CALC (32.0-36.0); NEUT# 11.46 thou/uL (2.00-7.15); RED BLOOD COUNT 3.17 mill/uL (4.20-5.60); RED CELL DISTRI WIDTH 16.1 % (11.5-15.5)
[2019-01-16 05:48] LABS: ALBUMIN 2.8 g/dL (3.2-5.0); ALKALINE PHOSPHATASE 132 u/l (38-126); ANION GAP 9 (6-22 (CALC)); BILIRUBIN, TOTAL 0.2 mg/dL (0.0-1.4); BUN 13 mg/dL (7-17); BUN/CREATININE RATIO 25 (12-20 (CALC)); CARBON DIOXIDE 31 mmol/l (22-30); CHLORIDE 102 mmol/l (95-108); CREATININE 0.5 mg/dL (0.5-1.0); GFR > 60 ML/MIN (>=60 (CALC)); GFR FOR AFR.AMER. > 60 ML/MIN (>=60 (CALC)); MAGNESIUM 2.3 mg/dL (1.6-2.3); POTASSIUM 4.1 mmol/l (3.5-5.1); SGOT/AST 11 u/l (14-36); SODIUM 138 mmol/l (137-146); TOTAL PROTEIN 5.2 g/dL (6.3-8.2)
== END 2019-01-16 11:45 | disposition left against medical advice (07) | DRG 193 ==
LOC: ED 15:45 → ED-I 17:13 → ED 17:22 → ICU 17:23
PROVIDERS: Emergency Medicine; ADMIT Internal Medicine Nephrology; ATTEND Internal Medicine Nephrology
PROC: 5A09357 Assistance with Respiratory Ventilation, Less than 24 Consecutive Hours, Continuous Positive Airway Pressure (ICD-10-PCS; principal; 2019-01-13)
DX: J18.9 Pneumonia, unspecified organism (principal); J96.22 Acute and chronic respiratory failure with hypercapnia; J96.21 Acute and chronic respiratory failure with hypoxia; J44.1 Chronic obstructive pulmonary disease with (acute) exacerbation; J44.0 Chronic obstructive pulmonary disease with (acute) lower respiratory infection; I11.0 Hypertensive heart disease with heart failure; I50.9 Heart failure, unspecified; E11.9 Type 2 diabetes mellitus without complications; E87.6 Hypokalemia; M51.9 Unspecified thoracic, thoracolumbar and lumbosacral intervertebral disc disorder; G89.4 Chronic pain syndrome; F31.9 Bipolar disorder, unspecified; F03.90 Unspecified dementia, unspecified severity, without behavioral disturbance, psychotic disturbance, mood disturbance, and anxiety; Z91.19 Patient's noncompliance with other medical treatment and regimen; Z79.4 Long term (current) use of insulin; Z86.14 Personal history of Methicillin resistant Staphylococcus aureus infection; Z87.891 Personal history of nicotine dependence
CPT/HCPCS: J1650

== ENCOUNTER 2019-01-19 22:16 | Emergency (ER) | payer MEDICARE, OTHER ==
[~2019-01-19] VITALS: Ht 154.9 cm; Wt 110.0 kg
[2019-01-20 04:00] VITALS: BP 100/52
== END 2019-01-20 04:00 | disposition home or self-care (01) ==
LOC: ED 22:16
DX: S16.1XXA Strain of muscle, fascia and tendon at neck level, initial encounter (principal); S39.012A Strain of muscle, fascia and tendon of lower back, initial encounter; S70.02XA Contusion of left hip, initial encounter; S70.01XA Contusion of right hip, initial encounter; R07.89 Other chest pain; I50.9 Heart failure, unspecified; E11.9 Type 2 diabetes mellitus without complications; J43.9 Emphysema, unspecified; W06.XXXA Fall from bed, initial encounter; Y92.003 Bedroom of unspecified non-institutional (private) residence as the place of occurrence of the external cause; Z79.4 Long term (current) use of insulin

== ENCOUNTER 2019-01-22 16:39 | Emergency (ER) | payer MEDICARE, OTHER ==
[~2019-01-22] VITALS: Ht 154.9 cm; Wt 78.8 kg
[2019-01-22 17:55] LABS: HEMATOCRIT 34.5 % (37.0-47.0); HEMOGLOBIN 10.6 g/dl (12.0-16.0); MEAN CELL VOLUME 103.9 fL CALC (80.0-100.0); MEAN CORPUSCULAR HGB 31.9 pG CALC (26.0-32.0); MEAN CORPUSCULAR HGB CONC 30.7 g/L CALC (32.0-36.0); NEUT# 11.91 thou/uL (2.00-7.15); RED BLOOD COUNT 3.32 mill/uL (4.20-5.60); RED CELL DISTRI WIDTH 16.1 % (11.5-15.5)
[2019-01-22 18:15] LABS: INTERNATIONAL NORMALIZED RATIO 0.9 RATIO (0.7-1.3); PROTHROMBIN TIME 9.3 SECONDS (9.0-12.5)
[2019-01-22 18:16] LABS: ALBUMIN 3.3 g/dL (3.2-5.0); ALKALINE PHOSPHATASE 124 u/l (38-126); ANION GAP 10 (6-22 (CALC)); BILIRUBIN, TOTAL 0.5 mg/dL (0.0-1.4); BUN 11 mg/dL (7-17); BUN/CREATININE RATIO 28 (12-20 (CALC)); CARBON DIOXIDE 34 mmol/l (22-30); CHLORIDE 100 mmol/l (95-108); CPK 200 u/l (30-165); CREATININE 0.4 mg/dL (0.5-1.0); ETHYL ALCOHOL 0 mg/dl (0-30); GFR > 60 ML/MIN (>=60 (CALC)); GFR FOR AFR.AMER. > 60 ML/MIN (>=60 (CALC)); POTASSIUM 3.5 mmol/l (3.5-5.1); SGOT/AST 16 u/l (14-36); SODIUM 140 mmol/l (137-146)
[2019-01-22 20:20] VITALS: BP 114/72
== END 2019-01-22 20:20 | disposition short-term general hospital (02) ==
LOC: ED 16:39
PROVIDERS: Family Medicine
PROC: 2W3QX1Z Immobilization of Right Lower Leg using Splint (ICD-10-PCS; principal; 2019-01-22)
DX: S82.851A Displaced trimalleolar fracture of right lower leg, initial encounter for closed fracture (principal); E11.628 Type 2 diabetes mellitus with other skin complications; L08.9 Local infection of the skin and subcutaneous tissue, unspecified; I50.9 Heart failure, unspecified; J43.9 Emphysema, unspecified; F17.200 Nicotine dependence, unspecified, uncomplicated; W19.XXXA Unspecified fall, initial encounter; Z79.4 Long term (current) use of insulin

== ENCOUNTER 2019-03-02 17:55 | Inpatient (IN) | payer MEDICARE, OTHER ==
[~2019-03-02] VITALS: Ht 154.9 cm; Wt 84.5 kg
--- NOTE | 2019-03-02 17:55 | NUR ---
PATIENT ARRIVAL TO ED VIA EMS. PATIENT SITTING IN TRIPOD POSITION- VERY DYSPNIC WITH RATE AT ABOUT 30 BREATHS PER MIN. PATIENT PLACED ON BIPAP. EKG PERFORMED. IV SITE OBTAINED. LABS COLLECTED. PATIENT ATTEMPTED TO ANSWER QUESTIONS TO BEST OF ABILITY R/T SOB
--- NOTE | 2019-03-02 17:55 | NUR ---
PT ARRIVES SEVERLY SOB AND DYSPNEIC WITH EMS
[2019-03-02 18:19] LABS: MEAN CELL VOLUME 102.4 fL CALC (80.0-100.0); MEAN CORPUSCULAR HGB 30.7 pG CALC (26.0-32.0); NEUT# 10.85 thou/uL (2.00-7.15); RED BLOOD COUNT 4.1 mill/uL (4.20-5.60); RED CELL DISTRI WIDTH 14.9 % (11.5-15.5)
--- NOTE | 2019-03-02 18:20 | NUR ---
PT ARRIVED BY EMS. RESPIRATORY DISTRESS. SPO2 92% ON 5LNC. PT GIVEN 3 DUONED TX AND PLACED ON BIPAP PER DR. ASHLEY 06/20/40%. ABG ORDERED FOR 1899
[2019-03-02 18:21] LABS: HEMOGLOBIN 12.6 g/dl (12.0-16.0)
[2019-03-02 18:31] LABS: ANION GAP 14 (6-22 (CALC)); BUN 7 mg/dL (7-17); BUN/CREATININE RATIO 16 (12-20 (CALC)); CARBON DIOXIDE 35 mmol/l (22-30); CHLORIDE 101 mmol/l (95-108); CREATININE 0.5 mg/dL (0.5-1.0); GFR > 60 ML/MIN (>=60 (CALC)); GFR FOR AFR.AMER. > 60 ML/MIN (>=60 (CALC)); POTASSIUM 3.6 mmol/l (3.5-5.1); SODIUM 146 mmol/l (137-146)
--- NOTE | 2019-03-02 18:35 | NUR ---
DR ASHLEY AT BEDSIDE TO PERFORM CENTRAL LINE INSERTION. PATIENT UNABLE TO LIE FLAT FOR IJ INSERTION- PATIENT HAD FEMORAL LINE PLACED. VERISITE WAS SIGNED. STERILE PROCEDURE FOLLOWED. PATIENT TOLERATED WELL. PLACEMENT CONFIRMED WITH XRAY.
--- NOTE | 2019-03-02 18:50 | NUR ---
PT RESTING IN STRETCHER WITH HOB ELEVATED. PT REMAINS ON BIPAP AND SAO2 97% AT THIS TIME. PT APPEARS TIRED AND AWAKENS TO VERBAL STIMULI. UNABLE TO RECONCILE MEDICATIONS AT THIS TIME.
[2019-03-02 19:01] LABS: INTERNATIONAL NORMALIZED RATIO 0.9 RATIO (0.7-1.3); PROTHROMBIN TIME 9.4 SECONDS (9.0-12.5)
--- NOTE | 2019-03-02 19:10 | NUR ---
REPORT PASSED ON TO GILMA Segura RN. SEPSIS WORKUP SHEET DISCUSSED AND IN ROOM. NO QUESTIONS AT THIS TIME. UNDERSTANDS VANCO START TIME IS PENDING PLACEMENT OF CENTRAL LINE R/T VESICANT
--- NOTE | 2019-03-02 19:18 | NUR ---
RECEIVED BEDSIDE REPORT FROM PAUL HERRERA.
--- NOTE | 2019-03-02 20:00 | NUR ---
XRAY SHOWS CENTRAL LINE IN GOOD POSITION. VANCOMYCIN UP
--- NOTE | 2019-03-02 20:29 | NUR ---
REPORT TO GENNARO MENENDEZ
--- NOTE | 2019-03-02 20:35 | NUR ---
Admission Note Report Given to: GENNARO MENENDEZ Transported by: Wheelchair X Stretcher Transported with: X Nurse Transporter X Patent IV X O2 Office Inspector PT TRANSPORTED WITH BIPAP
--- NOTE | 2019-03-02 20:40 | NUR ---
54 yr old VERY unkept female adm icu5 per stretcher from er. smells of urine, arm pit odor & stale cigarettes. transferred to bed x4 assists to bed. bed weight obtained. pt drowsy. bipap cont. no resp diff. hospital monitor shows sinus rhythm. #22 rt hand saline lock. rt groin tlc in place. ns infusing @ 20cchr, vanco infusing. history obtained per old record & er record. fall precautions initiated. has incision rt ankle (steristripped). photo taken. #16 farrell cath inserted with immediate urine return. spec sent to lab.
--- NOTE | 2019-03-02 20:50 | NUR ---
UPON MOVING PT TO ICU BED NOTED PT WAS INCONTINENT OF URINE.
[2019-03-02 21:00] VITALS: BP 119/74
[2019-03-02 21:15] VITALS: BP 130/85
[2019-03-02 21:30] VITALS: BP 115/60
[2019-03-02 21:45] VITALS: BP 99/59
[2019-03-02 21:57] LABS: URINE BILIRUBIN - DIPSTICK NEGATIVE (NEGATIVE); URINE BLOOD DIPSTICK NEGATIVE (NEGATIVE); URINE COLOR YELLOW; URINE GLUCOSE - DIPSTICK >=1000 mg/dL (NEGATIVE); URINE KETONE NEGATIVE (NEGATIVE); URINE LEUK ESTERASE NEGATIVE (NEGATIVE); URINE NITRITE - DIPSTICK NEGATIVE (Negative); URINE PH 5.5 (4.5-8.0); URINE PROTEIN - DIPSTICK TRACE mg/dL (NEG-TRACE); URINE SPECIFIC GRAVITY 1.025; URINE UROBILINOGEN - DIPSTICK 0.2 E.U./dL (0.2)
[2019-03-02 22:00] VITALS: BP 102/70
--- NOTE | 2019-03-02 22:00 | NUR ---
eyes closed. bipap cont. no resp distress.
[2019-03-02 22:02] LABS: COCAINE NEGATIVE (NEGATIVE); METHADONE NEGATIVE (NEGATIVE); TETRAHYDROCANNABIONOL NEGATIVE (NEGATIVE); TRICYLIC ANTIDEPRESSANTS NEGATIVE (NEGATIVE)
[2019-03-02 22:03] LABS: BARBITURATES NEGATIVE (NEGATIVE); OXCYCODONE NEGATIVE (NEGATIVE)
[2019-03-02 23:00] VITALS: BP 103/64
[2019-03-03] VITALS (18 sets, daily range): BP systolic 93–140; BP diastolic 61–84
--- NOTE | 2019-03-03 00:01 | NUR ---
eyes closed. no distress. property insurance claims examiner shows sinus rhythm hr 88.
--- NOTE | 2019-03-03 00:10 | NUR ---
blood drawn & sent to lab.
--- NOTE | 2019-03-03 02:00 | NUR ---
resting quietly. bipap cont. no apparent distress.
--- NOTE | 2019-03-03 04:00 | NUR ---
eyes closed. no distress. bipap cont.
--- NOTE | 2019-03-03 05:39 | NUR ---
blood drawn & sent to lab.
--- NOTE | 2019-03-03 07:00 | NUR ---
PT RESTING IN BED ON BIPAP. PT IS ALERT AND ORIENTED X3. SHIFT ASSESSMENT COMPLETED AT THIS TIME. PT ASSISTED TO BSC FOR BM. PT ASSISTED WITH AM CARE AT THIS TIME. LINENS CHANGED. PT ASSISTED BACK TO BED. PT SITTING UP ON SIDE OF BED. IV PATENT X2. CALL LIGHT IN REACH. WILL CONTINUE TO MONITOR.
--- NOTE | 2019-03-03 07:40 | NUR ---
PT SET UP FOR AM MEAL.
--- NOTE | 2019-03-03 09:05 | NUR ---
PT SITTING UP ON SIDE OF BED TALKING ON PHONE CALL LIGHT IN REACH. WILL CONTINUE TO MONITOR
--- NOTE | 2019-03-03 09:25 | NUR ---
DR JOVEL AT BEDSIDE AT THIS TIME TO DISCUSS PLAN OF CARE
--- NOTE | 2019-03-03 09:45 | NUR ---
PT ASSISTED TO BSC FOR BM. PT THEN ASSISTED BACK TO BED.
--- NOTE | 2019-03-03 10:01 | NUR ---
Vancomycin consult Age: 54 yo Serum creatinine: 0.8 mg/dL (for calc, 0.5 reported) Height: 61.0 Inches Weight (kg): 84.5 IBW (kg): 47.80 Dosing wt(kg): 84.5 Estimated Creatinine clearance (ml/min): 61.4 (rough estimate due to low creatinine clearance) Vd (liters): 59.1 (factor used: 0.7 L/kg) Brandyn (hr-1): 0.055 Half life (hrs): 12.60 Vancomycin 1000 mg q12hrs with an expected Cpeak of 33 mcg/ml and an expected Ctrough of 19 mcg/ml
--- NOTE | 2019-03-03 11:40 | NUR ---
PT SITTING UP IN BED WATCHING TV RESP ARE EVEN AND UNLABORED. PT ON O2 3L NC. CALL LIGHT IN REACH. WILL CONTINUE TO MONITOR.
--- NOTE | 2019-03-03 11:45 | NUR ---
PT SET UP FOR NOON MEAL
[2019-03-03] MEDS ORDERED: BENZTROPINE0.5 MG PO (12:54)
[2019-03-03] MEDS ORDERED: ZALEPLON5 MG PO (12:54)
[2019-03-03] MEDS ORDERED: PROTONIX40 M2 PO (12:55)
[2019-03-03] MEDS ORDERED: BACLOFEN10 MG PO (12:55)
[2019-03-03] MEDS ORDERED: RISPERDAL1 M1 PO (12:56)
[2019-03-03] MEDS ORDERED: LYRICA25 MG PO (12:56)
[2019-03-03] MEDS ORDERED: DALIRESP500 MCG PO (12:56)
[2019-03-03] MEDS ORDERED: PROZAC40 MG PO (12:57)
[2019-03-03] MEDS ORDERED: TRAZODONE300 MG PO (12:57)
[2019-03-03] MEDS ORDERED: TOPAMAX50 M1 PO (12:58)
[2019-03-03] MEDS ORDERED: ARIPIPRAZOLE5 MG PO (12:58)
[2019-03-03] MEDS ORDERED: ZANTAC150 M1 PO (12:58)
[2019-03-03] MEDS ORDERED: VENLAFAXINE150 M1 PO (12:59)
[2019-03-03] MEDS ORDERED: SINGULAIR10 MG PO (12:59)
[2019-03-03] MEDS ORDERED: LEVEMIR100 UNIT/M SC (13:00)
[2019-03-03] MEDS ORDERED: [UNRECOGNIZED DRUG - OTHER] OU (13:00)
[2019-03-03] MEDS ORDERED: FLONASE AL50 MCG/ACT (13:01)
[2019-03-03] MEDS ORDERED: SYMBICORT1 AE1 IN (13:02)
[2019-03-03] MEDS ORDERED: MEMANTINE HCL10 MG PO (13:02)
--- NOTE | 2019-03-03 13:02 | NUR ---
PT SITTING UP IN BED WATCHING TV. RESP ARE EVEN AND UNLABORED. NO DISTRESS NOTED. CALL LIGHT IN REACH. WILL CONTINUE TO MONITOR.
[2019-03-03] MEDS ORDERED: PERCOCET1 TA4 PO (13:03)
--- NOTE | 2019-03-03 15:19 | NUR ---
JULIÁN AUGUSTIN CALLED AND REQUESTED UPDATE. UPDATE PROVIDED.
--- NOTE | 2019-03-03 16:00 | NUR ---
PT SITTING UP IN BED WATCHING TV. RESP ARE EVEN AND UNLABORED. NO DISTRESS NOTED. CALL LIGHT IN REACH. WILL CONTINUE TO MONITOR,.
--- NOTE | 2019-03-03 17:30 | NUR ---
PT SET UP FOR PM MEAL
--- NOTE | 2019-03-03 19:00 | NUR ---
PATIENT STTING UP WITH HOB NEARLY 90 DEGREES, ON 3L/MIN NC, SATS 91%, NO SOB NOTED. HEAD TO TOE NURSING ASSESSMENT PERFORMED. ALERT AND ORIENTED X4. COMPLAINS OF CHRONIC LOW BACK PAIN, RATES 8/10. R-WRIST IV INTACT AND FLUSHES PROPERLY, SALINE LOCKED. TRIPLE LUMEN R-FEMORAL PICC INTACT AND ALL 3 LUMENS FLUSH PROPERLY WELL RETURN BLOOD. SCD MACHINE INTACT ON LLE. R-ANKLE EDEMETOUS AND RED, PEDAL PULSE WEAK, R-MEDIAL ANKLE SURGICAL SITE STERI STRIPS INTACT, NO DRAINAGE. JIMENEZ CATHETER INTACT, DRAINS YELLOW AND CLOUDY URINE. POC FOR TONIGHT EXPLAINED, PATIENT AGREES AND UBDERSTANDS. SELF REPOSITIONS. CALL LIGHT WITHIN REACH. SR ON TELEMETRY, HR RATE 80'S-90'S. AFEBRILE. WILL CONTINNUE TO MONITOR.
--- NOTE | 2019-03-03 20:11 | NUR ---
DR JOVEL NOTIFIED OF BLOOD GLUCOSE 404 MG/DL. STAT BLOOD GLUCOSE ORDERED PER PROTOCOL AND NEW ORDERS RECEIVED.
--- NOTE | 2019-03-03 22:05 | NUR ---
PATIENT SITTING UP WITH HOB NEARLY 90 DEGREES. ON 3L/MIN NC, NO RESPIRATORY DISTRESS OBSERVED. HAS BEEN TALKING ON THE PHONE. R-ANKLE HAS BEEN ELEVATED WITH PILLOW. SR ON MONITOR. SHE REQUESTED NEW CALL LIGHT DUE TO SHE REPORTS HER CALL LIGHT VOLUME IS ALL THE WAY UP AND SHE STILL CANNOT HEAR TV. WILL CONTINUE TO MONITOR.
--- NOTE | 2019-03-03 22:49 | NUR ---
PATIENT GIVEN PAIN MEDICATION AT 2020, REQUESTS MORE PAIN MEDICATION, EXPLAINED FREQUENCY OF PAIN MEDICATION AND OFFERED TYLENOL ON EMAR FOR PAIN, AGREES. REQUESTED FOR A THIRD CUP OF COFFEE , SWEET AND LOW SUGAR AND CREAMERS.
[2019-03-04] VITALS (15 sets, daily range): BP systolic 95–138; BP diastolic 57–93
--- NOTE | 2019-03-04 00:02 | NUR ---
patient sitting up hob nearly 90 degrees, on 3l/min nc. no sob noted. sats 93%. is awake, on her phone. requests a 4th cup of coffee and creamer. farrell catheter intact. r-ankle elevated with pillow. scd machine intact on lle. sr on telemetry. call light within reach. will continue to monitor.
--- NOTE | 2019-03-04 02:03 | NUR ---
PATIENT SITTING UP WITH HOB NEARLY DEGREES, AWAKE, WATCHING TV. NO ACUTE DISTRESS SHOWN. CALL LIGHT WITHIN REACH.
--- NOTE | 2019-03-04 04:18 | NUR ---
PATIENT AWAKE, WATCHING TV. NO AUTE DISTRESS SHOWN. CALL LIGHT WITHIN REACH. WILL CONTINUE TO MONITOR,
[2019-03-04 05:14] LABS: MEAN CELL VOLUME 101.7 fL CALC (80.0-100.0); MEAN CORPUSCULAR HGB 30.4 pG CALC (26.0-32.0); MEAN CORPUSCULAR HGB CONC 29.9 g/L CALC (32.0-36.0); RED BLOOD COUNT 3.49 mill/uL (4.20-5.60); RED CELL DISTRI WIDTH 14.5 % (11.5-15.5)
[2019-03-04 05:25] LABS: HEMATOCRIT 35.5 % (37.0-47.0); HEMOGLOBIN 10.6 g/dl (12.0-16.0)
[2019-03-04 05:38] LABS: BUN 16 mg/dL (7-17); BUN/CREATININE RATIO 29 (12-20 (CALC)); CARBON DIOXIDE 37 mmol/l (22-30); CHLORIDE 98 mmol/l (95-108); CREATININE 0.5 mg/dL (0.5-1.0); GFR > 60 ML/MIN (>=60 (CALC)); GFR FOR AFR.AMER. > 60 ML/MIN (>=60 (CALC)); SODIUM 139 mmol/l (137-146)
[2019-03-04 05:42] LABS: ANION GAP 8 (6-22 (CALC)); POTASSIUM 4.4 mmol/l (3.5-5.1)
--- NOTE | 2019-03-04 06:00 | NUR ---
patient is laying with hob 30 degrees. arouses easily with verbal stimuli. on 3l/min nc. no sob noted. farrell catheter is intact and draining yellow, cloudy urine with sediment. sr on telemetry. no complaints or needs at this time. will continue to monitor.
--- NOTE | 2019-03-04 06:45 | NUR ---
RECIEVED REPORT FROM PAUL DE LA GARZA. ASSUMED PT CARE.
--- NOTE | 2019-03-04 07:36 | NUR ---
PT RESTING IN BED. A&OX3, ABLE TO MAKE NEEDS KNOWN. PT REMAINS ON 02@3LPM VIA NC. RESPIRATIONS EVEN/UNLABORED. ASSESSMENT COMPLETED. TONY REMAINS PATENT DRAINING TO BSD VIA GRAVITY. PT DENIES CHEST PAIN, SOB OR DISTRESS AT THIS TIME. CALL LIGHT IN REACH. WILL MONITOR.
--- NOTE | 2019-03-04 07:41 | NUR ---
DIETARY ON UNIT. PT REPOSTIONED SELF. BREAKFAST TRAY SET UP.
--- NOTE | 2019-03-04 09:03 | NUR ---
BLOOD CULTURE RESULTS 1 VIAL GROWING GRAM (+) [facility] CALLED TO AT 8AM NO NEW ORDERS AT THIS TIME.PATIENT IS ALREADY ON VANCOMYCIN.
--- NOTE | 2019-03-04 10:16 | NUR ---
fax sent to [facility] for pt records.
--- NOTE | 2019-03-04 12:00 | NUR ---
PT RESTING IN BED. RESPIRATIONS EVEN/UNLABORED. CONTINUES WITH NON-PRODUCTIVE COUGH. CALL LIGHT IN REACH. WILL MONITOR.
--- NOTE | 2019-03-04 14:00 | NUR ---
PT RESTING IN BED, WATCHING TV. OFFERS NO COMPLAINTS AT THIS TIME. CALL LIGHT IN REACH. WILL MONITOR.
--- NOTE | 2019-03-04 16:06 | NUR ---
PT RESTING IN BED, TALKING ON THE PHONE. OFFERS NO COMPLAINTS AT THIS TIME.
--- NOTE | 2019-03-04 18:55 | NUR ---
BEDSIDE REPORT RECEIVED FROM PAUL NOBLE. RT AT BEDSIDE FOR BREATHING TREATMENT.
--- NOTE | 2019-03-04 19:33 | NUR ---
PT SITTING UP IN BED TALKING ON CELL PHONE AND WATCHING TV; ALERT AND ORIENTED. C/O MIDBACK PAIN AND RIGHT FOOT PAIN. RESPIRATIONS EVEN AND UNLABORED ON OXYGEN 3L VIA NC; WHEN ASKED ABOUT IF PT FEELS SOB AND STATES, "NO MORE THAN USUAL." ASSESSMENT COMPLETED. LUNGS ARE COURSE THROUGHOUT, RIGHT FOOT HAS 2+ PITTING EDEMA WITH STERI STRIPS TO MEDIAL AND LATERAL ANKLE; ELEVEATED ON PILLOWS; PT IS NWB ON RIGHT FOOT; SHE STATES THAT SHE HAS A F/U APPT SCHEDULED TOMORROW WITH DR. GALVAN WHO DID HER RIGHT ANKLE FX REPAIR. JIMENEZ CATHETER DRAINING CLEAR YELLOW URINE IN ADEQUATE AMOUNTS. TRIPLE LUMEN RIGHT FEMORAL LINE FLUSHES; DRESSING IS BLOODY, BUT INTACT. PLAN OF CARE REVIEWED. PT ENCOURAGED TO VERBALIZE CONCERNS. STATES UNDERSTANDING. SAFETY MEASURES IN PLACE. CALL LIGHT WITHIN REACH.
--- NOTE | 2019-03-04 20:45 | NUR ---
RIGHT FEMORAL CENTRAL LINE DRESSING CHANGED; BROWN LUMEN DOES NOT FLUSH OR HAVE BLOOD RETURN; WHITE AND BLUE LUMENS FLUSH WELL.
--- NOTE | 2019-03-04 21:27 | NUR ---
LORTAB GIVEN WITH HS MEDICATIONS FOR 7/10 MIDBACK AND RIGHT FOOT PAIN. SNACK PROVIDED WITH INSULIN; ACCU CHECK 352.
--- NOTE | 2019-03-04 23:27 | NUR ---
VANCO TROUGH 8; VANCOMYCIN INFUSING NOW. PT AWAKE AND TALKING ON CELL PHONE. NO REQUESTS OR CONCERNS AT THIS TIME.
[2019-03-05] VITALS (9 sets, daily range): BP systolic 118–143; BP diastolic 59–86
--- NOTE | 2019-03-05 01:49 | NUR ---
PT ASLEEP AT THIS TIME WITH NO SIGNS OF DISTRESS. RESPIRATIONS EVEN AND UNLABORED ON OXYGEN. PT REMAINS ON CONTACT PRECAUTIONS FOR POSITIVE MRSA. JIMENEZ CONTINUES TO DRAIN CLEAR YELLOW URINE. VSS. AFEBRILE. SAFETY MEASURES IN PLACE. CALL LIGHT WITHIN REACH.
--- NOTE | 2019-03-05 03:19 | NUR ---
PT PLACED CALL LIGHT TO REQUEST PAIN MEDICATION FOR RIGHT ANKLE; LORTAB GIVEN AT THIS TIME.
--- NOTE | 2019-03-05 04:40 | NUR ---
LABS DRAWN FROM CENTRAL LINE AND FLUSHES PER PROTOCOL. PT ASLEEP. VSS.
[2019-03-05 05:00] LABS: HEMATOCRIT 32.9 % (37.0-47.0); HEMOGLOBIN 10.2 g/dl (12.0-16.0); MEAN CELL VOLUME 102.2 fL CALC (80.0-100.0); MEAN CORPUSCULAR HGB 31.7 pG CALC (26.0-32.0); RED BLOOD COUNT 3.22 mill/uL (4.20-5.60); RED CELL DISTRI WIDTH 14.6 % (11.5-15.5)
[2019-03-05 05:16] LABS: ANION GAP 6 (6-22 (CALC)); BUN 19 mg/dL (7-17); BUN/CREATININE RATIO 30 (12-20 (CALC)); CARBON DIOXIDE 38 mmol/l (22-30); CHLORIDE 100 mmol/l (95-108); CREATININE 0.6 mg/dL (0.5-1.0); GFR > 60 ML/MIN (>=60 (CALC)); GFR FOR AFR.AMER. > 60 ML/MIN (>=60 (CALC)); POTASSIUM 4.6 mmol/l (3.5-5.1); SODIUM 140 mmol/l (137-146)
--- NOTE | 2019-03-05 06:03 | NUR ---
RT AT BEDSIDE FOR BREATHING TREATMENT.
--- NOTE | 2019-03-05 07:00 | NUR ---
PT RESTING IN BED WITH EYES CLOSED. AROUSES TO VERBAL STIMULI. PT IS ALERT AND ORIENTED X3. SHIFT ASSESSMENT COMPLETED AT THIS TIME. IV PATENT X1. CALL LIGHT IN REACH. WILL CONTINUE TO MONITOR.
--- NOTE | 2019-03-05 07:30 | NUR ---
PT SET UP FOR AM MEAL PT STATES THAT SHE HATE HARD BOILED EGGS CALLED DIETARY FOR SCRAMBLED EGGS TO REPLACE HARD BOILED EGGS.
--- NOTE | 2019-03-05 08:20 | NUR ---
DR JOVEL AT BEDSIDE AT THIS TIME
--- NOTE | 2019-03-05 10:00 | NUR ---
PT RESTING IN BED AWAKE AN WATCHING TV. RESP ARE EVEN AND UNLABORED. NO DISTRESS NOTED. CALL LIGHT IN REACH. WILL CONTINUE TO MONIOTR.
--- NOTE | 2019-03-05 10:43 | NUR ---
REPORT CALL[facility] TO [facility]
--- NOTE | 2019-03-05 10:50 | NUR ---
PT TO [facility] ROOM 267 VIA WHEELCHAIR ACCOMPANIED BY NURSE.
--- NOTE | 2019-03-05 12:09 | NUR ---
PT HAD COME FROM ICU VIA WHEELCHAIR BY [facility]. O2 3L VIA NC. PT IS A&O X3. MEDICATED PT WITH TYLENOL FOR PAIN. PT LUNGS SOUND COARSE/WHEEZE .JIMENEZ IS PATENT WITH YELLOW URINE. SAFETY PRECAUTIONS REINFORCED AND CALL LIGHT IN REACH.
--- NOTE | 2019-03-05 12:12 | NUR ---
S: DARLENE COTTON is a 54 F who presents with PNEUMONIA. She has a history of COPD, T2DM, C. DIFF., CHRONIC PAIN SYNDROME, BIPOLAR-DEPRESSION, AND DEMENTIA. All medications in patient's chart were reviewed. O: VS: BP 143/76 mmHg, P 76 BPM, RR 20 BPM,T 97.4 F W 84.5 kg, HT 61 in, Scr= 0.6 mg/dl ,CrCl= 106 ml/min A: Blood culture shows Staph Hominis which is sensitive to Vamcomycin. Tr on 03/04/2019 @2230 = 8 P: Patient is on Vancomycin 1g IV Q12H and Zosyn 3.375g IV Q6H Vancomycin ordered for pharmacy to dose. Change to Vancomycin 1g IV Q8H. Vancomycin trough is drawn before the 4th dose on 03/06/2019 @ 0830. Vancomycin goal trough is between <15-20 mcg/ml>. Pharmacy will follow and or advise on antibiotics use as needed.
--- NOTE | 2019-03-05 15:05 | NUR ---
MEDICATED PT WITH LORTAB FOR PAIN IN BACK AND RIGHT ANKLE SEE EMAR. ASSISTED PT TO THE BSC. PT IS NON-BEARING IN RIGHT FOOT. CALL LIGHT IN REACH.
--- NOTE | 2019-03-05 18:55 | NUR ---
REPORT FROM SARA MILLER. PT SITTING UP IN BED RESTING WITH EYES CLOSED. NO DISTRESS NOTED. 02 @ 3L/M VIA etechies[employer]in. JIMENEZ PATENT DRAINING TO GRAVITY CLEAR YELLOW OUTPUT. PT REMAINS ON CONTACT PRECAUTIONS. CALL LIGHT WITHIN REACH. WILL CONTINUE TO MONITOR.
--- NOTE | 2019-03-05 19:56 | NUR ---
MEDICATED FOR PAIN IN BACK AND RIGHT ANKLE. ENCOURAGE REPOSITIONING FOR COMFORT. COFFEE PROVIDED UPON REQUEST. PT DENIES ANY OTHER WANTS OR NEEDS AT THIS TIME. CALL LIGHT WITHIN REACH. WILL CONTINUE TO MONITOR.
--- NOTE | 2019-03-06 00:25 | NUR ---
PT RESTING IN BED WITH EYES CLOSED. NO DISTRESS NOTED. PT WAKES EASILY. IV FLUSHED AT THIS TIME AND IV ABT INITIATED. PT TOLERATED WELL. CALL LIGHT WITHIN REACH. WILL CONTINUE TO MONITOR.
[2019-03-06 04:39] VITALS: BP 149/92
--- NOTE | 2019-03-06 04:52 | NUR ---
LABS OBTAINED VIA CENTRAL LINE. FLUSHED PER PROTOCOL. PT TOLERATED WELL.
[2019-03-06 05:11] LABS: MEAN CELL VOLUME 101.1 fL CALC (80.0-100.0); MEAN CORPUSCULAR HGB 30.9 pG CALC (26.0-32.0); MEAN CORPUSCULAR HGB CONC 30.6 g/L CALC (32.0-36.0); RED BLOOD COUNT 3.56 mill/uL (4.20-5.60); RED CELL DISTRI WIDTH 14.3 % (11.5-15.5)
[2019-03-06 05:32] LABS: ANION GAP 7 (6-22 (CALC)); BUN 20 mg/dL (7-17); BUN/CREATININE RATIO 31 (12-20 (CALC)); CARBON DIOXIDE 38 mmol/l (22-30); CHLORIDE 99 mmol/l (95-108); CREATININE 0.6 mg/dL (0.5-1.0); GFR > 60 ML/MIN (>=60 (CALC)); GFR FOR AFR.AMER. > 60 ML/MIN (>=60 (CALC)); POTASSIUM 4.7 mmol/l (3.5-5.1); SODIUM 139 mmol/l (137-146)
[2019-03-06 08:53] VITALS: BP 134/88
--- NOTE | 2019-03-06 08:55 | NUR ---
ASSESSMENT DONE. PT IS A&O X3. MEDICATED PT WITH LORTAB FOR PAIN SEE EMAR. TONY IS PATENT WITH YELLOW URINE. LUNGS SOUND COARSE/WHEEZES. O2 AT 3L VIA NC. CALL LIGHT IN REACH.
[2019-03-06 10:55] VITALS: BP 117/79
--- NOTE | 2019-03-06 11:05 | NUR ---
NOTIFIED DR. JOVEL RE: PT ACCU 410. MD STATED TO GAVE 14 UNITS OF INSULIN PER ORDER. JIMENEZ REMOVED AND PT TOLERATED WELL. CALL LIGHT IN REACH.
[2019-03-06 14:58] VITALS: BP 133/89
--- NOTE | 2019-03-06 16:00 | NUR ---
PT IS RESTING IN BED WITH NO S/S OF DISTRESS NOTED. PO FLUIDS PROVIDED. PT DENIES ANY OTHER NEEDS AT THIS TIME. CALL LIGHT IN REACH.
--- NOTE | 2019-03-06 19:01 | NUR ---
REPORT FROM SARA MILLER. PT SITTING UP IN BED EATING A SNACK. NO DISTRESS NOTED. 02 @ 3L/M VIA MO. PT REMAINS ON CONTACT PRECAUTIONS. PT STATE SHE IS HUNGRY. EDUCATION PROVIDED AT THIS TIME. CALL LIGHT WITHIN REACH. WILL CONTINUE TO MONITOR.
[2019-03-06 19:14] VITALS: BP 120/81
--- NOTE | 2019-03-06 21:04 | NUR ---
PT MEDICATED FOR BACK AND RIGHT ANKLE PAIN 8-10. DENIES ANY OTHER WANTS OR NEEDS. CALL LIGHT WITHIN REACH. WILL CONTINUE TO MONITOR.
[2019-03-06 23:00] VITALS: BP 128/82
--- NOTE | 2019-03-07 01:55 | NUR ---
IV ABT INFUSING WITHOUT DIFFICULTY. NO ADVERSE REACTION NOTED. CALL LIGHT WITHIN REACH. WILL CONTINUE TO MONITOR.
[2019-03-07 03:30] VITALS: BP 127/83
--- NOTE | 2019-03-07 03:36 | NUR ---
PT MEDICATED FOR GENERALIZED PAIN 8-10 WITH PRN LORTAB. CALL LIGHT WITHIN REACH. WILL CONTINUE TO MONITOR.
[2019-03-07 08:00] VITALS: BP 128/88
--- NOTE | 2019-03-07 08:00 | NUR ---
PT SEEN RESTING IN THE BED, NO DISTRESS. SHE DOES BECOME SHORT OF BREATH WITH EXERTION. RIGHT FEMORAL TLC. LUNGS WHEEZY PER HER NORM, 3 LPM NC.
[2019-03-07] MEDS ORDERED: PREDNISONE10 MG PO (09:47)
[2019-03-07] MEDS ORDERED: DOXYCYCL HYC100 MG PO (09:47)
[2019-03-07 10:31] VITALS: BP 129/87
--- NOTE | 2019-03-07 12:00 | NUR ---
PT SEEN BY DR JOVEL THIS MORNING, TO BE DISCHARGED HOME LATER TODAY WHEN HER FAMILY CAN COME TO PICK HER UP. PT REMAINS BEFORE, NO DISTRESS NOTED.
--- NOTE | 2019-03-07 16:21 | NUR ---
PT WILL BE DISCHARGED HOME AND THEN PROVIDED [facility] TO GET THERE. APPARENTLY THE PEOPLE WHO WERE GOING TO PICK HER UP ARE NOT ANSWERING THE PHONE. PT READIED FOR DISCHARGE AT THIS TIME.
--- NOTE | 2019-03-07 17:12 | NUR ---
PT WILL WAIT FOR SUPPER BEFORE LEAVING. FEMORAL TLC REMOVED WITHOUT INCIDENT.
--- NOTE | 2019-03-07 18:28 | NUR ---
PT LEAVES AT THIS TIME VIA WHEELCHAIR TO LOBBY WHERE [facility] WILL PICK HER UP.
== END 2019-03-07 18:26 | disposition home health service (06) | DRG 193 ==
LOC: ED 17:55 → ED-I 18:52 → ED 18:52 → ED-I 18:58 → ICU 18:59 → ED 18:59 → MS2 03-05 11:03
PROVIDERS: Family Medicine; ADMIT Internal Medicine; ATTEND Internal Medicine
PROC: 06HM33Z Insertion of Infusion Device into Right Femoral Vein, Percutaneous Approach (ICD-10-PCS; principal; 2019-03-02)
PROC: 5A09357 Assistance with Respiratory Ventilation, Less than 24 Consecutive Hours, Continuous Positive Airway Pressure (ICD-10-PCS; 2019-03-02)
DX: J18.9 Pneumonia, unspecified organism (principal); J96.22 Acute and chronic respiratory failure with hypercapnia; J96.21 Acute and chronic respiratory failure with hypoxia; I50.32 Chronic diastolic (congestive) heart failure; E87.2 Acidosis; R78.81 Bacteremia; J43.9 Emphysema, unspecified; E11.9 Type 2 diabetes mellitus without complications; G89.4 Chronic pain syndrome; F31.9 Bipolar disorder, unspecified; F20.9 Schizophrenia, unspecified; F17.200 Nicotine dependence, unspecified, uncomplicated; B95.7 Other staphylococcus as the cause of diseases classified elsewhere; S82.891D Other fracture of right lower leg, subsequent encounter for closed fracture with routine healing; X58.XXXD Exposure to other specified factors, subsequent encounter; Y95 Nosocomial condition; Z22.322 Carrier or suspected carrier of Methicillin resistant Staphylococcus aureus; Z87.01 Personal history of pneumonia (recurrent); Z99.81 Dependence on supplemental oxygen; Z87.891 Personal history of nicotine dependence; Z79.4 Long term (current) use of insulin
CPT/HCPCS: J1650

== ENCOUNTER 2019-03-12 16:25 | Observation (INO) | payer MEDICARE, OTHER ==
[~2019-03-12] VITALS: Ht 152.4 cm; Wt 81.9 kg
[2019-03-12] VITALS (9 sets, daily range): BP systolic 83–133; BP diastolic 64–91
[~2019-03-12 16:25] MED LIST changes: +DOXYCYCL HYC100 MG PO; +VENLAFAXINE150 M1 PO; +ZALEPLON5 MG PO
[2019-03-12 16:45] LABS: IMMATURE GRANULOCYTES 1.1 % (0.0-5.0); MEAN CELL VOLUME 98.6 fL CALC (80.0-100.0); MEAN CORPUSCULAR HGB 30.5 pG CALC (26.0-32.0); MEAN CORPUSCULAR HGB CONC 30.9 g/L CALC (32.0-36.0); NEUT# 15.66 thou/uL (2.00-7.15); RED BLOOD COUNT 4.39 mill/uL (4.20-5.60); RED CELL DISTRI WIDTH 15.2 % (11.5-15.5)
[2019-03-12 16:49] LABS: HEMATOCRIT 43.3 % (37.0-47.0); HEMOGLOBIN 13.4 g/dl (12.0-16.0)
[2019-03-12 17:11] LABS: ANION GAP 11 (6-22 (CALC)); BUN 15 mg/dL (7-17); BUN/CREATININE RATIO 44 (12-20 (CALC)); CARBON DIOXIDE 37 mmol/l (22-30); CHLORIDE 96 mmol/l (95-108); CREATININE 0.4 mg/dL (0.5-1.0); GFR > 60 ML/MIN (>=60 (CALC)); GFR FOR AFR.AMER. > 60 ML/MIN (>=60 (CALC)); POTASSIUM 4.3 mmol/l (3.5-5.1); SODIUM 139 mmol/l (137-146)
[2019-03-13] VITALS (11 sets, daily range): BP systolic 102–124; BP diastolic 61–82
[2019-03-13 01:19] LABS: URINE BILIRUBIN - DIPSTICK NEGATIVE (NEGATIVE); URINE BLOOD DIPSTICK TRACE-INTACT (NEGATIVE); URINE COLOR YELLOW; URINE GLUCOSE - DIPSTICK >=1000 mg/dL (NEGATIVE); URINE KETONE 15 mg/dL (NEGATIVE); URINE LEUK ESTERASE NEGATIVE (NEGATIVE); URINE NITRITE - DIPSTICK NEGATIVE (Negative); URINE PH 6.5 (4.5-8.0); URINE PROTEIN - DIPSTICK NEGATIVE (NEG-TRACE); URINE UROBILINOGEN - DIPSTICK 0.2 E.U./dL (0.2)
[2019-03-13 05:39] LABS: HEMATOCRIT 42.3 % (37.0-47.0); HEMOGLOBIN 12.7 g/dl (12.0-16.0); IMMATURE GRANULOCYTES 1.3 % (0.0-5.0); MEAN CELL VOLUME 100.2 fL CALC (80.0-100.0); MEAN CORPUSCULAR HGB 30.1 pG CALC (26.0-32.0); NEUT# 10.36 thou/uL (2.00-7.15); RED BLOOD COUNT 4.22 mill/uL (4.20-5.60); RED CELL DISTRI WIDTH 14.9 % (11.5-15.5)
[2019-03-13 05:53] LABS: BUN 16 mg/dL (7-17); BUN/CREATININE RATIO 43 (12-20 (CALC)); CHLORIDE 95 mmol/l (95-108); CREATININE 0.4 mg/dL (0.5-1.0); GFR > 60 ML/MIN (>=60 (CALC)); GFR FOR AFR.AMER. > 60 ML/MIN (>=60 (CALC)); POTASSIUM 5.1 mmol/l (3.5-5.1); SODIUM 139 mmol/l (137-146)
[2019-03-13 06:03] LABS: ANION GAP 9 (6-22 (CALC)); CARBON DIOXIDE 40 mmol/l (22-30)
[2019-03-14] VITALS (10 sets, daily range): BP systolic 100–144; BP diastolic 60–90
[2019-03-14 05:07] LABS: HEMATOCRIT 40.8 % (37.0-47.0); HEMOGLOBIN 12.4 g/dl (12.0-16.0); MEAN CELL VOLUME 101.5 fL CALC (80.0-100.0); MEAN CORPUSCULAR HGB 30.8 pG CALC (26.0-32.0); MEAN CORPUSCULAR HGB CONC 30.4 g/L CALC (32.0-36.0); RED BLOOD COUNT 4.02 mill/uL (4.20-5.60); RED CELL DISTRI WIDTH 14.7 % (11.5-15.5)
[2019-03-14 05:46] LABS: ANION GAP 11 (6-22 (CALC)); BUN 14 mg/dL (7-17); BUN/CREATININE RATIO 33 (12-20 (CALC)); CHLORIDE 95 mmol/l (95-108); CREATININE 0.4 mg/dL (0.5-1.0); GFR > 60 ML/MIN (>=60 (CALC)); GFR FOR AFR.AMER. > 60 ML/MIN (>=60 (CALC)); POTASSIUM 4.8 mmol/l (3.5-5.1); SODIUM 141 mmol/l (137-146)
[2019-03-14 05:55] LABS: CARBON DIOXIDE 40 mmol/l (22-30)
[2019-03-15 05:07] VITALS: BP 122/81
[2019-03-15 07:28] VITALS: BP 125/85
[2019-03-15 11:04] VITALS: BP 114/77
[2019-03-15 14:58] LABS: HEMOGLOBIN 11.6 g/dl (12.0-16.0); IMMATURE GRANULOCYTES 0.9 % (0.0-5.0); MEAN CELL VOLUME 102.6 fL CALC (80.0-100.0); MEAN CORPUSCULAR HGB 30.5 pG CALC (26.0-32.0); MEAN CORPUSCULAR HGB CONC 29.7 g/L CALC (32.0-36.0); NEUT# 10.94 thou/uL (2.00-7.15); RED BLOOD COUNT 3.8 mill/uL (4.20-5.60); RED CELL DISTRI WIDTH 14.7 % (11.5-15.5)
[2019-03-15 15:01] LABS: ANION GAP 10 (6-22 (CALC)); BUN 12 mg/dL (7-17); BUN/CREATININE RATIO 25 (12-20 (CALC)); CARBON DIOXIDE 39 mmol/l (22-30); CHLORIDE 96 mmol/l (95-108); CREATININE 0.5 mg/dL (0.5-1.0); GFR > 60 ML/MIN (>=60 (CALC)); GFR FOR AFR.AMER. > 60 ML/MIN (>=60 (CALC)); POTASSIUM 4.5 mmol/l (3.5-5.1); SODIUM 140 mmol/l (137-146)
[2019-03-15 15:35] VITALS: BP 106/67
[2019-03-15 19:08] VITALS: BP 110/72
[2019-03-15 23:25] VITALS: BP 129/81
[2019-03-16 04:13] VITALS: BP 121/78
[2019-03-16 05:37] LABS: HEMATOCRIT 40.3 % (37.0-47.0); IMMATURE GRANULOCYTES 0.8 % (0.0-5.0); MEAN CELL VOLUME 103.1 fL CALC (80.0-100.0); MEAN CORPUSCULAR HGB 30.7 pG CALC (26.0-32.0); MEAN CORPUSCULAR HGB CONC 29.8 g/L CALC (32.0-36.0); NEUT# 11.86 thou/uL (2.00-7.15); RED BLOOD COUNT 3.91 mill/uL (4.20-5.60); RED CELL DISTRI WIDTH 14.9 % (11.5-15.5)
[2019-03-16 05:45] LABS: ANION GAP 8 (6-22 (CALC)); BUN 12 mg/dL (7-17); BUN/CREATININE RATIO 25 (12-20 (CALC)); CHLORIDE 98 mmol/l (95-108); CREATININE 0.5 mg/dL (0.5-1.0); GFR > 60 ML/MIN (>=60 (CALC)); GFR FOR AFR.AMER. > 60 ML/MIN (>=60 (CALC)); POTASSIUM 4.4 mmol/l (3.5-5.1); SODIUM 142 mmol/l (137-146)
[2019-03-16 05:54] LABS: CARBON DIOXIDE 40 mmol/l (22-30)
[2019-03-16 07:57] VITALS: BP 109/62
[2019-03-16 11:20] VITALS: BP 115/75
[2019-03-16 16:39] VITALS: BP 119/64
[2019-03-16 19:28] VITALS: BP 141/80
[2019-03-17] VITALS (7 sets, daily range): BP systolic 104–172; BP diastolic 67–100
[2019-03-17 04:34] LABS: HEMATOCRIT 39.6 % (37.0-47.0); HEMOGLOBIN 11.9 g/dl (12.0-16.0); IMMATURE GRANULOCYTES 0.8 % (0.0-5.0); MEAN CELL VOLUME 102.3 fL CALC (80.0-100.0); MEAN CORPUSCULAR HGB 30.7 pG CALC (26.0-32.0); MEAN CORPUSCULAR HGB CONC 30.1 g/L CALC (32.0-36.0); NEUT# 8.71 thou/uL (2.00-7.15); RED BLOOD COUNT 3.87 mill/uL (4.20-5.60); RED CELL DISTRI WIDTH 15.1 % (11.5-15.5)
[2019-03-17 04:57] LABS: BUN 16 mg/dL (7-17); BUN/CREATININE RATIO 28 (12-20 (CALC)); CHLORIDE 100 mmol/l (95-108); CREATININE 0.6 mg/dL (0.5-1.0); GFR > 60 ML/MIN (>=60 (CALC)); GFR FOR AFR.AMER. > 60 ML/MIN (>=60 (CALC)); SODIUM 143 mmol/l (137-146)
[2019-03-17 05:03] LABS: ANION GAP 4 (6-22 (CALC))
[2019-03-17 05:07] LABS: CARBON DIOXIDE 43 mmol/l (22-30)
[2019-03-18] VITALS (7 sets, daily range): BP systolic 102–116; BP diastolic 63–84
[2019-03-18 09:57] LABS: HEMATOCRIT 40.4 % (37.0-47.0); HEMOGLOBIN 11.9 g/dl (12.0-16.0); IMMATURE GRANULOCYTES 0.9 % (0.0-5.0); MEAN CELL VOLUME 102.3 fL CALC (80.0-100.0); MEAN CORPUSCULAR HGB 30.1 pG CALC (26.0-32.0); MEAN CORPUSCULAR HGB CONC 29.5 g/L CALC (32.0-36.0); NEUT# 9.7 thou/uL (2.00-7.15); RED BLOOD COUNT 3.95 mill/uL (4.20-5.60); RED CELL DISTRI WIDTH 15.2 % (11.5-15.5)
[2019-03-18 10:04] LABS: ANION GAP 9 (6-22 (CALC)); BUN 13 mg/dL (7-17); BUN/CREATININE RATIO 23 (12-20 (CALC)); CARBON DIOXIDE 38 mmol/l (22-30); CHLORIDE 98 mmol/l (95-108); CREATININE 0.6 mg/dL (0.5-1.0); GFR > 60 ML/MIN (>=60 (CALC)); GFR FOR AFR.AMER. > 60 ML/MIN (>=60 (CALC)); SODIUM 141 mmol/l (137-146)
[2019-03-18] MEDS ORDERED: TRAZODONE300 MG PO (15:51)
[2019-03-18] MEDS ORDERED: FLONASE AL50 MCG/ACT (15:56)
[2019-03-18] MEDS ORDERED: VENLAFAXINE150 M1 PO (15:56)
[2019-03-19 04:49] VITALS: BP 111/77
[2019-03-19 07:40] VITALS: BP 106/76
[2019-03-19 09:20] LABS: HEMATOCRIT 40.8 % (37.0-47.0); HEMOGLOBIN 12.2 g/dl (12.0-16.0); IMMATURE GRANULOCYTES 0.8 % (0.0-5.0); MEAN CELL VOLUME 101.7 fL CALC (80.0-100.0); MEAN CORPUSCULAR HGB 30.4 pG CALC (26.0-32.0); MEAN CORPUSCULAR HGB CONC 29.9 g/L CALC (32.0-36.0); NEUT# 9.95 thou/uL (2.00-7.15); RED BLOOD COUNT 4.01 mill/uL (4.20-5.60)
[2019-03-19 09:40] LABS: ANION GAP 9 (6-22 (CALC)); BUN 14 mg/dL (7-17); BUN/CREATININE RATIO 26 (12-20 (CALC)); CARBON DIOXIDE 36 mmol/l (22-30); CHLORIDE 98 mmol/l (95-108); CREATININE 0.5 mg/dL (0.5-1.0); GFR > 60 ML/MIN (>=60 (CALC)); GFR FOR AFR.AMER. > 60 ML/MIN (>=60 (CALC)); POTASSIUM 4.2 mmol/l (3.5-5.1); SODIUM 139 mmol/l (137-146)
[2019-03-19 11:35] VITALS: BP 112/76
[2019-03-19 15:29] VITALS: BP 105/64
== END 2019-03-19 17:40 | disposition short-term general hospital (02) ==
LOC: ED 16:25 → ED-I 18:05 → ICU 18:25 → MS2 18:25 → ED 18:25 → MS2 03-14 14:00
PROVIDERS: Family Medicine; Internal Medicine; Nurse Practitioner Family; ADMIT Internal Medicine; ATTEND Internal Medicine
PROC: 06HM33Z Insertion of Infusion Device into Right Femoral Vein, Percutaneous Approach (ICD-10-PCS; principal; 2019-03-12)
PROC: 5A09357 Assistance with Respiratory Ventilation, Less than 24 Consecutive Hours, Continuous Positive Airway Pressure (ICD-10-PCS; 2019-03-12)
PROC: 3E0234Z Introduction of Serum, Toxoid and Vaccine into Muscle, Percutaneous Approach (ICD-10-PCS; 2019-03-15)
DX: J43.9 Emphysema, unspecified (principal); J96.22 Acute and chronic respiratory failure with hypercapnia; J96.21 Acute and chronic respiratory failure with hypoxia; J18.9 Pneumonia, unspecified organism; E11.9 Type 2 diabetes mellitus without complications; F03.90 Unspecified dementia, unspecified severity, without behavioral disturbance, psychotic disturbance, mood disturbance, and anxiety; G89.4 Chronic pain syndrome; F31.9 Bipolar disorder, unspecified; F41.9 Anxiety disorder, unspecified; F20.9 Schizophrenia, unspecified; I50.9 Heart failure, unspecified; N39.3 Stress incontinence (female) (male); F17.200 Nicotine dependence, unspecified, uncomplicated; Z23 Encounter for immunization; Z91.19 Patient's noncompliance with other medical treatment and regimen; Z99.81 Dependence on supplemental oxygen; Z22.322 Carrier or suspected carrier of Methicillin resistant Staphylococcus aureus; Z87.01 Personal history of pneumonia (recurrent); Z79.4 Long term (current) use of insulin

== ENCOUNTER 2019-04-23 16:00 | Emergency (ER) | payer MEDICARE, MEDICAID ==
[~2019-04-23] VITALS: Ht 152.4 cm; Wt 85.0 kg
[2019-04-23 17:01] LABS: ANION GAP 12 (6-22 (CALC)); BUN 11 mg/dL (7-17); BUN/CREATININE RATIO 19 (12-20 (CALC)); CARBON DIOXIDE 33 mmol/l (22-30); CHLORIDE 104 mmol/l (95-108); CREATININE 0.6 mg/dL (0.5-1.0); GFR > 60 ML/MIN (>=60 (CALC)); GFR FOR AFR.AMER. > 60 ML/MIN (>=60 (CALC)); SODIUM 145 mmol/l (137-146)
[2019-04-23 17:26] LABS: HEMATOCRIT 38.8 % (37.0-47.0); HEMOGLOBIN 11.8 g/dl (12.0-16.0); IMMATURE GRANULOCYTES 1.7 % (0.0-5.0); MEAN CELL VOLUME 99.5 fL CALC (80.0-100.0); MEAN CORPUSCULAR HGB 30.3 pG CALC (26.0-32.0); MEAN CORPUSCULAR HGB CONC 30.4 g/L CALC (32.0-36.0); NEUT# 7.24 thou/uL (2.00-7.15); RED BLOOD COUNT 3.9 mill/uL (4.20-5.60); RED CELL DISTRI WIDTH 16.1 % (11.5-15.5)
--- NOTE | 2019-04-23 17:49 | NUR ---
PT. TOOK BIPAP OFF. REFUSES. PLACED BACK ON NC.
[2019-04-23 18:23] LABS: URINE BILIRUBIN - DIPSTICK NEGATIVE (NEGATIVE); URINE BLOOD DIPSTICK NEGATIVE (NEGATIVE); URINE COLOR YELLOW; URINE GLUCOSE - DIPSTICK >=1000 mg/dL (NEGATIVE); URINE KETONE NEGATIVE (NEGATIVE); URINE LEUK ESTERASE NEGATIVE (NEGATIVE); URINE NITRITE - DIPSTICK NEGATIVE (Negative); URINE PH 5.5 (4.5-8.0); URINE PROTEIN - DIPSTICK TRACE mg/dL (NEG-TRACE); URINE SPECIFIC GRAVITY 1.025; URINE UROBILINOGEN - DIPSTICK 0.2 E.U./dL (0.2)
[2019-04-23 21:22] VITALS: BP 112/70
== END 2019-04-23 21:09 | disposition short-term general hospital (02) ==
LOC: ED 16:00 → ED-I 16:59 → ED 21:09
PROVIDERS: Family Medicine
DX: J43.9 Emphysema, unspecified (principal); I50.9 Heart failure, unspecified; E11.9 Type 2 diabetes mellitus without complications; F17.200 Nicotine dependence, unspecified, uncomplicated; Z79.4 Long term (current) use of insulin; R06.02 Shortness of breath; R94.31 Abnormal electrocardiogram [ECG] [EKG]

== ENCOUNTER 2019-05-27 07:31 | Inpatient (IN) | payer MEDICARE, MEDICAID ==
[~2019-05-27] VITALS: Ht 154.9 cm; Wt 86.2 kg
[2019-05-27 08:24] LABS: HEMOGLOBIN 12.8 g/dl (12.0-16.0); IMMATURE GRANULOCYTES 0.4 % (0.0-5.0); MEAN CORPUSCULAR HGB 30.5 pG CALC (26.0-32.0); MEAN CORPUSCULAR HGB CONC 30.5 g/L CALC (32.0-36.0); NEUT# 11.49 thou/uL (2.00-7.15); RED BLOOD COUNT 4.2 mill/uL (4.20-5.60); RED CELL DISTRI WIDTH 16.9 % (11.5-15.5)
[2019-05-27 08:46] LABS: ALBUMIN 3.7 g/dL (3.2-5.0); ALKALINE PHOSPHATASE 117 u/l (38-126); ANION GAP 12 (6-22 (CALC)); BILIRUBIN, TOTAL 0.7 mg/dL (0.0-1.4); BUN 9 mg/dL (7-17); BUN/CREATININE RATIO 22 (12-20 (CALC)); CARBON DIOXIDE 30 mmol/l (22-30); CHLORIDE 102 mmol/l (95-108); CREATININE 0.4 mg/dL (0.5-1.0); D-DIMER 0.41 mg/L (0.19-0.60); GFR > 60 ML/MIN (>=60 (CALC)); GFR FOR AFR.AMER. > 60 ML/MIN (>=60 (CALC)); INTERNATIONAL NORMALIZED RATIO 0.9 RATIO (0.7-1.3); PROTHROMBIN TIME 9.5 SECONDS (9.0-12.5); SGOT/AST 18 u/l (14-36); SODIUM 139 mmol/l (137-146); TOTAL PROTEIN 6.3 g/dL (6.3-8.2)
[2019-05-27 08:58] LABS: MYOGLOBIN 26 ng/mL (0 - 62)
[2019-05-27 11:43] LABS: URINE BLOOD DIPSTICK NEGATIVE (NEGATIVE); URINE COLOR YELLOW; URINE GLUCOSE - DIPSTICK 500 mg/dL (NEGATIVE); URINE KETONE >=80 mg/dL (NEGATIVE); URINE LEUK ESTERASE NEGATIVE (NEGATIVE); URINE NITRITE - DIPSTICK NEGATIVE (Negative); URINE PH 6.5 (4.5-8.0); URINE PROTEIN - DIPSTICK NEGATIVE (NEG-TRACE); URINE UROBILINOGEN - DIPSTICK 0.2 E.U./dL (0.2)
[2019-05-27 11:48] LABS: URINE BILIRUBIN - DIPSTICK SMALL (NEGATIVE)
[2019-05-27] MEDS ORDERED: ADVAIR DISK1 PO (14:53)
[2019-05-27] MEDS ORDERED: PREDNISONE10 MG PO (14:54)
[2019-05-27] MEDS ORDERED: NOVOLOG100 UNIT/M SC (14:55)
[2019-05-27] MEDS ORDERED: LEVEMIR100 UNIT/M SC (14:56)
[2019-05-27 20:00] VITALS: BP 114/66
[2019-05-28 00:30] VITALS: BP 106/70
[2019-05-28 03:50] VITALS: BP 101/69
[2019-05-28 06:17] LABS: HEMATOCRIT 36.8 % (37.0-47.0); HEMOGLOBIN 11.6 g/dl (12.0-16.0); IMMATURE GRANULOCYTES 0.7 % (0.0-5.0); MEAN CELL VOLUME 96.8 fL CALC (80.0-100.0); MEAN CORPUSCULAR HGB 30.5 pG CALC (26.0-32.0); MEAN CORPUSCULAR HGB CONC 31.5 g/L CALC (32.0-36.0); NEUT# 7.71 thou/uL (2.00-7.15); RED BLOOD COUNT 3.8 mill/uL (4.20-5.60); RED CELL DISTRI WIDTH 15.6 % (11.5-15.5)
[2019-05-28 06:37] LABS: ANION GAP 11 (6-22 (CALC)); BUN 13 mg/dL (7-17); BUN/CREATININE RATIO 33 (12-20 (CALC)); CARBON DIOXIDE 31 mmol/l (22-30); CHLORIDE 100 mmol/l (95-108); CREATININE 0.4 mg/dL (0.5-1.0); GFR > 60 ML/MIN (>=60 (CALC)); GFR FOR AFR.AMER. > 60 ML/MIN (>=60 (CALC)); POTASSIUM 4.3 mmol/l (3.5-5.1); SODIUM 138 mmol/l (137-146)
[2019-05-28] MEDS ORDERED: BUSPIRONE5 MG PO (15:50)
[2019-05-28] MEDS ORDERED: TRAZODONE50 MG PO (15:51)
[2019-05-28] MEDS ORDERED: RANITIDINE150 M1 PO (15:52)
[2019-05-28] MEDS ORDERED: BENZTROPINE0.5 MG PO (15:53)
[2019-05-28] MEDS ORDERED: FUROSEMIDE20 MG PO (15:58)
[2019-05-28] MEDS ORDERED: MYRBETRIQ50 MG PO (15:59)
[2019-05-28] MEDS ORDERED: SYMBICORT1 AE1 IN (16:01)
[2019-05-28] MEDS ORDERED: FLONASE AL50 MCG/ACT (16:02)
[2019-05-28] MEDS ORDERED: VENTOLIN HFA (16:03)
[2019-05-28] MEDS ORDERED: IPRATROPIU0.5 MG/3 M (16:04)
[2019-05-28] MEDS ORDERED: [UNRECOGNIZED DRUG - OTHER] OU (16:05)
[2019-05-28 16:06] VITALS: BP 121/72
[2019-05-28] MEDS ORDERED: LYRICA25 MG PO (16:06)
[2019-05-28] MEDS ORDERED: TOPAMAX50 MG PO (16:07)
[2019-05-28] MEDS ORDERED: RISPERDAL0.5 MG PO (16:08)
[2019-05-28] MEDS ORDERED: PROTONIX40 M2 PO (16:09)
[2019-05-28] MEDS ORDERED: SINGULAIR10 MG PO (16:10)
[2019-05-28] MEDS ORDERED: FLUOXETINE10 M2 PO (16:11)
[2019-05-28] MEDS ORDERED: ABILIFY5 MG PO (16:11)
[2019-05-28] MEDS ORDERED: VENLAFAXINE HCL75 M1 PO (16:12)
[2019-05-28] MEDS ORDERED: DALIRESP500 MCG PO (16:13)
[2019-05-28] MEDS ORDERED: FIORICET 50-3001 CAP PO (16:14)
[2019-05-28] MEDS ORDERED: ASPIRIN 8181 MG PO (16:15)
[2019-05-28] MEDS ORDERED: PROBIOTIC MULTI1 TAB (16:16)
[2019-05-28 18:44] VITALS: BP 115/73
[2019-05-29 03:25] VITALS: BP 125/75
[2019-05-29 05:01] LABS: HEMATOCRIT 37.4 % (37.0-47.0); HEMOGLOBIN 11.8 g/dl (12.0-16.0); IMMATURE GRANULOCYTES 0.5 % (0.0-5.0); MEAN CELL VOLUME 97.1 fL CALC (80.0-100.0); MEAN CORPUSCULAR HGB 30.6 pG CALC (26.0-32.0); MEAN CORPUSCULAR HGB CONC 31.6 g/L CALC (32.0-36.0); NEUT# 12.08 thou/uL (2.00-7.15); RED BLOOD COUNT 3.85 mill/uL (4.20-5.60); RED CELL DISTRI WIDTH 15.7 % (11.5-15.5)
[2019-05-29 05:17] LABS: ANION GAP 14 (6-22 (CALC)); BUN 17 mg/dL (7-17); BUN/CREATININE RATIO 34 (12-20 (CALC)); CARBON DIOXIDE 28 mmol/l (22-30); CHLORIDE 100 mmol/l (95-108); CREATININE 0.5 mg/dL (0.5-1.0); GFR > 60 ML/MIN (>=60 (CALC)); GFR FOR AFR.AMER. > 60 ML/MIN (>=60 (CALC)); MAGNESIUM 2.2 mg/dL (1.6-2.3); POTASSIUM 4.3 mmol/l (3.5-5.1); SODIUM 137 mmol/l (137-146)
[2019-05-29 07:50] VITALS: BP 134/83
[2019-05-29] MEDS ORDERED: SYMBICORT1 AE1 IN (11:16)
[2019-05-29] MEDS ORDERED: ADVAIR DISK1 PO (11:16)
[2019-05-29] MEDS ORDERED: FUROSEMIDE20 MG PO (11:16)
[2019-05-29] MEDS ORDERED: FLUOXETINE10 M2 PO (11:16)
[2019-05-29] MEDS ORDERED: LEVEMIR100 UNIT/M SC (11:16)
[2019-05-29] MEDS ORDERED: FLONASE AL50 MCG/ACT (11:16)
[2019-05-29] MEDS ORDERED: PREDNISONE10 MG PO (11:16)
[2019-05-29] MEDS ORDERED: IPRATROPIU0.5 MG/3 M IN (11:16)
[2019-05-29] MEDS ORDERED: ASPIRIN 8181 MG PO (11:16)
[2019-05-29] MEDS ORDERED: Levaquin PO (11:16)
[2019-05-29 15:07] VITALS: BP 128/83
== END 2019-05-29 16:04 | disposition home or self-care (01) | DRG 193 ==
LOC: ED 07:31 → ED-I 10:17 → ED 10:32 → MS2 10:33
PROVIDERS: Family Medicine; Nurse Practitioner Family; ADMIT Internal Medicine; ATTEND Internal Medicine
PROC: 05HB33Z Insertion of Infusion Device into Right Basilic Vein, Percutaneous Approach (ICD-10-PCS; principal; 2019-05-27)
DX: J18.9 Pneumonia, unspecified organism (principal); J96.22 Acute and chronic respiratory failure with hypercapnia; J96.21 Acute and chronic respiratory failure with hypoxia; J43.9 Emphysema, unspecified; E11.65 Type 2 diabetes mellitus with hyperglycemia; T38.0X5A Adverse effect of glucocorticoids and synthetic analogues, initial encounter; T43.506A Underdosing of unspecified antipsychotics and neuroleptics, initial encounter; T38.3X6A Underdosing of insulin and oral hypoglycemic [antidiabetic] drugs, initial encounter; F03.90 Unspecified dementia, unspecified severity, without behavioral disturbance, psychotic disturbance, mood disturbance, and anxiety; I50.9 Heart failure, unspecified; G89.4 Chronic pain syndrome; F31.9 Bipolar disorder, unspecified; F20.9 Schizophrenia, unspecified; F17.200 Nicotine dependence, unspecified, uncomplicated; Z91.19 Patient's noncompliance with other medical treatment and regimen; Z22.322 Carrier or suspected carrier of Methicillin resistant Staphylococcus aureus; Z99.81 Dependence on supplemental oxygen; Z59.1 Inadequate housing; Z79.52 Long term (current) use of systemic steroids; Z79.4 Long term (current) use of insulin
CPT/HCPCS: G0378

== ENCOUNTER 2019-06-04 16:46 | Emergency (ER) | payer MEDICARE, MEDICAID ==
[~2019-06-04] VITALS: Ht 154.9 cm; Wt 79.0 kg
[~2019-06-04 16:46] MED LIST changes: +ADVAIR DISK1 PO; +ASPIRIN 8181 MG PO; +FIORICET 50-3001 CAP PO; +FLUOXETINE10 M2 PO; +FUROSEMIDE20 MG PO; +IPRATROPIU0.5 MG/3 M; +IPRATROPIU0.5 MG/3 M IN; +Levaquin PO; +MYRBETRIQ50 MG PO; +NOVOLOG100 UNIT/M SC; +PROBIOTIC MULTI1 TAB; +RANITIDINE150 M1 PO; +TOPAMAX50 MG PO; +VENLAFAXINE HCL75 M1 PO; +VENTOLIN HFA
[2019-06-04 17:24] LABS: HEMATOCRIT 41.5 % (37.0-47.0); HEMOGLOBIN 13.5 g/dl (12.0-16.0); IMMATURE GRANULOCYTES 0.9 % (0.0-5.0); MEAN CELL VOLUME 94.5 fL CALC (80.0-100.0); MEAN CORPUSCULAR HGB 30.8 pG CALC (26.0-32.0); MEAN CORPUSCULAR HGB CONC 32.5 g/L CALC (32.0-36.0); NEUT# 11.21 thou/uL (2.00-7.15); RED BLOOD COUNT 4.39 mill/uL (4.20-5.60); RED CELL DISTRI WIDTH 14.8 % (11.5-15.5)
[2019-06-04 17:31] LABS: URINE BILIRUBIN - DIPSTICK NEGATIVE (NEGATIVE); URINE BLOOD DIPSTICK NEGATIVE (NEGATIVE); URINE COLOR YELLOW; URINE GLUCOSE - DIPSTICK >=1000 mg/dL (NEGATIVE); URINE KETONE 15 mg/dL (NEGATIVE); URINE LEUK ESTERASE NEGATIVE (NEGATIVE); URINE NITRITE - DIPSTICK NEGATIVE (Negative); URINE PH 7.5 (4.5-8.0); URINE PROTEIN - DIPSTICK NEGATIVE (NEG-TRACE); URINE UROBILINOGEN - DIPSTICK 0.2 E.U./dL (0.2)
[2019-06-04 17:47] LABS: ALBUMIN 3.9 g/dL (3.2-5.0); ALKALINE PHOSPHATASE 105 u/l (38-126); ANION GAP 14 (6-22 (CALC)); BILIRUBIN, TOTAL 0.6 mg/dL (0.0-1.4); BUN 10 mg/dL (7-17); BUN/CREATININE RATIO 23 (12-20 (CALC)); CARBON DIOXIDE 23 mmol/l (22-30); CHLORIDE 102 mmol/l (95-108); CREATININE 0.4 mg/dL (0.5-1.0); GFR > 60 ML/MIN (>=60 (CALC)); GFR FOR AFR.AMER. > 60 ML/MIN (>=60 (CALC)); LIPASE 80 u/l (23-300); POTASSIUM 3.5 mmol/l (3.5-5.1); SGOT/AST 26 u/l (14-36); SODIUM 136 mmol/l (137-146); TOTAL PROTEIN 6.6 g/dL (6.3-8.2)
[2019-06-04] MEDS ORDERED: HYOSCYAMINE0.125 M3 PO (18:03)
[2019-06-04 18:40] VITALS: BP 145/90
== END 2019-06-04 19:21 | disposition home or self-care (01) ==
LOC: ED 16:46
PROVIDERS: Family Medicine
DX: K52.9 Noninfective gastroenteritis and colitis, unspecified (principal); J43.9 Emphysema, unspecified; I50.9 Heart failure, unspecified; E11.9 Type 2 diabetes mellitus without complications; F03.90 Unspecified dementia, unspecified severity, without behavioral disturbance, psychotic disturbance, mood disturbance, and anxiety; F17.210 Nicotine dependence, cigarettes, uncomplicated; Z79.4 Long term (current) use of insulin

== ENCOUNTER 2019-06-07 12:55 | Inpatient (IN) | payer MEDICARE, MEDICAID ==
[~2019-06-07] VITALS: Ht 154.9 cm; Wt 74.8 kg
[~2019-06-07 12:55] MED LIST changes: +HYOSCYAMINE0.125 M3 PO
[2019-06-07 13:54] LABS: BARBITURATES NEGATIVE (NEGATIVE); COCAINE NEGATIVE (NEGATIVE); METHADONE NEGATIVE (NEGATIVE); OXCYCODONE NEGATIVE (NEGATIVE); TETRAHYDROCANNABIONOL NEGATIVE (NEGATIVE); TRICYLIC ANTIDEPRESSANTS NEGATIVE (NEGATIVE)
[2019-06-07 14:09] LABS: HEMATOCRIT 43.5 % (37.0-47.0); HEMOGLOBIN 14.2 g/dl (12.0-16.0); MEAN CELL VOLUME 93.8 fL CALC (80.0-100.0); MEAN CORPUSCULAR HGB 30.6 pG CALC (26.0-32.0); MEAN CORPUSCULAR HGB CONC 32.6 g/L CALC (32.0-36.0); NEUT# 11.4 thou/uL (2.00-7.15); RED BLOOD COUNT 4.64 mill/uL (4.20-5.60); RED CELL DISTRI WIDTH 14.5 % (11.5-15.5)
[2019-06-07 14:20] LABS: ALBUMIN 4.3 g/dL (3.2-5.0); ALKALINE PHOSPHATASE 97 u/l (38-126); ANION GAP 17 (6-22 (CALC)); BILIRUBIN, TOTAL 0.7 mg/dL (0.0-1.4); BUN 10 mg/dL (7-17); BUN/CREATININE RATIO 22 (12-20 (CALC)); CARBON DIOXIDE 25 mmol/l (22-30); CHLORIDE 97 mmol/l (95-108); CREATININE 0.4 mg/dL (0.5-1.0); GFR > 60 ML/MIN (>=60 (CALC)); GFR FOR AFR.AMER. > 60 ML/MIN (>=60 (CALC)); POTASSIUM 3.9 mmol/l (3.5-5.1); SGOT/AST 28 u/l (14-36); SODIUM 135 mmol/l (137-146); TOTAL PROTEIN 7.3 g/dL (6.3-8.2)
[2019-06-07 14:21] LABS: ACT PARTIAL THROMBO TIME 21.9 SECONDS (20.0-32.5); INTERNATIONAL NORMALIZED RATIO 0.9 RATIO (0.7-1.3); PROTHROMBIN TIME 9.6 SECONDS (9.0-12.5)
[2019-06-07 14:23] LABS: ETHYL ALCOHOL 0 mg/dl (0-30); LIPASE 77 u/l (23-300); MAGNESIUM 2.1 mg/dL (1.6-2.3)
[2019-06-07 15:17] LABS: URINE BILIRUBIN - DIPSTICK NEGATIVE (NEGATIVE); URINE BLOOD DIPSTICK NEGATIVE (NEGATIVE); URINE COLOR YELLOW; URINE GLUCOSE - DIPSTICK NEGATIVE (NEGATIVE); URINE KETONE 15 mg/dL (NEGATIVE); URINE LEUK ESTERASE NEGATIVE (NEGATIVE); URINE NITRITE - DIPSTICK NEGATIVE (Negative); URINE PH 6.5 (4.5-8.0); URINE PROTEIN - DIPSTICK NEGATIVE (NEG-TRACE); URINE SPECIFIC GRAVITY <=1.005; URINE UROBILINOGEN - DIPSTICK 0.2 E.U./dL (0.2)
[2019-06-07 19:10] VITALS: BP 92/67
[2019-06-08 04:31] LABS: IMMATURE GRANULOCYTES 0.8 % (0.0-5.0); MEAN CELL VOLUME 93.9 fL CALC (80.0-100.0); MEAN CORPUSCULAR HGB 30.6 pG CALC (26.0-32.0); MEAN CORPUSCULAR HGB CONC 32.6 g/L CALC (32.0-36.0); NEUT# 13.55 thou/uL (2.00-7.15); RED BLOOD COUNT 4.58 mill/uL (4.20-5.60); RED CELL DISTRI WIDTH 14.6 % (11.5-15.5)
[2019-06-08 04:48] VITALS: BP 111/72
[2019-06-08 04:50] LABS: ALKALINE PHOSPHATASE 102 u/l (38-126); ANION GAP 18 (6-22 (CALC)); BILIRUBIN, TOTAL 0.6 mg/dL (0.0-1.4); BUN 12 mg/dL (7-17); BUN/CREATININE RATIO 21 (12-20 (CALC)); CARBON DIOXIDE 23 mmol/l (22-30); CHLORIDE 99 mmol/l (95-108); CREATININE 0.6 mg/dL (0.5-1.0); GFR > 60 ML/MIN (>=60 (CALC)); GFR FOR AFR.AMER. > 60 ML/MIN (>=60 (CALC)); POTASSIUM 4.1 mmol/l (3.5-5.1); SGOT/AST 19 u/l (14-36); SODIUM 136 mmol/l (137-146); TOTAL PROTEIN 6.8 g/dL (6.3-8.2)
[2019-06-08 09:58] VITALS: BP 96/68
[2019-06-08 12:44] VITALS: BP 114/73
[2019-06-08 15:41] VITALS: BP 98/66
[2019-06-08 19:19] VITALS: BP 108/69
[2019-06-09 03:34] VITALS: BP 87/54
[2019-06-09 05:32] LABS: HEMATOCRIT 39.8 % (37.0-47.0); IMMATURE GRANULOCYTES 0.9 % (0.0-5.0); MEAN CORPUSCULAR HGB 30.4 pG CALC (26.0-32.0); MEAN CORPUSCULAR HGB CONC 32.7 g/L CALC (32.0-36.0); NEUT# 10.39 thou/uL (2.00-7.15); RED BLOOD COUNT 4.28 mill/uL (4.20-5.60); RED CELL DISTRI WIDTH 14.3 % (11.5-15.5)
[2019-06-09 05:52] LABS: ALBUMIN 3.8 g/dL (3.2-5.0); ALKALINE PHOSPHATASE 143 u/l (38-126); ANION GAP 16 (6-22 (CALC)); BUN 15 mg/dL (7-17); BUN/CREATININE RATIO 29 (12-20 (CALC)); CARBON DIOXIDE 22 mmol/l (22-30); CHLORIDE 100 mmol/l (95-108); CREATININE 0.5 mg/dL (0.5-1.0); GFR > 60 ML/MIN (>=60 (CALC)); GFR FOR AFR.AMER. > 60 ML/MIN (>=60 (CALC)); SGOT/AST 13 u/l (14-36); SODIUM 133 mmol/l (137-146); TOTAL PROTEIN 6.4 g/dL (6.3-8.2)
[2019-06-09 06:08] LABS: BILIRUBIN, TOTAL 0.3 mg/dL (0.0-1.4)
[2019-06-09 06:19] VITALS: BP 107/74
[2019-06-09 08:00] VITALS: BP 114/76
[2019-06-09 15:20] VITALS: BP 89/62
[2019-06-09 19:20] VITALS: BP 106/71
[2019-06-10 03:54] VITALS: BP 106/64
[2019-06-10 05:47] LABS: HEMOGLOBIN 13.9 g/dl (12.0-16.0); MEAN CELL VOLUME 95.3 fL CALC (80.0-100.0); MEAN CORPUSCULAR HGB 30.8 pG CALC (26.0-32.0); MEAN CORPUSCULAR HGB CONC 32.3 g/L CALC (32.0-36.0); NEUT# 10.02 thou/uL (2.00-7.15); RED BLOOD COUNT 4.51 mill/uL (4.20-5.60); RED CELL DISTRI WIDTH 14.5 % (11.5-15.5)
[2019-06-10 05:58] LABS: ANION GAP 17 (6-22 (CALC)); BUN 19 mg/dL (7-17); BUN/CREATININE RATIO 26 (12-20 (CALC)); CARBON DIOXIDE 22 mmol/l (22-30); CHLORIDE 102 mmol/l (95-108); CREATININE 0.7 mg/dL (0.5-1.0); GFR > 60 ML/MIN (>=60 (CALC)); GFR FOR AFR.AMER. > 60 ML/MIN (>=60 (CALC)); MAGNESIUM 2.3 mg/dL (1.6-2.3); POTASSIUM 4.5 mmol/l (3.5-5.1); SODIUM 136 mmol/l (137-146)
[2019-06-10 08:00] VITALS: BP 101/66
[2019-06-10 15:37] VITALS: BP 103/70
[2019-06-10] MEDS ORDERED: CARAFATE PO (16:50)
[2019-06-10] MEDS ORDERED: MEDDOSEPAK PO (16:58)
[2019-06-10] MEDS ORDERED: LEVAQUIN750 MG PO (17:00)
[2019-06-10] MEDS ORDERED: PREDNISONE10 MG PO ×2 (18:39→18:44)
== END 2019-06-10 18:42 | disposition home or self-care (01) | DRG 193 ==
LOC: ED 12:55 → ED-I 15:40 → ED 15:49 → ED-I 15:50 → MS2 18:39
PROVIDERS: Nurse Practitioner Family; ADMIT Internal Medicine; ATTEND Internal Medicine
DX: J18.9 Pneumonia, unspecified organism (principal); J96.22 Acute and chronic respiratory failure with hypercapnia; J96.21 Acute and chronic respiratory failure with hypoxia; E87.1 Hypo-osmolality and hyponatremia; J43.9 Emphysema, unspecified; F20.9 Schizophrenia, unspecified; I50.9 Heart failure, unspecified; E11.40 Type 2 diabetes mellitus with diabetic neuropathy, unspecified; E11.51 Type 2 diabetes mellitus with diabetic peripheral angiopathy without gangrene; N32.81 Overactive bladder; F17.200 Nicotine dependence, unspecified, uncomplicated; F03.90 Unspecified dementia, unspecified severity, without behavioral disturbance, psychotic disturbance, mood disturbance, and anxiety; K21.9 Gastro-esophageal reflux disease without esophagitis; G89.4 Chronic pain syndrome; Z79.4 Long term (current) use of insulin; Z87.01 Personal history of pneumonia (recurrent); Z91.19 Patient's noncompliance with other medical treatment and regimen; Z79.52 Long term (current) use of systemic steroids; Z99.81 Dependence on supplemental oxygen
CPT/HCPCS: G0378

== ENCOUNTER 2019-08-08 15:06 | Inpatient (IN) | payer MEDICARE, OTHER ==
[~2019-08-08] VITALS: Ht 154.9 cm; Wt 74.1 kg
[~2019-08-08 15:06] MED LIST changes: +CARAFATE PO
[2019-08-08 16:01] LABS: HEMATOCRIT 38.4 % (37.0-47.0); HEMOGLOBIN 12.3 g/dl (12.0-16.0); IMMATURE GRANULOCYTES 0.3 % (0.0-5.0); MEAN CELL VOLUME 97.5 fL CALC (80.0-100.0); MEAN CORPUSCULAR HGB 31.2 pG CALC (26.0-32.0); NEUT# 6.17 thou/uL (2.00-7.15); RED BLOOD COUNT 3.94 mill/uL (4.20-5.60); RED CELL DISTRI WIDTH 15.9 % (11.5-15.5)
[2019-08-08 16:14] LABS: HCG SERUM/URINE (NEG/POS) NEGATIVE (NEGATIVE)
[2019-08-08 16:17] LABS: ANION GAP 11 (6-22 (CALC)); BUN 7 mg/dL (7-17); BUN/CREATININE RATIO 23 (12-20 (CALC)); CHLORIDE 99 mmol/l (95-108); CREATININE 0.3 mg/dL (0.5-1.0); GFR > 60 ML/MIN (>=60 (CALC)); GFR FOR AFR.AMER. > 60 ML/MIN (>=60 (CALC)); POTASSIUM 3.6 mmol/l (3.5-5.1); SODIUM 137 mmol/l (137-146)
[2019-08-08 16:21] LABS: CARBON DIOXIDE 31 mmol/l (22-30)
[2019-08-08 18:01] LABS: URINE BILIRUBIN - DIPSTICK NEGATIVE (NEGATIVE); URINE BLOOD DIPSTICK NEGATIVE (NEGATIVE); URINE COLOR YELLOW; URINE GLUCOSE - DIPSTICK >=1000 mg/dL (NEGATIVE); URINE KETONE 15 mg/dL (NEGATIVE); URINE LEUK ESTERASE NEGATIVE (NEGATIVE); URINE NITRITE - DIPSTICK NEGATIVE (Negative); URINE PH 5.5 (4.5-8.0); URINE PROTEIN - DIPSTICK NEGATIVE (NEG-TRACE); URINE UROBILINOGEN - DIPSTICK 0.2 E.U./dL (0.2)
[2019-08-08 18:30] VITALS: BP 104/76
[2019-08-08 18:45] VITALS: BP 98/75
[2019-08-08 19:00] VITALS: BP 120/90
[2019-08-08 19:15] VITALS: BP 90/64
[2019-08-09] VITALS (7 sets, daily range): BP systolic 87–114; BP diastolic 49–79
[2019-08-09 10:42] LABS: HEMATOCRIT 40.3 % (37.0-47.0); HEMOGLOBIN 12.8 g/dl (12.0-16.0); IMMATURE GRANULOCYTES 0.8 % (0.0-5.0); MEAN CELL VOLUME 98.8 fL CALC (80.0-100.0); MEAN CORPUSCULAR HGB 31.4 pG CALC (26.0-32.0); MEAN CORPUSCULAR HGB CONC 31.8 g/L CALC (32.0-36.0); NEUT# 5.72 thou/uL (2.00-7.15); RED BLOOD COUNT 4.08 mill/uL (4.20-5.60); RED CELL DISTRI WIDTH 15.3 % (11.5-15.5)
[2019-08-09 11:09] LABS: BUN 11 mg/dL (7-17); BUN/CREATININE RATIO 28 (12-20 (CALC)); CARBON DIOXIDE 27 mmol/l (22-30); CHLORIDE 103 mmol/l (95-108); CREATININE 0.4 mg/dL (0.5-1.0); GFR > 60 ML/MIN (>=60 (CALC)); GFR FOR AFR.AMER. > 60 ML/MIN (>=60 (CALC)); MAGNESIUM 2.2 mg/dL (1.6-2.3); SODIUM 137 mmol/l (137-146)
[2019-08-09 11:11] LABS: ANION GAP 12 (6-22 (CALC)); POTASSIUM 4.5 mmol/l (3.5-5.1)
[2019-08-10 02:35] VITALS: BP 100/56
[2019-08-10 06:05] LABS: ANION GAP 14 (6-22 (CALC)); BUN 18 mg/dL (7-17); BUN/CREATININE RATIO 41 (12-20 (CALC)); CARBON DIOXIDE 26 mmol/l (22-30); CHLORIDE 99 mmol/l (95-108); CREATININE 0.4 mg/dL (0.5-1.0); GFR > 60 ML/MIN (>=60 (CALC)); GFR FOR AFR.AMER. > 60 ML/MIN (>=60 (CALC)); SODIUM 134 mmol/l (137-146)
[2019-08-10 06:13] LABS: POTASSIUM 5.2 mmol/l (3.5-5.1)
[2019-08-10 07:30] VITALS: BP 118/89
[2019-08-10 11:30] VITALS: BP 103/66
[2019-08-10 15:08] VITALS: BP 123/70
[2019-08-10 20:51] VITALS: BP 124/85
[2019-08-11] VITALS (8 sets, daily range): BP systolic 97–136; BP diastolic 56–78
[2019-08-11 13:10] LABS: ANION GAP 16 (6-22 (CALC)); BUN 26 mg/dL (7-17); BUN/CREATININE RATIO 41 (12-20 (CALC)); CARBON DIOXIDE 27 mmol/l (22-30); CHLORIDE 98 mmol/l (95-108); CREATININE 0.6 mg/dL (0.5-1.0); GFR > 60 ML/MIN (>=60 (CALC)); GFR FOR AFR.AMER. > 60 ML/MIN (>=60 (CALC)); POTASSIUM 4.4 mmol/l (3.5-5.1); SODIUM 136 mmol/l (137-146)
[2019-08-12 04:30] VITALS: BP 100/69
[2019-08-12 05:37] LABS: ANION GAP 13 (6-22 (CALC)); BUN 25 mg/dL (7-17); BUN/CREATININE RATIO 34 (12-20 (CALC)); CARBON DIOXIDE 29 mmol/l (22-30); CHLORIDE 101 mmol/l (95-108); CREATININE 0.7 mg/dL (0.5-1.0); GFR > 60 ML/MIN (>=60 (CALC)); GFR FOR AFR.AMER. > 60 ML/MIN (>=60 (CALC)); MAGNESIUM 2.6 mg/dL (1.6-2.3); POTASSIUM 4.6 mmol/l (3.5-5.1); SODIUM 139 mmol/l (137-146)
[2019-08-12 08:34] VITALS: BP 104/71
[2019-08-12 10:45] VITALS: BP 108/59
[2019-08-12 15:05] VITALS: BP 115/74
[2019-08-12 18:55] VITALS: BP 103/77
[2019-08-12 23:50] VITALS: BP 106/69
[2019-08-13 04:20] VITALS: BP 93/54
[2019-08-13 10:39] VITALS: BP 131/85
[2019-08-13 15:37] VITALS: BP 129/79
[2019-08-13] MEDS ORDERED: NOVOLOG100 UNIT/M SC (17:10)
[2019-08-13] MEDS ORDERED: LEVEMIR100 UNIT/M SC (17:13)
[2019-08-13] MEDS ORDERED: DALIRESP500 MCG PO (17:13)
[2019-08-13] MEDS ORDERED: MEDDOSEPAK PO (17:15)
[2019-08-13 19:13] VITALS: BP 115/77
[2019-08-14 10:16] VITALS: BP 109/80
== END 2019-08-14 13:00 | disposition home or self-care (01) | DRG 191 ==
LOC: ED 15:06 → ED-I 16:20 → ED 16:20 → ED-I 16:25 → ED 17:07 → ICU 17:08 → MS2 17:08
PROVIDERS: Family Medicine; Nurse Practitioner Family; ADMIT Internal Medicine; ATTEND Internal Medicine
DX: J43.9 Emphysema, unspecified (principal); J96.10 Chronic respiratory failure, unspecified whether with hypoxia or hypercapnia; E11.40 Type 2 diabetes mellitus with diabetic neuropathy, unspecified; G89.4 Chronic pain syndrome; F31.9 Bipolar disorder, unspecified; F20.9 Schizophrenia, unspecified; F03.90 Unspecified dementia, unspecified severity, without behavioral disturbance, psychotic disturbance, mood disturbance, and anxiety; K21.9 Gastro-esophageal reflux disease without esophagitis; G47.00 Insomnia, unspecified; F41.9 Anxiety disorder, unspecified; F17.200 Nicotine dependence, unspecified, uncomplicated; T38.3X6A Underdosing of insulin and oral hypoglycemic [antidiabetic] drugs, initial encounter; Z91.128 Patient's intentional underdosing of medication regimen for other reason; Z87.01 Personal history of pneumonia (recurrent); Z79.4 Long term (current) use of insulin; Z99.81 Dependence on supplemental oxygen; Z23 Encounter for immunization
CPT/HCPCS: G0378; J1650

== ENCOUNTER 2019-08-20 17:59 | Inpatient (IN) | payer MEDICARE, OTHER ==
[2019-08-20] VITALS (7 sets, daily range): BP systolic 108–129; BP diastolic 62–75
[~2019-08-20] VITALS: Ht 154.9 cm; Wt 73.0 kg
[2019-08-20 18:14] LABS: HEMATOCRIT 39.1 % (37.0-47.0); HEMOGLOBIN 12.8 g/dl (12.0-16.0); IMMATURE GRANULOCYTES 0.8 % (0.0-5.0); MEAN CELL VOLUME 94.9 fL CALC (80.0-100.0); MEAN CORPUSCULAR HGB 31.1 pG CALC (26.0-32.0); MEAN CORPUSCULAR HGB CONC 32.7 g/L CALC (32.0-36.0); NEUT# 18.27 thou/uL (2.00-7.15); RED BLOOD COUNT 4.12 mill/uL (4.20-5.60); RED CELL DISTRI WIDTH 14.6 % (11.5-15.5)
[2019-08-20 18:32] LABS: ALBUMIN 3.7 g/dL (3.2-5.0); ALKALINE PHOSPHATASE 153 u/l (38-126); BUN 10 mg/dL (7-17); BUN/CREATININE RATIO 30 (12-20 (CALC)); CARBON DIOXIDE 24 mmol/l (22-30); CHLORIDE 100 mmol/l (95-108); CREATININE 0.3 mg/dL (0.5-1.0); GFR > 60 ML/MIN (>=60 (CALC)); GFR FOR AFR.AMER. > 60 ML/MIN (>=60 (CALC)); SGOT/AST 16 u/l (14-36); SODIUM 136 mmol/l (137-146); TOTAL PROTEIN 6.6 g/dL (6.3-8.2)
[2019-08-20 18:38] LABS: ANION GAP 16 (6-22 (CALC)); BILIRUBIN, TOTAL 0.5 mg/dL (0.0-1.4); POTASSIUM 3.6 mmol/l (3.5-5.1)
[2019-08-20 20:37] LABS: MYOGLOBIN 34 ng/mL (0 - 62)
[2019-08-21] VITALS (18 sets, daily range): BP systolic 91–136; BP diastolic 57–84
[2019-08-22] VITALS (11 sets, daily range): BP systolic 85–172; BP diastolic 45–84
[2019-08-23] VITALS (16 sets, daily range): BP systolic 83–155; BP diastolic 53–88
[2019-08-23 13:13] LABS: HEMATOCRIT 39.5 % (37.0-47.0); HEMOGLOBIN 12.1 g/dl (12.0-16.0); MEAN CORPUSCULAR HGB CONC 30.6 g/L CALC (32.0-36.0); RED BLOOD COUNT 3.9 mill/uL (4.20-5.60); RED CELL DISTRI WIDTH 14.2 % (11.5-15.5)
[2019-08-23 13:14] LABS: MEAN CELL VOLUME 101.3 fL CALC (80.0-100.0)
[2019-08-23 13:36] LABS: ANION GAP 13 (6-22 (CALC)); BUN 20 mg/dL (7-17); BUN/CREATININE RATIO 27 (12-20 (CALC)); CARBON DIOXIDE 28 mmol/l (22-30); CHLORIDE 98 mmol/l (95-108); CREATININE 0.8 mg/dL (0.5-1.0); GFR > 60 ML/MIN (>=60 (CALC)); GFR FOR AFR.AMER. > 60 ML/MIN (>=60 (CALC)); POTASSIUM 4.2 mmol/l (3.5-5.1); SODIUM 135 mmol/l (137-146)
[2019-08-24] VITALS (12 sets, daily range): BP systolic 87–129; BP diastolic 52–73
[2019-08-25] VITALS (19 sets, daily range): BP systolic 91–147; BP diastolic 47–84
[2019-08-26 00:01] VITALS: BP 95/67
[2019-08-26 02:00] VITALS: BP 92/62
[2019-08-26 04:00] VITALS: BP 87/55
[2019-08-26] MEDS ORDERED: LEVAQUIN750 MG PO (09:08)
[2019-08-26] MEDS ORDERED: PREDNISONE10 MG PO (09:08)
[2019-08-26] MEDS ORDERED: LEVEMIR100 UNIT/M SC (09:08)
[2019-08-26 10:28] VITALS: BP 98/55
== END 2019-08-26 10:35 | DRG 189 ==
LOC: ED 17:59 → ED-I 19:43 → ED 20:31 → ICU 20:32
PROVIDERS: Emergency Medicine; Family Medicine; Internal Medicine; ADMIT Internal Medicine; ATTEND Internal Medicine
PROC: 5A09357 Assistance with Respiratory Ventilation, Less than 24 Consecutive Hours, Continuous Positive Airway Pressure (ICD-10-PCS; principal; 2019-08-20)
DX: J96.22 Acute and chronic respiratory failure with hypercapnia (principal); J43.9 Emphysema, unspecified; J96.21 Acute and chronic respiratory failure with hypoxia; E11.65 Type 2 diabetes mellitus with hyperglycemia; I50.9 Heart failure, unspecified; F41.9 Anxiety disorder, unspecified; F20.9 Schizophrenia, unspecified; G89.4 Chronic pain syndrome; F03.90 Unspecified dementia, unspecified severity, without behavioral disturbance, psychotic disturbance, mood disturbance, and anxiety; F31.9 Bipolar disorder, unspecified; T38.0X5A Adverse effect of glucocorticoids and synthetic analogues, initial encounter; T50.916A Underdosing of multiple unspecified drugs, medicaments and biological substances, initial encounter; F17.200 Nicotine dependence, unspecified, uncomplicated; Z91.128 Patient's intentional underdosing of medication regimen for other reason; Z79.4 Long term (current) use of insulin; Z99.81 Dependence on supplemental oxygen
CPT/HCPCS: J1650; J2060; J3475; Q9967

== ENCOUNTER 2019-12-06 13:07 | Observation (INO) | payer MEDICARE, MEDICAID ==
[~2019-12-06] VITALS: Ht 154.9 cm; Wt 79.0 kg
[2019-12-06 13:43] LABS: HEMATOCRIT 41.6 % (37.0-47.0); HEMOGLOBIN 13.7 g/dl (12.0-16.0); IMMATURE GRANULOCYTES 0.6 % (0.0-5.0); MEAN CELL VOLUME 95.4 fL CALC (80.0-100.0); MEAN CORPUSCULAR HGB 31.4 pG CALC (26.0-32.0); MEAN CORPUSCULAR HGB CONC 32.9 g/dL CAL (32.0-36.0); NEUT# 8.69 thou/uL (2.00-7.15); RED BLOOD COUNT 4.36 mill/uL (4.20-5.60); RED CELL DISTRI WIDTH 13.9 % (11.5-15.5)
[2019-12-06 14:05] LABS: URINE BILIRUBIN - DIPSTICK NEGATIVE (NEGATIVE); URINE BLOOD DIPSTICK NEGATIVE (NEGATIVE); URINE COLOR YELLOW; URINE GLUCOSE - DIPSTICK >=1000 mg/dL (NEGATIVE); URINE KETONE NEGATIVE (NEGATIVE); URINE LEUK ESTERASE NEGATIVE (NEGATIVE); URINE NITRITE - DIPSTICK NEGATIVE (Negative); URINE PH 5.5 (4.5-8.0); URINE PROTEIN - DIPSTICK NEGATIVE (NEG-TRACE); URINE UROBILINOGEN - DIPSTICK 0.2 E.U./dL (0.2)
[2019-12-06 14:45] LABS: ALKALINE PHOSPHATASE 109 u/l (38-126); BILIRUBIN, TOTAL 0.6 mg/dL (0.0-1.4); BUN 13 mg/dL (7-17); BUN/CREATININE RATIO 32 (12-20 (CALC)); CHLORIDE 98 mmol/l (95-108); CREATININE 0.4 mg/dL (0.5-1.0); GFR > 60 ML/MIN (>=60 (CALC)); GFR FOR AFR.AMER. > 60 ML/MIN (>=60 (CALC)); LIPASE 77 u/l (23-300); POTASSIUM 4.1 mmol/l (3.5-5.1); SGOT/AST 24 u/l (14-36); SODIUM 133 mmol/l (137-146); TOTAL PROTEIN 7.8 g/dL (6.3-8.2)
[2019-12-06 14:46] LABS: ALBUMIN 4.6 g/dL (3.2-5.0); ANION GAP 17 (6-22 (CALC)); CARBON DIOXIDE 22 mmol/l (22-30)
[2019-12-06 18:00] VITALS: BP 117/81
[2019-12-06 18:16] VITALS: BP 125/87
[2019-12-06 23:40] VITALS: BP 89/55
[2019-12-07 03:35] VITALS: BP 91/61
[2019-12-07 08:00] VITALS: BP 107/75
[2019-12-07 10:35] LABS: ANION GAP 14 (6-22 (CALC)); BUN 12 mg/dL (7-17); BUN/CREATININE RATIO 22 (12-20 (CALC)); CARBON DIOXIDE 24 mmol/l (22-30); CHLORIDE 97 mmol/l (95-108); CREATININE 0.5 mg/dL (0.5-1.0); GFR > 60 ML/MIN (>=60 (CALC)); GFR FOR AFR.AMER. > 60 ML/MIN (>=60 (CALC)); POTASSIUM 4.1 mmol/l (3.5-5.1); SODIUM 132 mmol/l (137-146)
[2019-12-07 11:00] VITALS: BP 93/65
[2019-12-07 15:10] VITALS: BP 98/67
[2019-12-07 18:30] VITALS: BP 97/67
[2019-12-07 23:30] VITALS: BP 104/67
[2019-12-08 03:30] VITALS: BP 92/60
[2019-12-08 07:50] VITALS: BP 126/77
[2019-12-08] MEDS ORDERED: LEVEMIR100 UNIT/M SC (10:38)
[2019-12-08 10:40] VITALS: BP 91/60
[2019-12-08 15:20] VITALS: BP 94/63
[2019-12-08 18:49] VITALS: BP 121/82
[2019-12-09 00:30] VITALS: BP 111/76
[2019-12-09 04:02] VITALS: BP 104/65
[2019-12-09 07:55] VITALS: BP 115/76
[2019-12-09 11:03] VITALS: BP 107/75
== END 2019-12-09 13:28 | disposition home or self-care (01) ==
LOC: ED 13:07 → ED-I 16:09 → ED 16:35 → MS2 16:36
PROVIDERS: Family Medicine; ADMIT Internal Medicine; ATTEND Internal Medicine
DX: E11.65 Type 2 diabetes mellitus with hyperglycemia (principal); J43.9 Emphysema, unspecified; I50.9 Heart failure, unspecified; T38.3X6A Underdosing of insulin and oral hypoglycemic [antidiabetic] drugs, initial encounter; G89.4 Chronic pain syndrome; F03.90 Unspecified dementia, unspecified severity, without behavioral disturbance, psychotic disturbance, mood disturbance, and anxiety; E87.2 Acidosis; F20.89 Other schizophrenia; F31.9 Bipolar disorder, unspecified; F17.210 Nicotine dependence, cigarettes, uncomplicated; Z79.4 Long term (current) use of insulin; Z99.81 Dependence on supplemental oxygen; Z86.14 Personal history of Methicillin resistant Staphylococcus aureus infection; Z91.128 Patient's intentional underdosing of medication regimen for other reason; Z20.828 Contact with and (suspected) exposure to other viral communicable diseases
CPT/HCPCS: G0378; J0692; Q9967